=== PATIENT | female | born 1950 | race Caucasian/White ===

== ENCOUNTER 2018-09-13 12:32 | Emergency (ER) | payer OTHER ==
--- OUTSIDE RECORDS SUMMARY | 2018-09-13 12:37 | XMS REPORT | Clinical Summary ---
:1950 Author Organization [facility] Address [address] [place] [address] Care Team Providers Name Role Phone Kyra Pruitt MD Primary Care Provider Allergies Active Allergy Reactions Severity Noted Date Comments Sulfamethoxazole-Trime Hives, Itching High 11/28/2017 thoprim Codeine Itching High 11/28/2017 hallucinations Lactase 04/06/2018 Inflammation Meperidine Hives, Itching, High 11/28/2017 hallucination Other (See Comments) Gluten 04/06/2018 Pressure / constipation Esomeprazole Magnesium Itching High 12/21/2017 Other Food 04/19/2018 nutrasweet Proton Pump Inhibitors Itching 11/28/2017 patoprazole and omeprazole Medications Medication Sig Dispensed Refills Start Date End Date Status albuterol Take 1 ampule by 0 Active (ACCUNEB) 1.25 nebulization every mg/3 mL nebulizer 6 (six) hours as solution needed for wheezing. albuterol (PROAIR Inhale 2 puffs 0 Active HFA,PROVENTIL every 6 (six) HFA,VENTOLIN HFA) hours as needed 90 mcg/actuation for wheezing. inhaler furosemide Take 20 mg by 0 06/11/2018 Active (LASIX) 20 mg mouth daily. tablet candesartan Take 8 mg by mouth 5 06/18/2018 Active (ATACAND) 8 MG daily. tablet traMADol (ULTRAM) Take 50 mg by 2 06/15/2018 Active 50 mg tablet mouth 2 (two) times a day. ondansetron Take 4 mg by mouth 2 07/05/2018 Active (ZOFRAN) 4 MG as needed. tablet ARMOUR THYROID 60 Take 60 mg by 2 06/26/2018 Active mg tablet mouth daily. traMADol (ULTRAM) Take 50 mg by 2 10/09/2017 Discontinued 50 mg tablet mouth 2 (two) 9 times a day as needed. furosemide Take 10 mg by 0 Discontinued (LASIX) 20 mg mouth 2 (two) 9 tablet times a day. Pt takes one half of a 20mg tab bid metoprolol Take 12.5 mg by 0 Discontinued tartrate mouth 2 (two) 9 (LOPRESSOR) 25 mg times a day. tablet albuterol Take 1 ampule by 0 Discontinued (ACCUNEB) 1.25 nebulization every 9 mg/3 mL nebulizer 6 (six) hours as solution needed for wheezing. losartan (COZAAR) Take 50 mg by 0 Discontinued 50 MG tablet mouth daily. 9 thyroid, pork, Take 1 tablet by 0 Discontinued (NATURE-THROID) mouth. 9 113.75 mg tablet UNABLE TO FIND Cleanse More 0 Discontinued 9 losartan (COZAAR) Take 100 mg by 0 Discontinued 100 MG tablet mouth daily. 9 losartan (COZAAR) Take 1 tablet (100 90 tablet 3 04/11/2018 Discontinued 100 MG tablet mg total) by mouth 9 daily. enoxaparin Inject 0.4 mL (40 5.6 mL 0 04/21/2018 (LOVENOX) 40 mg total) under 9 mg/0.4 mL syringe the skin daily for 14 days. furosemide Take 0.5 tablets 15 tablet 0 04/20/2018 (LASIX) 20 mg (10 mg total) by 9 tablet mouth daily for 30 days. Pt takes one half of a 20mg tab bid traMADol (ULTRAM) Take 1 tablet (50 28 tablet 0 04/20/2018 50 mg tablet mg total) by mouth 9 every 6 (six) hours as needed for moderate pain for up to 7 days. Active Problems Problem Noted Date Morbid (severe) obesity due to excess calories 04/18/2018 Preop cardiovascular exam 04/11/2018 Hypothyroid 04/11/2018 COPD (chronic obstructive pulmonary disease) 04/11/2018 Essential hypertension 04/11/2018 LVH (left ventricular hypertrophy) 04/11/2018 Nonrheumatic aortic valve insufficiency 04/11/2018 Encounters Date Type Specialty Care Team Description Orders Only General Surgery Crane, Essential hypertension ( Primary Dx); 9 Joselyn L, Morbid (severe) obesity due to excess calories (HCC); MA Hypothyroidism, unspecified type; Bariatric surgery status; Intestinal malabsorption, unspecified type; Weight loss; Vitamin deficiency Hospital Encounter Radiology Clarence Garcia 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 Hospital Encounter Clarence Crawley 9 MD Erik Hospital Encounter Radiology Clarence Garcia 9 MD Erik Transcribe Orders Radiology Clarence Garcia 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 (Primary Dx) Office Visit General Surgery Loreta Palm Surgery follow-up 9 N., PA examination (Primary Sergio, Jose, Dx) Orders Only General Surgery Antonia Garcia, JOS Obesity (BMI 35.0- 39.9 9 without comorbidity) (Primary Dx) Telephone General Surgery Ion, 9 Joselyn L, MA Telephone General Surgery Ion, 9 Joselyn L, MA Telephone General Surgery Crane, 9 Joselyn L, MA Orders Only General Surgery RadhaAntonia, MA Weight loss (Primary Dx); 9 Vitamin deficiency; Intestinal malabsorption, unspecified type; Bariatric surgery status Documentation Weight Management Damaris Cano 30 Day Bariatric 9 Follow Up Office Visit General Surgery Sergio, Jose, Morbid obesity (HCC) ( Primary Dx); 9 Essential hypertension; Loreta Palm BMI 40.0-44.9, adult (HCC); N., PA Other specified hypothyroidism; Fibromyalgia Telephone General Surgery Loreta Palm 9 NGeno, PA Patient Outreach Quality Stacy Billings 9 PharmD Telephone General Surgery Jose Hill 9 MD Telephone General Surgery Jose Hill, Linsey MCDUFFIE Surgery General Surgery Sergio, Jose, LAPAROSCOPIC LYSIS OF 9 ADHESIONS, REMOVAL OF ERODED BAND MESH , PARTIAL GASTRECTOMY WITH MONI EN Y GASTROJEJUNOSTOMY WITH INTRAOPERATIVE ENDOSCOPY Anesthesia Event General Surgery Seun Smyth, Linsey Trevino NP Hospital Encounter General Surgery Sergio, Jose, Morbid (severe) obesity due to excess calories (HCC) (Primary Dx); 9 - MD Other complications of gastric band procedure; Swallowing difficulty; 9 Gastric reflux Office Visit Cardiology Edson Aranda Preop cardiovascular exam ( Primary Dx); 9 MD Guilherme Essential hypertension; Nonrheumatic aortic valve insufficiency; LVH (left ventricular hypertrophy) Transcribe Orders Procedural Cardiology Edson Aranda Pre-op evaluation 9 MD Guilherme (Primary Dx) Orders Only General Surgery Moore, Lyudmila Cardiomyopathy, 9 R, RN unspecified type (HCC) (Primary Dx) Orders Only General Surgery Moore, Lyudmila Preoperative testing 9 R, RN (Primary Dx) Orders Only General Surgery Moore, Lyudmila Preoperative testing 9 R, RN (Primary Dx) Pre-Admit Testing Pre-Admission Testing Sergio, Jose, Preoperative testing; 9 Appointment MD Bariatric surgery status Orders Only General Surgery Moore, Lyudmila Preoperative testing (Primary Dx); 9 R, ruffling hemmer automatic surgery status Office Visit General Surgery Sergio, Jose, Gastroesophageal reflux disease, esophagitis presence not specified (Primary Dx); 8 Gastric band erosion; Morbid obesity due to excess calories (HCC); Essential hypertension Consult Weight Management Sergio, Joes, History of bariatric surgery (Primary Dx); 8 Hypertension, unspecified type Leydi Champagne, RD Consult Weight Management Sergio, Jose, History of bariatric surgery; 8 Hypertension, unspecified type 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 Bruno, 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 Surgery Gastroenterology Sergio, Jose, EGD WITH BIOPSY 8 Anesthesia Event Gastroenterology Jordin Chew MD Hospital Encounter Gastroenterology Bhumika HillilAnderson MD Transcribe Orders Weight Management (Del)Anderson Moyer Abstract General Surgery Antonia Garcia MA 8 Office Visit General Surgery Jose Hill, Gastroesophageal reflux disease, esophagitis presence not specified (Primary Dx); Anderson MCDUFFIE Morbid obesity due to excess calories; History of bariatric surgery; Hypertension, unspecified type; Dysphagia, unspecified type after 09/12/2017 Family History Medical History Relation Name Comments Alzheimer's disease Mother Relation Name Status Comments Mother Social History Tobacco Use Types Packs/Day Years Used Date Never Smoker Smokeless Tobacco: Never Used Alcohol Use Drinks/Week oz/Week Comments No Sex Assigned at Date Recorded Not on file Job Start Date Occupation Industry Not on file Not on file Not on file Travel History Travel Start Travel End No recent travel history available. Last Filed Vital Signs Vital Sign Reading Time Taken Blood Pressure 136/64 09/05/2018 1:00 PM CDT Pulse 66 09/05/2018 1:00 PM CDT Temperature 36.6 C (97.9 F) 09/05/2018 8:35 AM CDT Respiratory Rate 18 09/05/2018 1:00 PM CDT Oxygen Saturation 98% 09/05/2018 1:00 PM CDT Inhaled Oxygen Concentration - - Weight 90.7 kg (200 lb) 09/05/2018 8:43 AM CDT Height 160 cm (5' 3") 09/05/2018 8:43 AM CDT Body Mass Index 35.43 09/05/2018 8:43 AM CDT Plan of Treatment Date Type Specialty Care Team Description 2018 Consult Weight Management Jose Hill MD [address] [facility] [address] [place] [id number] [phone] 10/16/2018 Office Visit General Surgery Jose Hill MD [address] [facility] [address] [place] [id number] Health Maintenance Due Date Last Done Comments BREAST CANCER SCREENING 2002 COLONOSCOPY SCREENING 2002 SHINGLES VACCINES (#1) 2002 65+ PNEUMOCOCCAL VACCINE (1 of 2 - PCV13) 2017 INFLUENZA VACCINE 10/25/2018 Implants Implanted Type Area Cosmetics Demonstrator Device Shelf Model / Identifier Expiration Serial / Date Lot Reprocessed Ethicon Endo 45cm Ultracision Harmonic Connor Curved Lamberto, With Advanced Hemostasis Cautery / N/A: SEBASTIÁN 11/15/2020 [id number] / Implanted: Qty: 1 on 04/18/2018 by Jose Hill MD Electrosurgery N/A SUSTAINABILITY / SOLUTIONS [id number] (FORMERLY ASCENT) Drain Wnd Chnl 19fr 4in Rnd Hbls Fl-Flut W/ 4in Trocar - [id number] Surgical N/A: ETHICON DIV OF 2231 / Implanted: Qty: 1 on 04/18/2018 by Jose Hill MD Implants; N/A AMBER & / Expanders; AMBER Extenders; Surgical Wires Procedures Procedure Name Priority Date/Time Associated Comments Diagnosis US NEEDLE BIOPSY Routine 09/05/2018 10:57 Neoplasm of Results for this AM CDT uncertain behavior procedure are in of left kidney the results section. SURGICAL PATHOLOGY Routine 09/05/2018 10:43 Results for this REQUEST AM CDT procedure are in the results section. ESTIMATED GFR STAT 09/05/2018 8:29 Results for this AM CDT procedure are in the results section. BASIC METABOLIC PANEL STAT 09/05/2018 8:29 Results for this AM CDT procedure are in the results section. PARTIAL THROMBOPLASTIN STAT 09/05/2018 8:29 Results for this TIME (PTT) AM CDT procedure are in the results section. PROTHROMBIN TIME WITH STAT 09/05/2018 8:29 Results for this INR AM CDT procedure are in the results section. HC COMPLETE BLD COUNT STAT 09/05/2018 8:29 Results for this W/AUTO DIFF AM CDT procedure are in the results section. T3 Routine 06/19/2018 8:46 Weight loss Results for this AM CDT Vitamin deficiency procedure are in Intestinal the results malabsorption, section. unspecified type Bariatric surgery status ZINC LEVEL, SERUM Routine 06/19/2018 8:46 Weight loss Results for this AM CDT Vitamin deficiency procedure are in Intestinal the results malabsorption, section. unspecified type Bariatric surgery status VITAMIN B1 LEVEL, WHOLE Routine 06/19/2018 8:46 Weight loss Results for this BLOOD AM CDT Vitamin deficiency procedure are in Intestinal the results malabsorption, section. unspecified type Bariatric surgery status FERRITIN LEVEL Routine 06/19/2018 8:46 Weight loss Results for this AM CDT Vitamin deficiency procedure are in Intestinal the results malabsorption, section. unspecified type Bariatric surgery status FOLATE LEVEL Routine 06/19/2018 8:46 Weight loss Results for this AM CDT Vitamin deficiency procedure are in Intestinal the results malabsorption, section. unspecified type Bariatric surgery status COPPER LEVEL, SERUM Routine 06/19/2018 8:46 Weight loss Results for this AM CDT Vitamin deficiency procedure are in Intestinal the results malabsorption, section. unspecified type Bariatric surgery status VITAMIN D 25 HYDROXY Routine 06/19/2018 8:46 Weight loss Results for this LEVEL AM CDT Vitamin deficiency procedure are in Intestinal the results malabsorption, section. unspecified type Bariatric surgery status VITAMIN B12 LEVEL Routine 06/19/2018 8:46 Weight loss Results for this AM CDT Vitamin deficiency procedure are in Intestinal the results malabsorption, section. unspecified type Bariatric surgery status VITAMIN A LEVEL, PLASMA Routine 06/19/2018 8:46 Weight loss Results for this OR SERUM AM CDT Vitamin deficiency procedure are in Intestinal the results malabsorption, section. unspecified type Bariatric surgery status CBC WITH PLATELET AND Routine 06/19/2018 8:46 Weight loss Results for this DIFFERENTIAL AM CDT Vitamin deficiency procedure are in Intestinal the results malabsorption, section. unspecified type Bariatric surgery status PARATHYROID HORMONE Routine 06/19/2018 8:46 Weight loss Results for this AM CDT Vitamin deficiency procedure are in Intestinal the results malabsorption, section. unspecified type Bariatric surgery status HEMOGLOBIN A1C Routine 06/19/2018 8:46 Weight loss Results for this AM CDT Vitamin deficiency procedure are in Intestinal the results malabsorption, section. unspecified type Bariatric surgery status THYROID STIMULATING Routine 06/19/2018 8:46 Weight loss Results for this HORMONE AM CDT Vitamin deficiency procedure are in Intestinal the results malabsorption, section. unspecified type Bariatric surgery status T4, FREE Routine 06/19/2018 8:46 Weight loss Results for this AM CDT Vitamin deficiency procedure are in Intestinal the results malabsorption, section. unspecified type Bariatric surgery status TOTAL IRON BINDING Routine 06/19/2018 8:46 Weight loss Results for this CAPACITY AM CDT Vitamin deficiency procedure are in Intestinal the results malabsorption, section. unspecified type Bariatric surgery status LIPID PANEL Routine 06/19/2018 8:46 Weight loss Results for this AM CDT Vitamin deficiency procedure are in Intestinal the results malabsorption, section. unspecified type Bariatric surgery status COMPREHENSIVE METABOLIC Routine 06/19/2018 8:46 Weight loss Results for this PANEL AM CDT Vitamin deficiency procedure are in Intestinal the results malabsorption, section. unspecified type Bariatric surgery status HC COMPLETE BLD COUNT Routine 04/20/2018 4:10 Results for this W/AUTO DIFF AM ROUTER TENDER procedure are in the results section. HC COMPLETE BLD COUNT Timed 04/19/2018 5:30 Results for this W/AUTO DIFF PM ROUTER TENDER procedure are in the results section. FL UGI W KUB Routine 04/19/2018 9:58 Results for this AM ROUTER TENDER procedure are in the results section. ESTIMATED GFR Routine 04/19/2018 5:33 Results for this AM ROUTER TENDER procedure are in the results section. BASIC METABOLIC PANEL Routine 04/19/2018 5:33 Results for this AM ROUTER TENDER procedure are in the results section. HC COMPLETE BLD COUNT Routine 04/19/2018 5:33 Results for this W/AUTO DIFF AM ROUTER TENDER procedure are in the results section. ESTIMATED GFR Routine 04/18/2018 8:09 Results for this PM ROUTER TENDER procedure are in the results section. BASIC METABOLIC PANEL Routine 04/18/2018 8:09 Results for this PM ROUTER TENDER procedure are in the results section. HC COMPLETE BLD COUNT Routine 04/18/2018 8:09 Results for this W/AUTO DIFF PM ROUTER TENDER procedure are in the results section. ID AN ELECTIVE Routine 04/18/2018 1:36 ENDOTRACHEAL AIRWAY PM ROUTER TENDER Procedure Note - Aric Lal CRNA - 04/18/2018 1:36 PM ROUTER TENDER ANESTHESIA INTUBATION Date/Time: 04/18/2018 1:11 PM Performed by: Aric Lal CRNA Authorized by: Ti Sarmiento MD Location: OR Urgency: Elective Difficult Airway: No Anesthesiologist: Ti Sarmiento MD Resident/REDYE HAND/AA: Aric Lal CRNA Performed by: resident/REDYE HAND/AA Preoxygenated with 100% O2: Yes Mask Ventilation: Not attempted Final Airway Type: Endotracheal airway Final Endotracheal Airway: ETT Cuffed: Yes Technique Used: Direct laryngoscopy Devices/Methods Used in Placement: Intubating stylet Insertion Site: Oral Blade Type: Romero Laryngoscope Blade/Videolaryngoscope Blade Size: 2 ETT Size (mm): 7.0 Cuff at minimum occlusion pressure: Yes Measured from: Gums ETT to Gums (cm): 21 Placement Verified by: CO2 detection, direct visualization and equal breath sounds Laryngoscopic view: Grade IIa - partial view of glottis Rapid Sequence Induction (RSI): Yes Number of Attempts at Approach: 1 GASTROENTEROSTOMY, MONI-EN-Y, 04/18/2018 1:15 PM Other complications of gastric LAPAROSCOPIC, WITH ROUTER TENDER band procedure INTRAOPERATIVE ENDOSCOPY Swallowing difficulty Gastric reflux Case Notes BMI 41, R/S PER LAN 04/10 K[facility] Special Needs BMI 41 SURGICAL PATHOLOGY REQUEST Routine 04/18/2018 Results for 8:55 AM ROUTER TENDER this procedure are in the results section. ECHOCARDIOGRAM 2D COMPLETE W Routine 04/11/2018 Pre-op evaluation Results for MMODE SPECTRAL COLOR DOPPLER 10:06 AM ROUTER TENDER this (13367) procedure are in the results section. NM MYOCARDIAL PERFUSION STRESS Routine 04/11/2018 Pre-operative Results for ONLY 10:06 AM ROUTER TENDER cardiovascular this examination procedure are in the results section. CV STRESS TEST NUCLEAR CARDIO Routine 04/11/2018 Pre-operative Results for 10:06 AM ROUTER TENDER cardiovascular this examination procedure are in the results section. URINALYSIS, AUTOMATED WITH Routine 04/06/2018 Preoperative Results for MICROSCOPY 5:12 PM ROUTER TENDER testing this Bariatric surgery procedure are status in the results section. ECG 12-LEAD Routine 04/06/2018 Preoperative Results for 2:26 PM ROUTER TENDER testing this Bariatric surgery procedure are status in the results section. HEMOGLOBIN A1C Routine 04/06/2018 Preoperative Results for 2:15 PM ROUTER TENDER testing this Bariatric surgery procedure are status in the results section. PARATHYROID HORMONE Routine 04/06/2018 Preoperative Results for 2:15 PM ROUTER TENDER testing this Bariatric surgery procedure are status in the results section. HC COMPLETE BLD COUNT W/AUTO Routine 04/06/2018 Preoperative Results for DIFF 2:15 PM ROUTER TENDER testing this Bariatric surgery procedure are status in the results section. PROTHROMBIN TIME WITH INR Routine 04/06/2018 Preoperative Results for 2:15 PM ROUTER TENDER testing this Bariatric surgery procedure are status in the results section. PARTIAL THROMBOPLASTIN TIME Routine 04/06/2018 Preoperative Results for (PTT) 2:15 PM ROUTER TENDER testing this Bariatric surgery procedure are status in the results section. VITAMIN A LEVEL, PLASMA OR Routine 04/06/2018 Preoperative Results for SERUM 2:15 PM ROUTER TENDER testing this Bariatric surgery procedure are status in the results section. COPPER LEVEL, SERUM Routine 04/06/2018 Preoperative Results for 2:15 PM ROUTER TENDER testing this Bariatric surgery procedure are status in the results section. VITAMIN B1 LEVEL, WHOLE BLOOD Routine 04/06/2018 Preoperative Results for 2:15 PM ROUTER TENDER testing this Bariatric surgery procedure are status in the results section. ZINC LEVEL, SERUM Routine 04/06/2018 Preoperative Results for 2:15 PM ROUTER TENDER testing this Bariatric surgery procedure are status in the results section. TYPE AND SCREEN Routine 04/06/2018 Preoperative Results for 2:15 PM ROUTER TENDER testing this Bariatric surgery procedure are status in the results section. T3 Routine 04/06/2018 Results for 1:54 PM ROUTER TENDER this procedure are in the results section. ESTIMATED GFR Routine 04/06/2018 Results for 1:54 PM ROUTER TENDER this procedure are in the results section. FERRITIN LEVEL Routine 04/06/2018 Preoperative Results for 1:54 PM ROUTER TENDER testing this Bariatric surgery procedure are status in the results section. COMPREHENSIVE METABOLIC PANEL Routine 04/06/2018 Preoperative Results for 1:54 PM ROUTER TENDER testing this Bariatric surgery procedure are status in the results section. LIPID PANEL Routine 04/06/2018 Preoperative Results for 1:54 PM ROUTER TENDER testing this Bariatric surgery procedure are status in the results section. TOTAL IRON BINDING CAPACITY Routine 04/06/2018 Preoperative Results for 1:54 PM ROUTER TENDER testing this Bariatric surgery procedure are status in the results section. T4, FREE Routine 04/06/2018 Preoperative Results for 1:54 PM ROUTER TENDER testing this Bariatric surgery procedure are status in the results section. THYROID STIMULATING HORMONE Routine 04/06/2018 Preoperative Results for 1:54 PM ROUTER TENDER testing this Bariatric surgery procedure are status in the results section. ESTIMATED GFR Routine 04/06/2018 Results for 1:53 PM ROUTER TENDER this procedure are in the results section. FERRITIN LEVEL Routine 04/06/2018 Results for 1:53 PM ROUTER TENDER this procedure are in the results section. COMPREHENSIVE METABOLIC PANEL Routine 04/06/2018 Results for 1:53 PM ROUTER TENDER this procedure are in the results section. LIPID PANEL Routine 04/06/2018 Results for 1:53 PM ROUTER TENDER this procedure are in the results section. VITAMIN B12 LEVEL Routine 04/06/2018 Preoperative Results for 1:53 PM ROUTER TENDER testing this Bariatric surgery procedure are status in the results section. VITAMIN D 25 HYDROXY LEVEL Routine 04/06/2018 Preoperative Results for 1:53 PM ROUTER TENDER testing this Bariatric surgery procedure are status in the results section. FOLATE LEVEL Routine 04/06/2018 Preoperative Results for 1:53 PM ROUTER TENDER testing this Bariatric surgery procedure are status in the results section. T3 Routine 04/06/2018 Preoperative Results for 1:53 PM ROUTER TENDER testing this Bariatric surgery procedure are status in the results section. INSULIN, RANDOM Routine 04/06/2018 Preoperative Results for 1:53 PM ROUTER TENDER testing this Bariatric surgery procedure are status in the results section. C-REACTIVE PROTEIN Routine 04/06/2018 Preoperative Results for 1:53 PM ROUTER TENDER testing this Bariatric surgery procedure are status in the results section. AMB REFERRL TO WEIGHT Routine 01/01/2018 History of MANAGEMENT- BARIATRIC SERVICES 12:56 PM CDT bariatric surgery Hypertension, unspecified type SURGICAL PATHOLOGY REQUEST Routine 12/21/2017 Results for 9:23 AM CDT this procedure are in the results section. 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 Conscious sedation:After the risks and benefits of conscious sedation were discussed, midazolam and fentanyl were administered intravenously.Throughout the conscious sedation duration, the patient was continuously monitored by a registered nurse. The physician intraservice [id number] time with the patient was 26 minutes. Technique:Alternative therapies and the procedure's risks and benefits were discussed with the patient.Written, informed consent was obtained. The targeted left renal lesion measuring approximately 2 cm in dimension was imaged sonographically.The sonographic appearance of the targeted lesion correlates without significant change with the CT and MR appearance of the lesion per the prior imaging. The overlying skin was prepared using routine, sterile technique.For anesthesia, 1% buffered lidocaine solution was injected into the involved skin.Using real-time sonographic guidance, routine technique, and an infracostal approach, three 18-gauge core biopsy samples, each measuring approximately 3.3 cm in length, were obtained using a BioPince needle.The samples obtained were reviewed by the attending pathologist and were deemed sufficient for diagnostic evaluation. Estimated blood loss:Less than 1 cc. Complications:None. Specimens removed:As above. Assistants:None. IMPRESSION: Multiple 18-gauge core biopsy samples were obtained from the targeted 2 cm in dimension left renal lesion using real-time sonographic guidance and without incident as described above. Thank you for allowing us to participate in the care of your patient. 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 Conscious sedation: After the risks and benefits of conscious sedation were discussed, midazolam and fentanyl were administered intravenously. Throughout the conscious sedation duration, the patient was continuously monitored by a registered nurse. The physician intraservice [id number] time with the patient was 26 minutes. Technique: Alternative therapies and the procedure's risks and benefits were discussed with the patient. Written, informed consent was obtained. The targeted left renal lesion measuring approximately 2 cm in dimension was imaged sonographically. The sonographic appearance of the targeted lesion correlates without significant change with the CT and MR appearance of the lesion per the prior imaging. The overlying skin was prepared using routine, sterile technique. For anesthesia, 1% buffered lidocaine solution was injected into the involved skin. Using real-time sonographic guidance, routine technique, and an infracostal approach, three 18-gauge core biopsy samples, each measuring approximately 3.3 cm in length, were obtained using a BioPince needle. The samples obtained were reviewed by the attending pathologist and were deemed sufficient for diagnostic evaluation. Estimated blood loss: Less than 1 cc. Complications: None. Specimens removed: As above. Assistants: None. IMPRESSION: Multiple 18-gauge core biopsy samples were obtained from the targeted 2 cm in dimension left renal lesion using real-time sonographic guidance and without incident as described above. Thank you for allowing us to participate in the care of your patient. [facility]-[id number] Performing Organization Address City/State/Zipcode Phone Number FRANNIE [address] [place] [address] Surgical pathology request (09/05/2018 10:43 AM CDT)Only the most recent of3 resultswithin the time period is included. Pathologist [facility] DEPARTMENT OF PATHOLOGY AND GENOMIC MEDICINE Surgical pathology See link below [facility] DEPARTMENT OF report for PDF Lab PATHOLOGY AND Report GENOMIC MEDICINE Result status This is Final [facility] DEPARTMENT OF Report for PATHOLOGY AND [id number] GENOMIC MEDICINE Specimen Performing Organization Address City/[facility]/Zipcode Phone Number [facility] DEPARTMENT OF PATHOLOGY [address] [facility] [place] [address] AND [facility] Estimated GFR (09/05/2018 8:29 AM CDT)Only the most recent of5 resultswithin the time period is included. [facility] Estimated GFR >=90 mL/min/1.73 [place] JAIN Comment: [address] CatergoryUnitsInterpretation HOSPITAL G1 >=90 Normal or high G2 60-89Mildly decreased [id number] to moderately decreased [id number] to severely decreased G4 15-29Severely decreased G5 <15Kidney failure The eGFR was calculated using the Chronic Kidney Disease Epidemiology Collaboration (CKD-EPI) equation. Interpretation is based on recommendations of the National Kidney Foundation-Kidney Disease Outcomes Quality Initiative (NKF-KDOQI) published in 2014. Specimen Plasma specimen Performing Organization Address City/[facility]/Zipcode Phone Number [facility] DEPARTMENT OF PATHOLOGY [address] [facility] [place] [address] AND [facility] MEDICINE [facility] [id number] [place] [address] HOSPITAL Partial thromboplastin time, activated (09/05/2018 8:29 AM CDT)Only the most recent of2 resultswithin the time period is included. [facility] PTT 34.3 23.0 - 36.0 HUMBERTO JAIN Comment: sec ANGUILLA PTT therapeutic range for unfractionated heparin is HOSPITAL 61.0-112.0 seconds which corresponds to Anti-Xa 0.3-0.7 U/ml. Specimen Blood Performing Organization Address City/[facility]/Zipcode Phone Number [facility] DEPARTMENT OF PATHOLOGY [address] [place] [address] Prothrombin time with INR (09/05/2018 8:29 AM CDT)Only the most recent of2 resultswithin the time period is included. Prothrombin time 13.5 11.5 - 14.5 [facility] INR 1.1 [place] Comment: [facility] International Normalized Ratio (INR) is a therapeutic [facility] monitoring tool for patients who are stable on oral anticoagulant therapy. An INR of 2.0-3.0 is suggested for deep vein thrombosis/pulmonary embolism. Specimen Blood Performing Organization Address City/[facility]/Zipcode Phone Number [facility] DEPARTMENT OF PATHOLOGY [address] [place] [address] CBC with platelet and differential (09/05/2018 8:29 AM CDT)Only the most recent of7 resultswithin the time period is included. WBC 5.5 4.5 - 11.0 k/uL [facility] RBC 4.24 4.20 - 5.50 [facility] m/uL [facility] HGB 11.7 (L) 12.0 - 16.0 [facility] g/dL [facility] HCT 37.6 37.0 - 47.0 % [facility] MCV 88.7 82.0 - 100.0 fL [facility] MCH 27.6 27.0 - 34.0 pg [facility] MCHC 31.1 31.0 - 37.0 [facility] g/dL [facility] RDW - SD 48.7 37.0 - 55.0 fL [facility] MPV 12.2 (H) 6.9 - 11.0 fL [facility] Platelet count 215 150 - 400 K/uL [facility] Nucleated RBC 0.00 /100 WBC [facility] Neutrophils 49.7 39.0 - 69.0 % [facility] Lymphocytes 41.2 25.0 - 45.0 % [facility] Monocytes 6.7 0.0 - 10.0 % [facility] Eosinophils 1.3 0.0 - 5.0 % [facility] Basophils 0.7 0.0 - 1.0 % [facility] Immature granulocytes 0.4 0.0 - 1.0 % [facility] Specimen Blood Performing Organization Address City/[facility]/Zipcode Phone Number [facility] DEPARTMENT OF PATHOLOGY [id number] [place] [address] AND [facility] [id number] [place] [address] Basic metabolic panel (09/05/2018 8:29 AM CDT)Only the most recent of3 resultswithin the time period is included. Sodium 142 135 - 148 mEq/L [facility] Potassium 4.4 3.5 - 5.0 mEq/L [facility] Chloride 104 98 - 112 mEq/L [facility] CO2 28 24 - 31 mEq/L [facility] Anion gap 10@ANIO 7 - 15 mEq/L [facility] BUN 15 8 - 23 mg/dL [facility] Creatinine 0.63 0.50 - 0.90 mg/dL [facility] Glucose 100 (H) 65 - 99 mg/dL [facility] Calcium 9.6 8.8 - 10.2 mg/dL [facility] Specimen Plasma specimen Performing Organization Address City/[facility]/Zipcode Phone Number [facility] DEPARTMENT OF PATHOLOGY [id number] [place] [address] AND [facility] [id number] [place] [address] Total iron binding capacity (06/19/2018 8:46 AM CDT)Only the most recent of2 resultswithin the time period is included. Iron binding capacity 393 250 - 450 ug/dL [facility] Unsaturated iron binding 362 118 - 369 ug/dL [facility] capacity Iron level 31 27 - 139 ug/dL [facility] Iron saturation 8 (LL) 15 - 55 % [facility] Specimen Blood Narrative Performed At Performed at: [facility] [address] [facility], [id number] Fountain Manager: Malik Khan MD, Phone:[phone] Performing Organization Address [facility] Phone Number [facility] Copper level, serum (06/19/2018 8:46 AM CDT)Only the most recent of2 resultswithin the time period is included. Copper 116 72 - 166 ug/dL [facility] Comment: This test was developed and its performance characteristics determined by [facility]. It has not been cleared or approved by the Food and Drug Administration. Detection Limit=5 Specimen Blood Narrative Performed At Performed at: [id number] Fountain Manager: Christopher Green MD, Phone:[phone] Performing Organization Address [facility] Phone Number [facility] Vitamin B1 level, whole blood (06/19/2018 8:46 AM CDT)Only the most recent of2 resultswithin the time period is included. Vitamin B1, whole 100.1 66.5 - 200.0 [facility] blood Comment: nmol/L This test was developed and its performance characteristics determined by [facility]. It has not been cleared or approved by the Food and Drug Administration. Specimen Blood Narrative Performed At Performed at:[address] [place], [place] [id number] Fountain Manager: Christopher Green MD, Phone:[phone] Performing Organization Address [facility] Phone Number [facility] Zinc level, serum (06/19/2018 8:46 AM CDT)Only the most recent of2 resultswithin the time period is included. Zinc 91 56 - 134 ug/dL [facility] Comment: This test was developed and its performance characteristics determined by [facility]. It has not been cleared or approved by the Food and Drug Administration. Detection Limit=5 Specimen Blood Narrative Performed At Performed at:[address] [place], [place] [id number] Fountain Manager: Christopher Green MD, Phone:[phone] Performing Organization Address [facility] Phone Number [facility] Vitamin A level, plasma or serum (06/19/2018 8:46 AM CDT)Only the most recent of2 resultswithin the time period is included. Vitamin A 27.6 22.0 - 69.5 [facility] (retinol) Comment: ug/dL Reference intervals for vitamin A determined from [facility] internal studies. Individuals with vitamin A less than 20 ug/dL are considered vitamin A deficient and those with serum concentrations less than 10 ug/dL are considered severely deficient. This test was developed and its performance characteristics determined by [facility]. It has not been cleared or approved by the Food and Drug Administration. Specimen Blood Narrative Performed At Performed at: - [facility] [address] [place], [id number] Fountain Manager: Christopher Green MD, Phone:[phone] Performing Organization Address [facility] Phone Number [facility] Vitamin D 25 hydroxy level (06/19/2018 8:46 AM CDT)Only the most recent of2 resultswithin the time period is included. Vitamin D, 33.4 30.0 - 100.0 [facility] 25-hydroxy Comment: ng/mL Vitamin D deficiency has been defined by the Saline of Medicine and an Endocrine Society practice guideline as a level of serum 25-OH vitamin D less than 20 ng/mL (1,2). The Endocrine Society went on to further define vitamin D insufficiency as a level between 21 and 29 ng/mL (2). 1. IOM (Saline of Medicine). 2010. Dietary reference intakes for calcium and D. [place]: The National Academies Press. 2. Sussy MF, Natalee NC, Camilo JARAMILLO, et al. Evaluation, treatment, and prevention of vitamin D deficiency: an Endocrine Society clinical practice guideline. JCEM. 2010; 96(7):1911-30. Specimen Blood Narrative Performed At Performed at: [facility] [address] [place], [id number] Fountain Manager: Malik Khan MD, Phone:[phone] Performing Organization Address [facility] Phone Number [facility] T3 (06/19/2018 8:46 AM CDT)Only the most recent of3 resultswithin the time period is included. T3 108 71 - 180 ng/dL [facility] Specimen Blood Narrative Performed At Performed at:[address] [place], [place] [id number] Fountain Manager: Malik Khan MD, Phone:[phone] Performing Organization Address [facility] Phone Number [facility] Thyroid stimulating hormone (06/19/2018 8:46 AM CDT)Only the most recent of2 resultswithin the time period is included. TSH 2.420 0.450 - 4.500 uIU/mL [facility] Specimen Blood Narrative Performed At Performed at:[address] [place], [place] [id number] Fountain Manager: Malik Khan MD, Phone:[phone] Performing Organization Address [facility] Phone Number [facility] T4, free (06/19/2018 8:46 AM CDT)Only the most recent of2 resultswithin the time period is included. T4, free 0.92 0.82 - 1.77 ng/dL [facility] Specimen Blood Narrative Performed At Performed at:[address] [place], [place] [id number] Fountain Manager: Malik Khan MD, Phone:[phone] Performing Organization Address [facility] Phone Number [facility] Parathyroid hormone (06/19/2018 8:46 AM CDT)Only the most recent of2 resultswithin the time period is included. PTH 56 15 - 65 pg/mL [facility] Specimen Blood Narrative Performed At Performed at:[address] [place], [place] [id number] Fountain Manager: Malik Khan MD, Phone:[phone] Performing Organization Address [facility] Phone Number [facility] Hemoglobin A1c (06/19/2018 8:46 AM CDT)Only the most recent of2 resultswithin the time period is included. Hemoglobin A1C 5.4 4.8 - 5.6 % [facility] Comment: Prediabetes: 5.7 - 6.4 Diabetes: >6.4 Glycemic control for adults with diabetes: <7.0 Specimen Blood Narrative Performed At Performed at:[address] [place], [place] [id number] Fountain Manager: Malik Khan MD, Phone:[phone] Performing Organization [facility] Number [facility] Folate level (06/19/2018 8:46 AM CDT)Only the most recent of2 resultswithin the time period is included. Folate 13.2 >3.0 ng/mL [facility] Comment: A serum folate concentration of less than 3.1 ng/mL is considered to represent clinical deficiency. Specimen Blood Narrative Performed At Performed at:[address] [place], [place] [id number] Fountain Manager: Malik Khan MD, Phone:[phone] Performing Organization [facility] Number [facility] Ferritin level (06/19/2018 8:46 AM CDT)Only the most recent of3 resultswithin the time period is included. Ferritin level 18 15 - 150 ng/mL [facility] Specimen Blood Narrative Performed At Performed at:[address] [place], [place] [id number] Fountain Manager: Malik Khan MD, Phone:[phone] Performing Organization [facility] Number [facility] Vitamin B12 level (06/19/2018 8:46 AM CDT)Only the most recent of2 resultswithin the time period is included. Vitamin B12 1,093 232 - 1,245 pg/mL [facility] Specimen Blood Narrative Performed At Performed at:[address] [place], [place] [id number] Fountain Manager: Malik Khan MD, Phone:[phone] Performing Organization [facility] Number [facility] Lipid panel (06/19/2018 8:46 AM CDT)Only the most recent of3 resultswithin the time period is included. Cholesterol 168 100 - 199 mg/dL [facility] Triglycerides 151 (H) 0 - 149 mg/dL [facility] HDL cholesterol 44 >39 mg/dL [facility] VLDL cholesterol maria luisa 30 5 - 40 mg/dL [facility] LDL cholesterol calculated 94 0 - 99 mg/dL [facility] Non-HDL cholesterol 124 0 - 129 mg/dL [facility] Specimen Blood Narrative Performed At [facility]formed at: [id number] Fountain Manager: Malik Khan MD, Phone:[phone] Performing Organization Address City/State/Zipcode Phone Number [facility] Comprehensive metabolic panel (06/19/2018 8:46 AM CDT)Only the most recent of3 resultswithin the time period is included. Glucose 103 (H) 65 - 99 mg/dL [facility] BUN, whole blood 19 8 - 27 mg/dL [facility] Creatinine 0.66 0.57 - 1.00 mg/dL [facility] EGFR Non-Afr. Burmese 93 >59 mL/min/1.73 [facility] EGFR 107 >59 mL/min/1.73 [facility] BUN/creatinine ratio 29 (H) 12 - 28 [facility] Sodium 144 134 - 144 mmol/L [facility] Potassium 4.0 3.5 - 5.2 mmol/L [facility] Chloride 107 (H) 96 - 106 mmol/L [facility] CO2 24 20 - 29 mmol/L [facility] Calcium 9.4 8.7 - 10.3 mg/dL [facility] Protein 6.3 6.0 - 8.5 g/dL [facility] Albumin, S 3.9 3.6 - 4.8 g/dL [facility] Globulin, total 2.4 1.5 - 4.5 g/dL [facility] Albumin/globulin ratio 1.6 1.2 - 2.2 [facility] Total bilirubin 0.3 0.0 - 1.2 mg/dL [facility] Alkaline phosphatase 153 (H) 39 - 117 IU/L [facility] AST 29 0 - 40 IU/L [facility] ALT 39 (H) 0 - 32 IU/L [facility] Specimen Blood Narrative Performed At Performed at: [facility] [place], [id number] Fountain Manager: Malik Khan MD, Phone:[phone] Performing Organization Address [facility] Phone Number [facility] FL UGI W KUB (04/19/2018 9:58 AM ROUTER TENDER) Specimen Narrative Performed At EXAMINATION:FL UGI W KUB RADIANT CLINICAL HISTORY:s p revision of vbg to bypass COMPARISON:None. Radiation dose: 133 mGy FINDINGS: Ingested Omnipaque contrast without difficulty. Esophagus is unremarkable. Status post gastric bypass surgery. There is normal passage of contrast through the gastrojejunostomy. There is normal progression of contrast in the small bowel loops in the left abdomen. There is no evidence of intestinal obstruction. No contrast leak identified. There is a drain in the left upper abdomen. IMPRESSION: Status post gastric bypass surgery without evidence of leak or obstruction. [facility]-[id number] Procedure Note Hm Interface, Radiology Results Incoming - 04/19/2018 10:10 AM ROUTER TENDER EXAMINATION: FL UGI W KUB CLINICAL HISTORY: s p revision of vbg to bypass COMPARISON: None. Radiation dose: 133 mGy FINDINGS: Ingested Omnipaque contrast without difficulty. Esophagus is unremarkable. Status post gastric bypass surgery. There is normal passage of contrast through the gastrojejunostomy. There is normal progression of contrast in the small bowel loops in the left abdomen. There is no evidence of intestinal obstruction. No contrast leak identified. There is a drain in the left upper abdomen. IMPRESSION: Status post gastric bypass surgery without evidence of leak or obstruction. [facility]-[id number] Performing Organization Address [facility] Phone Number [facility] [address] [place] [address] Echocardiogram complete w contrast and 3D if needed (04/11/2018 10:06 AM ROUTER TENDER) Velocity Ratio (V1/V2) 0.85 m/s [facility] LV Mass 169.00 (g) [facility] IVS,d 1.13 cm [facility] EF 58.35 % [facility] LA volume 76.00 cm3 [facility] LVPWD,d 1.15 cm [facility] AoV Mean PG 5.29 mmHg [facility] AV LVOT peak gradient 6.73 mmHg [facility] MV valve area p 1/2 method 3.57 cm2 HM [facility] PV Pk Grad 7.99 mmHg HM [facility] E/A ratio 1.15 HM [facility] TDI 1.2 HM [facility] E wave decelartion time 212.39 msec HM [facility] LVOT Diam,S 2.05 cm HM [facility] LVOT area 3.30 cm2 HM [facility] LVOT Vmax 1.30 m/s HM [facility] LVOT VTI 0.31 m HM [facility] AoV Peak PG 9.31 mmHg HM [facility] PV Mean Grad 4.32 mmHg HM [facility] MV Peak E Jose Alfredo 0.84 m/s HM [facility] MV stenosis pressure 1/2 time 61.59 ms HM [facility] MV Peak A Jose Alfredo 0.73 m/s HM [facility] LA Volume Index 36.54 mL/m2 HM [facility] BSA 2.08 m2 HM [facility] Ao Root Diameter 3.16 cm HM [facility] AoV Area, Vmax 2.81 cm2 HM [facility] AoV Area, VTI 2.95 cm2 HM [facility] AoV Vmax 1.53 m/s HM [facility] BSA Dyer 2.28 m2 HM [facility] BSA Haycock 2.25 m2 HM [facility] IVS/LVPW,2D 0.98 HM [facility] Left Atrium Dimension Anterior 3.70 cm HM [facility] LA Area d A4C 81 cm2 HM [facility] LV,d 4.26 cm HM [facility] LV,s 2.96 cm HM [facility] PV VMAX 1.41 m/s HM [facility] PV VTI 0.35 m HM [facility] RVSP (TR) 32.77 mmHg HM [facility] TR Vpeak 2.77 mm/s HM [facility] BMI 42.16 kg/m2 HM [facility] MV E A ratio 1.15 HM [facility] RA pressure 10.00 mmHg HM [facility] TR pk grad 22.77 mmHg HM [facility] AoV area i VTI BSA [place] 1.42 cm2/m2 HM [facility] PV Vmn 0.96 HM [facility] RVSP 32.77 mmHg HM [facility] Ao Root Diameter 3.16 cm HM [facility] AR Press Half Time 1,150.53 ms HM [facility] Mitral Valve E/E' 6.9 HM [facility] LV SYS VOL 33.84 ml HM [facility] LV GUEVARA VOL 81.24 ml HM [facility] LA area s A4C 22.50 cm2 HM [facility] LA Vol MOD A4C 74.12 ml HM [facility] LV SI Teich 2D 22.77 ml/m2 HM [facility] LV SV Teich 2D 47.40 ml HM [facility] LV Vol s Teich PSAX 33.84 ml HM [facility] LVOT SI 49.74 ml/m2 HM [facility] AoV Vmn 1.09 HM [facility] AR slope 0.85 HM [facility] Ar Vmax 3.38 HM [facility] LV FS Cube 2D 30.54 HM [facility] LV FS Teich 2D 30.54 HM [facility] LV NY Mmode BSA 81.00 HM [facility] E/E' ratio 0.70 HM [facility] AoV VTI 0.35 m HM [facility] LV EF,2D 66.49 % HM [facility] MV AE ratio 0.87 HM [facility] LVOT Vmn 0.86 HM [facility] Pt Size 160.02 HM [facility] Pt Wt 107.95 HM [facility] Aov area Vmn 2.61 cm2 HM [facility] LVOT mean grad 3.41 mmHg HM [facility] AoV area I VMN bsa 1.25 cm2/m2 HM [facility] AR DT 3,967.36 msec HM [facility] AR pk grad 45.83 mmHg HM [facility] LV SI Cube 2D 24.68 ml/m2 HM [facility] LV SV Cube 2D 51.39 ml HM [facility] LV vol d cube 2D 77.29 ml HM [facility] LV vol s cube 2D 25.90 ml HM [facility] MV Decel slope 3.97 m/s2 HM [facility] Specimen Narrative Performed At Left Ventricular ejection fraction is 55 - 60% HM [facility] There is mild left ventricular concentric hypertrophy Spectral Doppler shows normal pattern of LV diastolic filling Mild aortic regurgitation Trace mitral valve regurgitation Mild tricuspid valve regurgitation Trace pulmonary valve regurgitation Normal right ventricular size, wall thickness and global function Performing Organization Address City/State/[facility] Phone Number [facility] [address] [place] [address] Cv stress test (04/11/2018 10:06 AM ROUTER TENDER) Resting HR 57 [facility] MUSE Resting BP 141 [facility] MUSE Peak MET Achieved 1.0 [facility] MUSE Protocol Name JAMIE [facility] MUSE Time in Exercise 00:01:00 [facility] MUSE Phase Max Systolic BP 147 [facility] MUSE Max Diastolic BP 75 [facility] MUSE Max Heart Rate 114 [facility] MUSE Max Predicted Heart 155 [facility] MUSE Rate Target HR Formula (220 - Age)*100% [facility] MUSE Stress Test Waveform interpreted in [facility] MUSE Impression report associated with image study. No interpretation is provided as part of this Stress ECG report.-- Target HR 155.00 bpm [facility] MUSE Specimen Narrative Performed At Performing Organization Address City/[facility]/Zipcode Phone Number [facility] MUSE [address] [place] [address] Nm myocardial perfusion (04/11/2018 10:06 AM ROUTER TENDER) Target HR 155.00 bpm [facility] Resting HR 58 BPM [facility] Resting BP 141/95 mmHg [facility] Percent HR 70.97 % HM [facility] Post Peak HR 110 bpm HM [facility] Post Peak BP 143/92 mmHg [facility] Specimen Narrative Performed At Normal myocardial perfusion. HM [facility] Normal left ventricular systolic function. All segments of left ventricle demonstrated normal wall thickness. LVEF > 70% This study result indicates a low risk of cardiac , or nonfatal infarction, over the ensuing year. Performing Organization Address City/[facility] Phone Number [facility] [address] [place] [address] Urinalysis, automated with microscopy (04/06/2018 5:12 PM ROUTER TENDER) Color, UA Yellow [facility] Appearance, UA Clear [facility] Specific gravity, UA 1.015 1.001 - 1.035 [facility] pH, UA 5.0 5.0 - 8.5 [facility] Protein, UA Negative Negative [facility] Glucose, UA Negative Negative [facility] Ketones, UA Negative Negative [facility] Bilirubin, UA Negative Negative [facility] Blood, UA Negative Negative [facility] Nitrite, UA Negative Negative [facility] Urobilinogen, UA <2.0 <2.0 [facility] Leukocyte esterase, Negative Negative [facility] Epithelial cells, UA <1 /HPF [facility] WBC, UA <1 0 - 4 /HPF [facility] RBC, UA 1 0 - 5 /HPF [facility] Bacteria, UA None seen None seen [facility] Yeast, UA None seen [facility] Yeast with None seen [facility] pseudohyphae, [facility]OSP[facility] Specimen Urine Performing Organization Address City/[facility]/Zipcode Phone Number [facility] DEPARTMENT OF PATHOLOGY AND [address] [place] [id number] [address] ECG 12 lead (04/06/2018 2:26 PM ROUTER TENDER) Ventricular rate 62 [facility] Atrial rate 62 [facility] ID interval 150 [facility] QRSD interval 78 [facility] QT interval 432 [facility] QTC interval 438 [facility] P axis 1 59 [facility] QRS axis 1 15 [facility] T wave axis 51 [facility] MUSE EKG impression Normal sinus [facility] MUSE rhythm-Normal ECG-- Specimen Narrative Performed At Performing Organization Address [facility] Phone Number [facility] MUSE [address] [place] [phone] Type and screen (04/06/2018 2:15 PM ROUTER TENDER) Pathologist [facility] ABO grouping A [facility] Rh type POS [facility] Antibody screen (gel) NEG [facility] Specimen Blood Performing Organization Address [facility] Phone Number [facility] DEPARTMENT OF PATHOLOGY AND [address] [place] [phone] [address] Insulin, random (04/06/2018 1:53 PM ROUTER TENDER) Pathologist [facility] Insulin, random 35.2Comment: The mU/L [facility] reference [facility] for fasting insulin is 2.6-24.9 mU/L Specimen Plasma specimen Performing Organization Address City/[facility]/Zipcode Phone Number [facility] DEPARTMENT OF PATHOLOGY AND [address] [place] [phone] [address] C-reactive protein (04/06/2018 1:53 PM ROUTER TENDER) [facility] CRP 1.08 (H) 0.00 - 0.50 mg/dL [facility] Specimen Plasma specimen Performing Organization Address City/[facility]/Zipcode Phone Number [facility] DEPARTMENT OF PATHOLOGY AND [address] [place] [id number] [address] [address] [place] [address] AMB Referral to Weight Management-Bariatric Services (01/01/2018 12:56 PM CDT )after 09/12/2017 Advance Directives Patient has advance care planning documents on file. For more information, please contact:[address] [address]
[2018-09-13 13:18] LABS: Basophils % 0.5 % (0-1.3); Eosinophils % 0.5 % (0-4.4); Hematocrit 37.2 % (36.0-45.0); Lymphocytes % 16.9 % (15.3-44.8); MPV 10.1 fL (7.6-11.3); Monocytes % 4.8 % (3.3-12.3); RBC Red Blood Cell Count 4.34 M/uL (3.86-4.86)
[2018-09-13 13:22] LABS: Protime INR 1.04
[2018-09-13] MEDS ORDERED: MECLIZINE HCL 12.5 MG TAB ONE (13:33)
[2018-09-13 13:39] LABS: ALT/SGPT 67 U/L (12-78); AST/SGOT 60 U/L (15-37); Albumin 3.3 g/dL (3.4-5.0); Alkaline Phosphatase 209 U/L (45-117); BUN Blood Urea Nitrogen 13 mg/dL (7-18); Bicarbonate 26 mmol/L (21-32); Bilirubin Direct 0.1 mg/dL (0-0.2); Bilirubin Total 0.4 mg/dL (0.2-1.0); Glucose Level 107 mg/dL (74-106); Magnesium 2.1 mg/dL (1.8-2.4); NT PRO-BNP 185 pg/mL (<125); Potassium 3.9 mmol/L (3.5-5.1); Protein, Total 6.5 g/dL (6.4-8.2); Sodium Level 142 mmol/L (136-145); Troponin (Emerg Dept Use Only) < 0.02 ng/mL (0.0-0.045)
--- NOTE | 2018-09-13 13:40 | RAD REPORT ---
EXAM DESCRIPTION: CT - Head Brain Wo Cont - 09/13/2018 1:16 pm CLINICAL HISTORY: Dizziness, syncope COMPARISON: None. TECHNIQUE: Axial 5 mm thick images of the head were obtained without IV contrast. All CT scans are performed using dose optimization technique as appropriate and may include automated exposure control or mA/KV adjustment according to patient size. FINDINGS: No intracranial hemorrhage, mass, edema or shift of mid-line structures. No acute infarcti on changes seen. No abnormal extra-axial fluid collections. Minimal atrophy changes are present. No m easurable chronic ischemic change. Ventricles are normal. Mastoid air cells and visualized portions of the paranasal sinuses are clear. No acute bony findings. IMPRESSION: Negative non-contrast CT head examination for acute or significant finding.
--- NOTE | 2018-09-13 13:46 | RAD REPORT ---
EXAM DESCRIPTION: RAD - Chest Single View - 09/13/2018 1:33 pm CLINICAL HISTORY: Weakness, dizziness, shortness of breath COMPARISON: None. TECHNIQUE: AP portable chest image was obtained 1326 hours . FINDINGS: Lungs are clear. Heart and vasculature are normal. No measurable pleural effusion and no p neumothorax. No acute bony abnormality seen. No acute aortic findings suspected. IMPRESSION: No acute cardiopulmonary process.
[2018-09-13] MEDS ORDERED: NA CHLORIDE 0.9% 1,000 ML ONE (14:23)
[2018-09-13 14:35] LABS: Urine Blood NEGATIVE (NEG); Urine Glucose NEGATIVE (NEG); Urine Protein NEGATIVE (NEG); Urine Specific Gravity 1.015 (1.005-1.030); Urine pH 8.5 (5.0-7.0)
--- NOTE | 2018-09-13 18:33 | ER ---
Nurse's Notes [facility] Name: Jojo Aragon Age: 67 yrs Sex: Female : 1950 Arrival Date: 09/13/2018 Time: 12:34 Bed 6 Private MD: Diagnosis: Benign paroxysmal vertigo Presentation: 09/13 12:34 Presenting complaint: EMS states: 3 DAYS OF DIZZY SPELLS. Transition of care: patient bp was not received from another setting of care. Onset of symptoms is unknown. Risk Assessment: Do you want to hurt yourself or someone else? Patient reports no desire to harm self or others. Initial Sepsis Screen: Does the patient meet any 2 criteria? No. Patient's initial sepsis screen is negative. Does the patient have a suspected source of infection? No. Patient's initial sepsis screen is negative. Care prior to arrival: IV initiated. 20 GA, in the right antecubital area. 12:34 Method Of Arrival: EMS: [facility] bp 12:34 Acuity: WOODY 2 bp Triage Assessment: 12:41 General: Appears in no apparent distress. comfortable, obese, Behavior is cooperative, bp appropriate for age, anxious. GI: Reports nausea. Historical: - Allergies: 12:41 Demerol; bp 12:41 Codeine; bp - PMHx: 12:41 COPD; Hypertension; bp - Immunization history:: Adult Immunizations. - Social history:: Smoking status: Patient/guardian denies using tobacco. - Ebola Screening: : No symptoms or risks identified at this time. Screenin:00 Abuse screen: Denies threats or abuse. Denies injuries from another. Nutritional bp screening: No deficits noted. Tuberculosis screening: No symptoms or risk factors identified. Fall Risk None identified. Assessment: 12:45 General: SEE TRIAGE NOTE. bp 14:00 Reassessment: IVF INFUSING, ALL CURRENT ORDERS COMPLETED. bp 16:19 Reassessment: PT D/C HOME AMBULATORY WITH FAMILY, DX WITH DIZZINESS. bp Vital Signs: 12:41 BP 160 / 74; Pulse 71; Resp 14; Temp 98; Pulse Ox 96% ; Weight 90.26 kg; Height 5 ft. 3 bp in. (160.02 cm); 13:26 BP 132 / 74 Supine; Pulse 57; em1 13:29 BP 114 / 79 Sitting; Pulse 62; em1 13:31 BP 118 / 87 Standing; Pulse 74; em1 14:00 BP 143 / 76; Pulse 62; Resp 16; Pulse Ox 96% ; bp 16:00 BP 132 / 66; Pulse 52; Resp 16; Temp 98; Pulse Ox 99% ; bp 12:41 Body Mass Index 35.25 (90.26 kg, 160.02 cm) bp ED Course: 12:34 Patient arrived in ED. bp 12:35 Tray Martínez NP is PHCP. pm1 12:35 Mark Camacho MD is Attending Physician. pm1 12:38 Triage completed. bp 12:41 Arm band placed on. bp 13:00 Patient has correct armband on for positive identification. Bed in low position. Call bp light in reach. Side rails up X2. Adult w/ patient. 13:06 Wiliam Anne, FRED is Primary Nurse. bp 13:16 CT Head Brain wo Cont In Process Unspecified. EDMS 13:19 EKG done, by operating room technician. reviewed by Tray Martínez NP. sm3 13:34 X-ray completed. Portable x-ray completed in exam room. jb2 13:35 XRAY Chest (1 view) In Process Unspecified. EDMS 16:00 No provider procedures requiring assistance completed. IV discontinued, intact, bp bleeding controlled, No redness/swelling at site. Pressure dressing applied. Administered Medications: 13:00 Drug: Meclizine 12.5 mg Route: PO; bp 14:26 Follow up: Response: No adverse reaction bp 13:45 Drug: NS 0.9% 1000 ml Route: IV; Rate: 1000 ml; Site: right antecubital; bp 16:21 Follow up: IV Status: Completed infusion; IV Intake: 1000ml bp Point of Care Testing: Blood Glucose: 12:41 Blood Glucose: 169 mg/dL; bp Ranges: Intake: 16:21 IV: 1000ml; Total: 1000ml. bp Outcome: 15:45 Discharge ordered by . pm1 16:00 Discharged to home ambulatory, with family. bp 16:00 Condition: stable 16:00 Discharge instructions given to patient, Instructed on discharge instructions, follow up and referral plans. medication usage, Demonstrated understanding of instructions, follow-up care, medications, Prescriptions given X 1. 16:22 Patient left the ED. bp Signatures: Dispatcher [employer] EDMS Buechter, Alonso jbOlvin Carrasco em1 Tray Martínez, LEAN MANUFACTURING LEADER LEAN MANUFACTURING LEADER pm1 Wiliam Anne, RN RN bp Tangela San sm3
--- NOTE | 2018-09-13 18:39 | EDPHYS ---
Physician Documentation [facility] Name: Jojo Aragon Age: 67 yrs Sex: Female : 1950 Arrival Date: 09/13/2018 Time: 12:34 Bed 6 Private MD: ED Physician Mark Camacho HPI: 09/13 12:49 This 67 yrs old Female presents to ER via EMS with complaints of Dizziness. pm1 12:49 The patient presents with dizziness. Onset: The symptoms/episode began/occurred 3 pm1 day(s) ago. Context: occurred at home, just prior to the episode the patient experienced no apparent symptoms. Modifying factors: The symptoms are alleviated by nothing, the symptoms are aggravated by changing position. Associated signs and symptoms: Pertinent negatives: chest pain, shortness of breath. Severity of symptoms: in the emergency department the symptoms are unchanged Pain is currently a 0 / 10. The patient has not experienced similar symptoms in the past. The patient has been recently seen by a physician: diagnosis with left kidney cancer from a biopsy 1 week ago. Historical: - Allergies: 12:41 Demerol; bp 12:41 Codeine; bp - PMHx: 12:41 COPD; Hypertension; bp - Immunization history:: Adult Immunizations. - Social history:: Smoking status: Patient/guardian denies using tobacco. - Ebola Screening: : No symptoms or risks identified at this time. ROS: 12:49 Constitutional: Negative for fever, chills, and weight loss, Eyes: Negative for injury, pm1 pain, redness, and discharge, ENT: Negative for injury, pain, and discharge, Neck: Negative for injury, pain, and swelling, Cardiovascular: Negative for chest pain, palpitations, and edema, Respiratory: Negative for shortness of breath, cough, wheezing, and pleuritic chest pain, Abdomen/GI: Negative for abdominal pain, nausea, vomiting, diarrhea, and constipation, Back: Negative for injury and pain, : Negative for injury, bleeding, discharge, and swelling, MS/Extremity: Negative for injury and deformity, Skin: Negative for injury, rash, and discoloration. 12:49 Neuro: Positive for dizziness, Negative for headache, numbness, seizure activity, tingling. Exam: 12:49 Constitutional: This is a well developed, well nourished patient who is awake, alert, pm1 and in no acute distress. Head/Face: Normocephalic, atraumatic. ENT: Nares patent. No nasal discharge, no septal abnormalities noted. Tympanic membranes are normal and external auditory canals are clear. Oropharynx with no redness, swelling, or masses, exudates, or evidence of obstruction, uvula midline. Mucous membranes moist. 12:49 Neck: Trachea midline, no thyromegaly or masses palpated, and no cervical lymphadenopathy. Supple, full range of motion without nuchal rigidity, or vertebral point tenderness. No Meningismus. Chest/axilla: Normal chest wall appearance and motion. Nontender with no deformity. No lesions are appreciated. Cardiovascular: Regular rate and rhythm with a normal S1 and S2. No gallops, murmurs, or rubs. Normal PMI, no JVD. No pulse deficits. Respiratory: Lungs have equal breath sounds bilaterally, clear to auscultation and percussion. No rales, rhonchi or wheezes noted. No increased work of breathing, no retractions or nasal flaring. Abdomen/GI: Soft, non-tender, with normal bowel sounds. No distension or tympany. No guarding or rebound. No evidence of tenderness throughout. Back: No spinal tenderness. No costovertebral tenderness. Full range of motion. Skin: Warm, dry with normal turgor. Normal color with no rashes, no lesions, and no evidence of cellulitis. 12:49 Eyes: Nystagmus: vestibular nystagmus. 12:49 Musculoskeletal/extremity: Extremities: all appear grossly normal, with no appreciated pain with palpation, ROM: intact in all extremities, Sensation intact. 12:49 Neuro: Orientation: is normal, Mentation: is normal, Memory: is normal, Cranial nerves: CN II- XII are normal as tested, Cerebellar function: normal finger to nose testing, heel to lacey testing is normal, Motor: moves all fours, Sensation: is normal, no obvious gross deficits. Vital Signs: 12:41 BP 160 / 74; Pulse 71; Resp 14; Temp 98; Pulse Ox 96% ; Weight 90.26 kg; Height 5 ft. 3 bp in. (160.02 cm); 13:26 BP 132 / 74 Supine; Pulse 57; em1 13:29 BP 114 / 79 Sitting; Pulse 62; em1 13:31 BP 118 / 87 Standing; Pulse 74; em1 14:00 BP 143 / 76; Pulse 62; Resp 16; Pulse Ox 96% ; bp 16:00 BP 132 / 66; Pulse 52; Resp 16; Temp 98; Pulse Ox 99% ; bp 12:41 Body Mass Index 35.25 (90.26 kg, 160.02 cm) bp MDM: 12:36 Patient medically screened. pm1 15:43 Data reviewed: vital signs. Data interpreted: Pulse oximetry: on room air is 96 %. pm1 Interpretation: normal. Counseling: I had a detailed discussion with the patient and/or guardian regarding: the historical points, exam findings, and any diagnostic results supporting the discharge/admit diagnosis, lab results, radiology results, the need for outpatient follow up, to return to the emergency department if symptoms worsen or persist or if there are any questions or concerns that arise at home. 09/13 12:49 Order name: Basic Metabolic Panel; Complete Time: 13:58 pm09/13 12:49 Order name: CBC with Diff pm09/13 12:49 Order name: LFT's; Complete Time: 13:58 pm09/13 12:49 Order name: Magnesium; Complete Time: 13:58 pm09/13 12:49 Order name: NT PRO-BNP; Complete Time: 13:58 pm09/13 12:49 Order name: PT-INR; Complete Time: 13:39 pm09/13 12:49 Order name: Troponin (emerg Dept Use Only); Complete Time: 13:58 pm09/13 12:49 Order name: XRAY Chest (1 view); Complete Time: 13:58 pm09/13 12:49 Order name: EKG; Complete Time: 12:51 pm09/13 12:49 Order name: Cardiac monitoring; Complete Time: 15:44 pm09/13 12:49 Order name: CT Head Brain wo Cont; Complete Time: 13:58 pm09/13 14:31 Order name: Urine Dipstick--Ancillary (enter results); Complete Time: 15:10 em1 09/13 12:49 Order name: EKG - Nurse/Tech; Complete Time: 13:13 pm09/13 12:49 Order name: IV Saline Lock; Complete Time: 13:14 pm09/13 12:49 Order name: Labs collected and sent; Complete Time: 13:14 pm1 09/13 12:49 Order name: O2 Per Protocol; Complete Time: 13:36 pm1 09/13 12:49 Order name: O2 Sat Monitoring; Complete Time: 13:36 pm1 09/13 12:50 Order name: Orthostatic Blood Pressure; Complete Time: 13:36 pm1 09/13 14:04 Order name: Urine Dipstick-Ancillary (obtain specimen); Complete Time: 14:14 pm1 Administered Medications: 13:00 Drug: Meclizine 12.5 mg Route: PO; bp 14:26 Follow up: Response: No adverse reaction bp 13:45 Drug: NS 0.9% 1000 ml Route: IV; Rate: 1000 ml; Site: right antecubital; bp 16:21 Follow up: IV Status: Completed infusion; IV Intake: 1000ml bp Point of Care Testing: Blood Glucose: 12:41 Blood Glucose: 169 mg/dL; bp Ranges: Critical Glucose Levels:Adult <50 mg/dl or >400 mg/dl <40 mg/dl or >180 mg/dl Disposition: 09/14 05:55 Co-signature as Attending Physician, Mark Camacho MD I agree with the assessment and kdr plan of care. Disposition: 09/13/18 15:45 Discharged to Home. Impression: Benign paroxysmal vertigo. - Condition is Stable. - Discharge Instructions: Benign Positional Vertigo. - Prescriptions for Meclizine 25 mg Oral Tablet - take 1 tablet by ORAL route every 8 hours As needed; 30 tablet. - Medication Reconciliation Form, Thank You Letter, Antibiotic Education, Prescription Opioid Use form. - Follow up: Emergency Department; When: As needed; Reason: Worsening of condition. Follow up: Private Physician; When: 2 - 3 days; Reason: Recheck today's complaints, Continuance of care, Re-evaluation by your physician. - Problem is new. - Symptoms have improved. Signatures: Dispatcher [employer] EDMS Mark Camacho MD MD kdr Marinas, Patrick, POLITICAL ANALYST POLITICAL ANALYST pm1 Wiliam Anne RN RN bp Corrections: (The following items were deleted from the chart) 09/13 16:22 15:45 09/13/2018 15:45 Discharged to Home. Impression: Benign paroxysmal vertigo. bp Condition is Stable. Forms are Medication Reconciliation Form, Thank You Letter, Antibiotic Education, Prescription Opioid Use. Follow up: Emergency Department; When: As needed; Reason: Worsening of condition. Follow up: Private Physician; When: 2 - 3 days; Reason: Recheck today's complaints, Continuance of care, Re-evaluation by your physician. Problem is new. Symptoms have improved. pm1
--- NOTE | 2018-09-13 18:40 | EKG ---
Test Date: 2018-09-13 Test Time: 13:04:44 Hydroelectric Component Machinist: ALEE MEASUREMENT RESULTS: Intervals: Rate: 58 LA: 154 QRSD: 74 QT: 428 QTc: 420 [place]: P: 46 LA: 154 QRS: 29 T: 54 INTERPRETIVE STATEMENTS: Sinus bradycardia Otherwise normal ECG No previous ECG available for comparison Electronically Signed On 09-13-18 18:38:54 CDT by Jose Bingham
== END 2018-09-13 16:22 | disposition home or self-care (01) ==
LOC: ER 12:32
DX: H81.10 Benign paroxysmal vertigo, unspecified ear (principal); I10 Essential (primary) hypertension; J44.9 Chronic obstructive pulmonary disease, unspecified; Z88.5 Allergy status to narcotic agent
CPT/HCPCS: 96361; 93005; 85025; 80048; 36415; 83735; 85610; 80076; 81003; 84484; 83880; 70450; 71045; 96360; 99284; J7030

== ENCOUNTER 2019-04-14 08:03 | Emergency (ER) | payer OTHER ==
[2019-04-14 09:34] LABS: Urine Blood NEGATIVE (NEG); Urine Glucose NEGATIVE (NEG); Urine Protein NEGATIVE (NEG); Urine pH 7.5 (5.0-7.0)
[2019-04-14] MEDS ORDERED: MORPHINE 4 MG/ML SYR ONE (09:48)
[2019-04-14] MEDS ORDERED: NA CHLORIDE 0.9% 1,000 ML ONE (09:49)
[2019-04-14] MEDS ORDERED: ONDANSETRON 4 MG/2 ML VIAL ONE (09:49)
[2019-04-14 09:55] LABS: Urine Bacteria <20 /HPF (<20); Urine RBC NONE SEEN /HPF (NONE SEEN)
[2019-04-14 09:58] LABS: Absolute Lymphocytes (CBC) 1.6 K/uL (0.7-4.9); Basophils % 0.4 % (0-1.3); Hematocrit 34.9 % (36.0-45.0); Lymphocytes % 36.8 % (15.3-44.8); MPV 10.3 fL (7.6-11.3); RBC Red Blood Cell Count 3.96 M/uL (3.86-4.86)
[2019-04-14 10:10] LABS: ALT/SGPT 28 U/L (12-78); AST/SGOT 20 U/L (15-37); Albumin 3.1 g/dL (3.4-5.0); Alkaline Phosphatase 131 U/L (45-117); BUN Blood Urea Nitrogen 11 mg/dL (7-18); Bicarbonate 33 mmol/L (21-32); Bilirubin Direct 0.1 mg/dL (0-0.2); Bilirubin Total 0.3 mg/dL (0.2-1.0); Glucose Level 89 mg/dL (74-106); Lipase 57 U/L (73-393); Potassium 4.3 mmol/L (3.5-5.1); Sodium Level 143 mmol/L (136-145)
--- NOTE | 2019-04-14 10:53 | RAD REPORT ---
EXAM DESCRIPTION: CT - Abdomen Pelvis W Contrast - 04/14/2019 10:37 am CLINICAL HISTORY: ABD PAIN, urinary bladder pain, dysuria, prior hysterectomy, cholecystectomy, karyn javier bypass and hernia repair COMPARISON: No comparisons TECHNIQUE: Biphasic, helical CT imaging of the abdomen and pelvis was performed following 100 ml non -ionic IV contrast. Axial 5 millimeter images were obtained as a 5-10 minute delay acquisition. No oral contrast was given. All CT scans are performed using dose optimization technique as appropriate and may include automated exposure control or mA/KV adjustment according to patient size. FINDINGS: No suspicious findings in the lung bases. Liver, spleen and pancreas are normal size with no emergent findings. In the inferior most aspect of the right lobe a 4.5 centimeter oval low-density mass is present. On arterial phase imaging discontin uous nodular enhancement is present along the rim. This is progressive on the venous phase imaging an d delayed imaging. The mass does not fully fill in. The mass becomes partially isodense on the 5 joshua stephania delayed imaging. Gallbladder is absent. Biliary tree is prominent but not outside of normal range for a post cholecystectomy patient. No hydronephrosis or obstructing calculus. Lateral left kidney shows a 2 centimeter area of slightly increased enhancement on arterial phase imaging. There is a small cyst lateral mid right kidney. On v enous phase imaging the lateral left kidney findings more heterogeneous but generally hypodense relat adán to the enhancing parenchyma. On delayed imaging mass remains mostly hypodense. No urinary bladder wall thickening, mass or enhancement. No bladder calculus. Uterus is absent. Ovaries are absent or a trophic. No adrenal abnormalities. No gastric dilatation or wall thickening. No dilated small bowel loops. No appendicitis findings. Mod erate stool volume fills but does not dilate the colon. No free air, free fluid or inflammatory stranding. No mass or bulky lymphadenopathy. Postsurgical changes are noted the anterior abdominal wall with no suspicious finding. No acute bone finding suspected T10-T12 show varying degrees of wedge compression deformity. No acute symptoms were detailed in these are likely chronic compression fractures. . IMPRESSION: A 2 centimeter area of heterogeneous enhancing parenchyma in the lateral left mid kidney is present. This is potentially an area of pyelonephritis if the patient has matching clinical or la boratory findings. Mass lesion of the kidney is considered less likely but does warrant ongoing monit oring. Repeat CT imaging in 4-6 weeks could be performed to allow all clearing of any infectious process. No urinary bladder abnormality. No hydronephrosis. No acute GI process seen. Patient has moderately large stool volume filling but not dilating the enti re colon. Approximately 4.5 centimeter enhancing mass of the right lobe liver. This is most likely an incidenta l hemangioma. This could also be re-evaluated at the time of the follow-up CT study.
--- NOTE | 2019-04-14 11:02 | EDPHYS ---
Physician Documentation [facility] Name: Jojo Aragon Age: 68 yrs Sex: Female : 1950 Arrival Date: 04/14/2019 Time: 08:06 Bed 5 Private MD: ED Physician Vernon Duke HPI: 04/14 10:59 This 68 yrs old Female presents to ER via Ambulatory with complaints of ma2 Abdominal Pain. 10:59 The patient presents with abdominal pain in the upper abdomen. The symptoms do not ma2 radiate. Associated signs and symptoms: Pertinent negatives:. Severity of pain: At its worst the pain was very mild mild in the emergency department the pain is unchanged has resolved. The patient has experienced similar episodes in the past. Historical: - Allergies: 08:18 Demerol; iw 08:18 Codeine; iw 08:18 Bactrim; iw - Home Meds: 08:18 Lasix 20 mg Oral tab 1 tab once daily [Active]; [place] Thyroid 60 mg Oral tab [Active]; iw inhaler [Active]; tramadol 50 mg Oral tab [Active]; candesartan 4 mg oral tab 1 tab once daily [Active]; - PMHx: 08:18 COPD; Hypertension; Fibromyalgia; iw - PSHx: 08:18 Hysterectomy; Cholecystectomy; Tonsillectomy; Hernia repair; Gastric Bypass; iw - Immunization history:: Adult Immunizations not up to date. - Social history:: Smoking status: Patient denies any tobacco usage or history of. Patient/guardian denies using alcohol, street drugs, The patient lives with family, with spouse. - Ebola Screening: : Patient negative for fever greater than or equal to 101.5 degrees Fahrenheit, and additional compatible Ebola Virus Disease symptoms Patient denies exposure to infectious person Patient denies travel to an Ebola-affected area in the 21 days before illness onset No symptoms or risks identified at this time. - Family history:: not pertinent. ROS: 10:59 Constitutional: Negative for fever, chills, and weight loss, Eyes: Negative for injury, ma2 pain, redness, and discharge. 10:59 All other systems are negative. Exam: 10:59 Constitutional: This is a well developed, well nourished patient who is awake, alert, ma2 and in no acute distress. Chest/axilla: Normal chest wall appearance and motion. Nontender with no deformity. No lesions are appreciated. Cardiovascular: Regular rate and rhythm with a normal S1 and S2. No gallops, murmurs, or rubs. Normal PMI, no JVD. No pulse deficits. Respiratory: Lungs have equal breath sounds bilaterally, clear to auscultation and percussion. No rales, rhonchi or wheezes noted. No increased work of breathing, no retractions or nasal flaring. Abdomen/GI: Soft, non-tender, with normal bowel sounds. No distension or tympany. No guarding or rebound. No evidence of tenderness throughout. MS/ Extremity: Pulses equal, no cyanosis. Neurovascular intact. Full, normal range of motion. Neuro: Awake and alert, GCS 15, oriented to person, place, time, and situation. Cranial nerves II-XII grossly intact. Motor strength 5/5 in all extremities. Sensory grossly intact. Cerebellar exam normal. Normal gait. Vital Signs: 08:18 BP 166 / 81; Pulse 51; Resp 16; Temp 97.9; Pulse Ox 100% on R/A; Weight 81.65 kg; iw Height 5 ft. 3 in. (160.02 cm); Pain 6/10; 09:45 BP 166 / 65; Pulse 50; Resp 18 S; Pulse Ox 100% on R/A; Pain 6/10; aa5 10:10 BP 154 / 70; Pulse 55; Resp 15; Pulse Ox 100% on R/A; hb 11:00 BP 148 / 68; Pulse 54; Resp 16; Pulse Ox 99% on R/A; hb 08:18 Body Mass Index 31.89 (81.65 kg, 160.02 cm) iw MDM: 08:46 Patient medically screened. ma2 10:59 Differential diagnosis: gastritis, Ureterolithiasis, urinary tract infection. Data ma2 reviewed: vital signs, nurses notes. Counseling: I had a detailed discussion with the patient and/or guardian regarding: the historical points, exam findings, and any diagnostic results supporting the discharge/admit diagnosis, the presence of at least one elevated blood pressure reading (>120/80) during this emergency department visit, the need for outpatient follow up, does has renal renal ssc, being treated she does not have pyelonephritis at this time. . 04/14 08:43 Order name: Urine Dipstick--Ancillary (enter results); Complete Time: 10:56 04/14 09:30 Order name: Basic Metabolic Panel; Complete Time: 10:56 [facility] 04/14 09:30 Order name: CBC with Diff; Complete Time: 10:56 [facility] 04/14 09:30 Order name: Creatinine for Radiology; Complete Time: 10:56 [facility] 04/14 09:30 Order name: Hepatic Function; Complete Time: 10:56 [facility] 04/14 09:30 Order name: Lipase; Complete Time: 10:56 [facility] 04/14 08:45 Order name: Urine Dipstick-Ancillary (obtain specimen); Complete Time: 08:57 [facility] 04/14 09:30 Interpretation: Abnormal. [facility] 04/14 09:30 Order name: IV Saline Lock; Complete Time: 09:43 [facility] 04/14 09:30 Order name: CT Abd/Pelvis - IV Contrast Only; Complete Time: 10:56 [facility] 04/14 09:30 Order name: Urine Microscopic Only; Complete Time: 10:56 04/14 09:30 Order name: Labs collected and sent; Complete Time: 09:43 ma Administered Medications: 09:43 CANCELLED (Physician Discretion): Zofran 4 mg PO once aa5 09:45 Drug: NS 0.9% 1000 ml Route: IV; Rate: 1 bolus; Site: right antecubital; aa5 10:50 Follow up: Response: No adverse reaction; IV Status: Completed infusion; IV Intake: hb 1000ml 09:45 Drug: Zofran 4 mg Route: IVP; Site: right antecubital; aa5 10:11 Follow up: Response: No adverse reaction hb 09:47 Drug: morphine 4 mg Route: IVP; Site: right antecubital; aa5 10:11 Follow up: Response: No adverse reaction hb Disposition: 04/14/19 11:01 Discharged to Home. Impression: Lower abdominal pain, unspecified. - Condition is Stable. - Discharge Instructions: Abdominal Pain, Adult. - Medication Reconciliation Form, Thank You Letter, Antibiotic Education, Prescription Opioid Use form. - Follow up: Private Physician; When: Tomorrow; Reason: Continuance of care. Signatures: [facility] Eri Laughlin RN RN Nargis Ingram RN RN aa5 Annie Mccormack RN RN hb Vernon Duke MD MD ma2 Corrections: (The following items were deleted from the chart) 09:43 08:45 Zofran 4 mg PO once ordered. ma2 aa5 11:33 11:01 04/14/2019 11:01 Discharged to Home. Impression: Lower abdominal pain, hb unspecified. Condition is Stable. Forms are Medication Reconciliation Form, Thank You Letter, Antibiotic Education, Prescription Opioid Use. Follow up: Private Physician; When: Tomorrow; Reason: Continuance of care. ma2
--- NOTE | 2019-04-14 11:02 | ER ---
Nurse's Notes [facility] Name: Jojo Aragon Age: 68 yrs Sex: Female : 1950 Arrival Date: 04/14/2019 Time: 08:06 Bed 5 Private MD: Diagnosis: Lower abdominal pain, unspecified Presentation: 04/14 08:15 Presenting complaint: Patient states: bladder pain X 1 week, was supposed to be seen by iw a urologist Monday, also has pain with urination and back pain. Transition of care: patient was not received from another setting of care. Onset of symptoms was April 06, 2019. Risk Assessment: Do you want to hurt yourself or someone else? Patient reports no desire to harm self or others. Initial Sepsis Screen: Does the patient meet any 2 criteria? No. Patient's initial sepsis screen is negative. Does the patient have a suspected source of infection? No. Patient's initial sepsis screen is negative. Care prior to arrival: None. 08:15 Method Of Arrival: Ambulatory iw 08:15 Acuity: WOODY 4 iw 10:42 Acuity: WOODY 3 iw Historical: - Allergies: 08:18 Demerol; iw 08:18 Codeine; iw 08:18 Bactrim; iw - Home Meds: 08:18 Lasix 20 mg Oral tab 1 tab once daily [Active]; [place] Thyroid 60 mg Oral tab [Active]; iw inhaler [Active]; tramadol 50 mg Oral tab [Active]; candesartan 4 mg oral tab 1 tab once daily [Active]; - PMHx: 08:18 COPD; Hypertension; Fibromyalgia; iw - PSHx: 08:18 Hysterectomy; Cholecystectomy; Tonsillectomy; Hernia repair; Gastric Bypass; iw - Immunization history:: Adult Immunizations not up to date. - Social history:: Smoking status: Patient denies any tobacco usage or history of. Patient/guardian denies using alcohol, street drugs, The patient lives with family, with spouse. - Ebola Screening: : Patient negative for fever greater than or equal to 101.5 degrees Fahrenheit, and additional compatible Ebola Virus Disease symptoms Patient denies exposure to infectious person Patient denies travel to an Ebola-affected area in the 21 days before illness onset No symptoms or risks identified at this time. - Family history:: not pertinent. Screenin:36 Abuse screen: Denies threats or abuse. Denies injuries from another. Nutritional hb screening: No deficits noted. Tuberculosis screening: No symptoms or risk factors identified. Fall Risk None identified. Assessment: 08:36 General: Appears in no apparent distress. Behavior is calm, cooperative. Pain: Pain hb currently is 6 out of 10 on a pain scale. Neuro: Level of Consciousness is awake, alert, obeys commands, Oriented to person, place, time, situation. Cardiovascular: Capillary refill < 3 seconds Patient's skin is warm and dry. Respiratory: Airway is patent Respiratory effort is even, unlabored, Respiratory pattern is regular, symmetrical. GI: No signs and/or symptoms were reported involving the gastrointestinal system. : Reports suprapubic pain. EENT: No signs and/or symptoms were reported regarding the EENT system. Derm: Skin is pink, warm \T\ dry. Musculoskeletal: No signs and/or symptoms reported regarding the musculoskeletal system. 09:30 Reassessment: Patient appears in no apparent distress at this time. Patient and/or hb family updated on plan of care and expected duration. Pain level reassessed. Patient is alert, oriented x 3, equal unlabored respirations, skin warm/dry/pink. 10:11 Reassessment: Patient appears in no apparent distress at this time. Patient and/or hb family updated on plan of care and expected duration. Pain level reassessed. Patient is alert, oriented x 3, equal unlabored respirations, skin warm/dry/pink. 11:00 Reassessment: Patient appears in no apparent distress at this time. Patient and/or hb family updated on plan of care and expected duration. Pain level reassessed. Patient is alert, oriented x 3, equal unlabored respirations, skin warm/dry/pink. Vital Signs: 08:18 BP 166 / 81; Pulse 51; Resp 16; Temp 97.9; Pulse Ox 100% on R/A; Weight 81.65 kg; iw Height 5 ft. 3 in. (160.02 cm); Pain 6/10; 09:45 BP 166 / 65; Pulse 50; Resp 18 S; Pulse Ox 100% on R/A; Pain 6/10; aa5 10:10 BP 154 / 70; Pulse 55; Resp 15; Pulse Ox 100% on R/A; hb 11:00 BP 148 / 68; Pulse 54; Resp 16; Pulse Ox 99% on R/A; hb 08:18 Body Mass Index 31.89 (81.65 kg, 160.02 cm) iw ED Course: 08:06 Patient arrived in ED. rg4 08:16 Triage completed. iw 08:18 Arm band placed on. iw 08:36 Patient has correct armband on for positive identification. Call light in reach. Side hb rails up X 1. 08:43 Vernon Duke MD is Attending Physician. ma2 08:44 Annie Mccormack, RN is Primary Nurse. hb 08:57 Urine collected: clean catch specimen, clear, zackery colored. jb1 09:37 Radiology exam delayed due to lab results not completed at this time. (BUN/Creatinine). mw3 09:40 Initial lab(s) drawn, by me, sent to lab. Inserted saline lock: 20 gauge in right aa5 antecubital area, using aseptic technique. Blood collected. 10:37 CT Abd/Pelvis - IV Contrast Only In Process Unspecified. EDMS 10:53 CT completed. Patient tolerated procedure well. Patient moved back from CT. bq 11:24 No provider procedures requiring assistance completed. IV discontinued, intact, hb bleeding controlled, No redness/swelling at site. Pressure dressing applied. Administered Medications: 09:43 CANCELLED (Physician Discretion): Zofran 4 mg PO once aa5 09:45 Drug: NS 0.9% 1000 ml Route: IV; Rate: 1 bolus; Site: right antecubital; aa5 10:50 Follow up: Response: No adverse reaction; IV Status: Completed infusion; IV Intake: hb 1000ml 09:45 Drug: Zofran 4 mg Route: IVP; Site: right antecubital; aa5 10:11 Follow up: Response: No adverse reaction hb 09:47 Drug: morphine 4 mg Route: IVP; Site: right antecubital; aa5 10:11 Follow up: Response: No adverse reaction hb Intake: 10:50 IV: 1000ml; Total: 1000ml. hb Outcome: 11:01 Discharge ordered by . ma2 11:24 Discharged to home ambulatory, with family. hb 11:24 Condition: stable 11:24 Discharge instructions given to patient, Instructed on discharge instructions, follow up and referral plans. medication usage, Demonstrated understanding of instructions, follow-up care, medications. 11:33 Patient left the ED. hb Signatures: Dispatcher [employer] EDOliverio Hinojosa jb1 Genna Frias Irene, RN RN iw Calderon, Audri, RN RN aa5 Annie Mccormack RN RN hb Garcia, Rubi 4 Vernon Duke MD MD ma2 Gayla Lamb mw3
[2019-04-14 12:35] VITALS: TEMP 97.9
[2019-04-14 12:39] VITALS: BP 148/68; O2SAT 99
== END 2019-04-14 11:33 | disposition home or self-care (01) ==
LOC: ER 08:03
DX: R10.30 Lower abdominal pain, unspecified (principal); Z88.6 Allergy status to analgesic agent; Z88.1 Allergy status to other antibiotic agents; J44.9 Chronic obstructive pulmonary disease, unspecified; I10 Essential (primary) hypertension; M79.7 Fibromyalgia
CPT/HCPCS: 96361; 85025; 80048; 36415; 80076; 83690; 74177; 96375; 96374; 99284; Q9967; J7030; J2405; 81003; 81015

== ENCOUNTER 2019-08-19 10:21 | Emergency (ER) | payer OTHER ==
--- OUTSIDE RECORDS SUMMARY | 2019-08-19 10:23 | XMS REPORT | Clinical Summary ---
:1950 Author Organization [facility] Address [address] [place] [address] Care Team Providers Name Role Phone Jacqueline Pruitt MD Primary Care Provider Allergies Active Allergy Reactions Severity Noted Date Comments Sulfamethoxazole-Trime Hives, Itching High 11/28/2017 thoprim Codeine Itching High 11/28/2017 hallucinations Lactase 04/06/2018 Inflammation Meperidine Hives, Itching, High 11/28/2017 hallucinatio n Other (See Comments) Gluten 04/06/2018 Pressure / con stipation Esomeprazole Magnesium Itching High 12/21/2017 Other Food 04/19/2018 nutrasweet Proton Pump Inhibitors Itching 11/28/2017 patop razole and omeprazole Medications Medication Sig Dispensed Refills Start Date End Date Status albuterol (ACCUNEB) Take 1 ampule by 0 Active 1.25 mg/3 mL nebulization every 6 nebulizer solution (six) hours as needed for wheezing. albuterol (PROAIR Inhale 2 puffs every 0 Active HFA,PROVENTIL 6 (six) hours as HFA,VENTOLIN HFA) 90 needed for wheezing. mcg/actuation inhaler furosemide (LASIX) Take 20 mg by mouth 0 06/11/2018 Active 20 mg tablet daily. candesartan Take 8 mg by mouth 5 06/18/2018 Active (ATACAND) 8 MG daily. tablet traMADol (ULTRAM) 50 Take 50 mg by mouth 2 9 Active mg tablet 2 (two) times a day. ondansetron (ZOFRAN) Take 4 mg by mouth 2 07/05/2018 Active 4 MG tablet as needed. ZENAIDA THYROID 60 mg Take 60 mg by mouth 2 9 Active tablet daily. Active Problems Problem Noted Date Morbid (severe) obesity due to excess calories 019 Preop cardiovascular exam 04/11/2018 Hypothyroid 04/11/2018 COPD (chronic obstructive pulmonary disease) 9 Essential hypertension 04/11/2018 LVH (left ventricular hypertrophy) 04/11/2018 Nonrheumatic aortic valve insufficiency 04/11/2018 Encounters Date Type Specialty Care Team Description 07/23/2019 Documentation Weight Management Damaris Cano, FRED Bar iatric Follow Up e-mail 09/12/2018 Orders Only General Surgery Joselyn Lemon hypertension (Primary Dx); L, MA Morbid (severe) obesity due to excess calories (HCC); Hypothyroidism, unspecified type; Bariatric surge ry status; Intestinal zonia bsorption, unspecified type; Weight loss; Vitamin deficie ncy 09/05/2018 Hospital Encounter Radiology Clarence Garcia MD uncertain behav ior of left kidney 08/31/2018 Hospital Encounter Radiology Clarence Garcia MD 08/31/2018 Hospital Encounter Radiology Clarence Garcia MD 08/28/2018 Transcribe Orders Radiology Clarence Garcia MD uncertain behav ior of left kidney (Primary Dx) after 08/18/2018 Family History Medical History Relation Name Comments [...] Vital Signs Vital Sign Reading Time Taken Comments Blood Pressure 136/64 09/05/2018 1:00 PM CDT [...] 09/05/2018 8:43 AM CDT Plan of Treatment Health Maintenance Due Date Last Done Comments BREAST CANCER SCREENING 2002 COLONOSCOPY SCREENING 2002 SHINGLES VACCINES (#1) 2002 65+ PNEUMOCOCCAL VACCINE (1 of 2 - PCV13) 2017 INFLUENZA VACCINE 10/26/2019 Implants Implanted Type Area Printer Slotter Operator Device Shelf Model / Identifier Expiration Serial / Date Lot Reprocessed Ethicon Endo 45cm Ultracisio n Harmonic Connor Curved Lamberto, With Advanced Hemostasis Cautery / N/A: SEBASTIÁN 11/15/2020 [id number] / Implanted: Qty: 1 on 04/18/2018 by Jose Hill MD at [facility] Electrosurgery N/A SUSTAINABILITY / SOLUTIONS [id number] (FORMERLY ASCENT) Drain Wnd Chnl 19fr n Rnd Hbls Fl-Flut W/ n Tr ocar - [id number] Surgical N/A: ETHICON DIV OF 2231 / Implanted: Qty: 1 on 04/18/2018 by Jose Hill MD at [facility] Implants; N/A AMBER & / Expanders; AMBER Extenders; Surgical Wires Procedures Procedure Name Priority Date/Time Associated Comments Diagnosis US NEEDLE BIOPSY Routine 09/05/2018 10:57 Neoplasm of Results for this AM CDT uncertain behavior procedure are in of left kidney the results section. SURGICAL PATHOLOGY Routine 09/05/2018 10:43 Resul ts for this REQUEST AM CDT procedure are i n the results section. ESTIMATED GFR STAT 09/05/2018 8:29 Results fo r this AM CDT procedure are i n the results section. BASIC METABOLIC PANEL STAT 09/05/2018 8:29 Re sults for this AM CDT procedure are i n the results section. PARTIAL THROMBOPLASTIN STAT 09/05/2018 8:29 R esults for this TIME (PTT) AM CDT procedure are i n the results section. PROTHROMBIN TIME WITH STAT 09/05/2018 8:29 Re sults for this INR AM CDT procedure are i n the results section. HC COMPLETE BLD COUNT STAT 09/05/2018 8:29 Re sults for this W/AUTO DIFF AM CDT procedure are i n the results section. 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 Conscious sedation: After the risks and benefits of conscious sedation were discussed, midazolam and fentanyl were administer ed intravenously. Throughout the conscious sedation duration, the marlee ent was continuously monitored by a registered n urse. The physician intraservice [id number] time with the patient was 26 minutes. Technique: Alternative therapies and the procedure's risks and benefits were discussed with the patient. Written, i nformed consent was obtained. The targeted left renal lesion measuring approximately 2 cm in dimension was imaged sonographically. The sonographic appearan ce of the targeted lesion correlates without significant change with the CT and MR appearance of the lesion per the prior imaging. The overlying skin was prepared using routine, sterile technique. For anesthesia, 1% buffered lidocaine solution was injecte d into the involved skin. Using real-time sonographic guidance, routine technique, and an infracostal approach, three 18-gauge core biopsy samples, each measuring approximately 3.3 cm in length, were obtained using a BioPince needle. The samples obtain ed were reviewed by the attending pathologist and were deemed sufficien t for diagnostic evaluation. Estimated blood loss: Less than 1 cc. Complications: None. Specimens removed: As above. Assistants: None. IMPRESSION: Multiple 18-gauge core biopsy samples were obtained fr om the targeted 2 cm in dimension left renal lesion using real-time sono graphic guidance and without incident as described above. Thank you for allowing us to participate in the care of your patient. 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 Conscious sedation: After the risks and benefits of conscious sedation were discussed, midazolam and fentanyl were administered intravenously. Throughout the conscious sedation duration, the patient was continuously monitored by a registered nurse. The physician intraservice [id number] time with the patient was 26 minutes. Technique: Alternative therapies and th e procedure's risks and benefits were discussed with the patient. Written, informed consent was obtained. The targeted left renal lesion measuring approximately 2 cm in dimension was imaged sonographically. The sonographic appearance of the targeted lesion correlates without significant change with the CT and MR appearance of the lesion per the prior imaging. The overlying skin was prepared using ro utine, sterile technique. For anesthesia, 1% buffered lidocaine solution was injected into the involved skin. Using real-time sonographic guidance, routine technique, and an infracostal approach, three 18-gauge core biopsy samples, each measuring appr oximately 3.3 cm in length, were obtained using a BioPince needle. The samples obtained were reviewed by the attending pathologist and were deemed sufficient for diagnostic evaluation. Estimated blood loss: Less than 1 cc. Complications: None. Specimens removed: As above. Assistants: None. IMPRESSION: Multiple 18-gauge core biopsy samples we re obtained from the targeted 2 cm in dimension left renal lesion using real-time sonographic guidance and without incident as described above. Thank you for allowing us to participate in the care of your patient. [facility]-[id number] Performing Organization Address City/State/Zipcode Phone Number [facility] [address] [place] [address] Surgical pathology request (09/05/2018 10:43 AM CDT) [facility] DEPARTMENT OF PATHOLOGY AND GENOMIC MEDICINE Surgical pathology See link below [facility] DEPARTMENT OF report for PDF Lab PATHOLOGY AND Report GENOMIC MEDICINE Result status This is Final [facility] DEPARTMENT OF Report for PATHOLOGY AND [id number] GENOMIC MEDICINE Specimen Performing Organization Address [facility] Phone Number [facility] DEPARTMENT OF PATHOLOGY [id number] [place] [address] X [phone] AND [facility] Estimated GFR (09/05/2018 8:29 AM CDT) Pathologist [facility] Estimated GFR >=90 mL/min/1.73 HUMBERTO PADGETT Comment: m2 [facility] Catergory Units Interpretation HOS PITAL G1 >=90 Normal or high G2 60-89 Mildly decreased G3a 45-59 Mildly to moderately decreas ed G3b 30-44 Moderately to severely decre ased G4 15-29 Severely decreased G5 <15 Kidney failure The eGFR was calculated using the Chronic Kidney Disea se Epidemiology Collaboration (CKD-EPI) equation. Interpretation is based on recommendations of the National Kidney Foundation-Kidney Disease Outcomes Jayro lity Initiative (NKF-KDOQI) published in 2014. Specimen Plasma specimen Performing Organization Address [facility] Phone Number [facility] DEPARTMENT OF PATHOLOGY [id number] [place] [address] X [phone] [place] [address] HOSPITAL Partial thromboplastin time, activated (09/05/2018 8:29 AM CDT) Pathologist [facility] PTT 34.3 23.0 - 36.0 HUMBERTO PADGETT Comment: [facility] PTT therapeutic range for unfractionated heparin is HOSPITAL 61.0-112.0 seconds which corresponds to Anti-Xa 0.3-0.7 U/ml. Specimen Blood Performing Organization Address [facility] Phone Number [facility] DEPARTMENT OF PATHOLOGY [address] [place] [address] X [address] [place] [address] HOSPITAL Prothrombin time with INR (09/05/2018 8:29 AM CDT) Pathologist [facility] Prothrombin time 13.5 11.5 - 14.5 [facility] INR 1.1 [facility] Comment: LORIN WHITFIELD [facility] International Normalized Ratio (INR) is a therapeu [facility] HOSPITAL monitoring tool for patients who are stable on oral anticoagulant therapy. An INR of 2.0-3.0 is suggested for deep vein thrombosis/pulmonary embolism. Specimen Blood Performing Organization Address [facility] Phone Number [facility] DEPARTMENT OF PATHOLOGY [address] [facility] [place] [address] AND [facility] [id number] [place] [phone] [place] [address] CBC with platelet and differential (09/05/2018 8:29 AM CDT) WBC 5.5 4.5 - 11.0 k/uL [facility] RBC 4.24 4.20 - 5.50 [facility] m/uL [facility] HGB 11.7 (L) 12.0 - 16.0 [facility] g/dL [facility] HCT 37.6 37.0 - 47.0 % [facility] MCV 88.7 82.0 - 100.0 fL [facility] MCH 27.6 27.0 - 34.0 pg [facility] MCHC 31.1 31.0 - 37.0 [facility] g/dL [facility] RDW - SD 48.7 37.0 - 55.0 fL [facility] MPV 12.2 (H) 6.9 - 11.0 fL [facility] Platelet count 215 150 - 400 K/uL [facility] Nucleated RBC 0.00 /100 WBC [facility] Neutrophils 49.7 39.0 - 69.0 % [facility] Lymphocytes 41.2 25.0 - 45.0 % [facility] Monocytes 6.7 0.0 - 10.0 % [facility] Eosinophils 1.3 0.0 - 5.0 % [facility] Basophils 0.7 0.0 - 1.0 % [facility] Immature granulocytes 0.4 0.0 - 1.0 % [facility] Specimen Blood Performing Organization Address City/State/Zipcode Phone Number [facility] DEPARTMENT OF PATHOLOGY [address] [facility] [place] [address] AND [facility] [id number] [place] [phone] [place] [address] Basic metabolic panel (09/05/2018 8:29 AM CDT) Pathologist [facility] Sodium 142 135 - 148 mEq/L [facility] Potassium 4.4 3.5 - 5.0 mEq/L [facility] Chloride 104 98 - 112 mEq/L [facility] CO2 28 24 - 31 mEq/L [facility] Anion gap 10@ANIO 7 - 15 mEq/L [facility] BUN 15 8 - 23 mg/dL [facility] Creatinine 0.63 0.50 - 0.90 mg/dL [facility] Glucose 100 (H) 65 - 99 mg/dL [facility] Calcium 9.6 8.8 - 10.2 mg/dL [facility] Specimen Plasma specimen Performing Organization Address City/State/Zipcode Phone Number [facility] DEPARTMENT OF PATHOLOGY [address] [facility] [place] [address] AND GENOMIC MEDICINE [facility] [address] [facility] [place] [address] HOSPITAL after 08/18/2018 Ivette ([place]) [place] [address] Advance Directives For more information, please contact: [phone] Type Date Recorded 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
[2019-08-19 11:08] LABS: Urine Bacteria <20 /HPF (<20); Urine Culture Reflex Order NOT NEEDED; Urine RBC NONE SEEN /HPF (NONE SEEN)
[2019-08-19 11:39] LABS: Urine Blood NEGATIVE (NEG); Urine Glucose NEGATIVE (NEG); Urine Protein NEGATIVE (NEG); Urine pH 8.5 (5.0-7.0)
--- NOTE | 2019-08-19 11:42 | RAD REPORT ---
EXAM DESCRIPTION: Ruth Single View08/19/2019 11:21 am CLINICAL HISTORY: Chest pain COMPARISON: 2018 FINDINGS: The lungs appear clear of acute infiltrate. The heart is borderline enlarged IMPRESSION: No acute abnormalities displayed
[2019-08-19] MEDS ORDERED: METHYLPREDNISOLONE 125 MG INJ ONE (11:58)
[2019-08-19 12:17] VITALS: TEMP 98.8
[2019-08-19 12:20] VITALS: BP 118/52; O2SAT 97
--- NOTE | 2019-08-26 12:08 | ER ---
Nurse's Notes [facility] Name: Jojo Aragon Age: 68 yrs Sex: Female : 1950 Arrival Date: 08/19/2019 Time: 10:24 Bed 4 Private MD: Diagnosis: Fibromyalgia;Viral syndrome Presentation: 08/18 10:35 Chief complaint: Patient states: body aches, chills, headache, sore throat, lucy ear aa5 pressure, low back pain, and burning with urination. Pt reports SOB, states " I have COPD". 10:35 Coronavirus screen: Patient denies a cough. Patient reports shortness of breath or aa5 difficulty breathing. Patient denies measured and/or subjective temperature greater than 100.4F prior to today's visit. Patient denies travel on a cruise ship or to a country the [facility] currently lists as an affected area. Patient denies contact with known and/or suspected case of COVID-19. Ebola Screen: Patient negative for fever greater than or equal to 101.5 degrees Fahrenheit, and additional compatible Ebola Virus Disease symptoms. 10:35 Method Of Arrival: Ambulatory aa5 10:35 Acuity: WOODY 3 aa5 10:35 Onset of symptoms was July 2019. aa5 10:35 Initial Sepsis Screen: Does the patient meet any 2 criteria? No. Patient's initial aa5 sepsis screen is negative. Does the patient have a suspected source of infection? No. Patient's initial sepsis screen is negative. Risk Assessment: Do you want to hurt yourself or someone else? Patient reports no desire to harm self or others. Historical: - Allergies: 10:35 Bactrim; aa5 10:35 Codeine; aa5 10:35 Demerol; aa5 - PMHx: 10:35 COPD; Fibromyalgia; Hypertension; aa5 - PSHx: 10:35 Hysterectomy; Cholecystectomy; Tonsillectomy; Hernia repair; Gastric Bypass; aa5 - Immunization history:: Adult Immunizations unknown. - Social history:: Smoking status: Patient denies any tobacco usage or history of. - Family history:: not pertinent. - Hospitalizations: : No recent hospitalization is reported. Screenin:50 Abuse screen: Denies threats or abuse. Denies injuries from another. Nutritional ca1 screening: No deficits noted. Tuberculosis screening: No symptoms or risk factors identified. Fall Risk None identified. Assessment: 10:50 General: Appears in no apparent distress. comfortable, Behavior is calm, cooperative, ca1 appropriate for age. General: Reports chills for 2-3 days, feeling ill for. Pain: Complains of pain in low back area Pain radiates to suprapubic area Pain currently is 6 out of 10 on a pain scale. Pain began 2-3 days ago. Neuro: Level of Consciousness is awake, alert, obeys commands, Oriented to person, place, time, situation, Appropriate for age. Neuro: Reports headache. Cardiovascular: Heart tones S1 S2 present Capillary refill < 3 seconds Patient's skin is warm and dry. Respiratory: Airway is patent Respiratory effort is even, unlabored, Respiratory pattern is regular, symmetrical, Breath sounds are clear bilaterally. GI: Abdomen is round non-distended, Bowel sounds present X 4 quads. Abd is soft and non tender X 4 quads. : Reports burning with urination. EENT: Ear canal clear on left ear and right ear reports ear pain. Derm: Skin is intact, is healthy with good turgor, Skin is pink, warm \\T\\ dry. Musculoskeletal: Circulation, motion, and sensation intact. Capillary refill < 3 seconds. 11:48 Reassessment: Patient appears in no apparent distress at this time. Patient and/or ca1 family updated on plan of care and expected duration. Pain level reassessed. Patient is alert, oriented x 3, equal unlabored respirations, skin warm/dry/pink. Vital Signs: 10:35 BP 164 / 84; Pulse 67; Resp 16 S; Temp 98.8(O); Pulse Ox 100% on R/A; Weight 78.93 kg; aa5 Height 5 ft. 3 in. (160.02 cm) (R); Pain 4/10; 11:13 BP 124 / 60; Pulse 71; Resp 16 S; Pulse Ox 98% on R/A; ca1 11:48 BP 118 / 52; Pulse 57; Resp 16 S; Pulse Ox 97% on R/A; ca1 10:35 Body Mass Index 30.82 (78.93 kg, 160.02 cm) aa5 ED Course: 10:24 Patient arrived in ED. as 10:35 Arm band placed on Patient placed in an exam room, on a stretcher. aa5 10:36 Aubrey Jones MD is Attending Physician. rn 10:38 Heath Arellano, RN is Primary Nurse. jl7 10:48 Triage completed. aa5 10:50 Patient has correct armband on for positive identification. Bed in low position. Call ca1 light in reach. Side rails up X 1. Pulse ox on. NIBP on. 10:50 No provider procedures requiring assistance completed. Flu and/or RSV swab sent to lab. ca1 Strep swab sent to lab. Patient did not have IV access during this emergency room visit. 10:55 Urine collected: clean catch specimen, clear. ca1 11:24 XRAY Chest (1 view) In Process Unspecified. EDMS 12:01 COVID-19 swab sent to lab. ca1 Administered Medications: 11:55 Drug: SOLU-Medrol 125 mg Route: IM; Site: left gluteus; ca1 12:11 Follow up: Response: No adverse reaction ca1 Outcome: 11:56 Discharge ordered by MD. rn 12:11 Discharged to home ambulatory. ca1 12:11 Condition: stable 12:11 Discharge instructions given to patient, Instructed on discharge instructions, follow up and referral plans. Demonstrated understanding of instructions, follow-up care. 12:11 Patient left the ED. ca1 Addendum: 08/22/2019 10:05 Addendum: Other attempted to contact pt regarding negative COVID-19 swab result. Pt did d m5 not answer. Left voice mail. 10:13 Addendum: Other Pt notified of negative result. Advised to remain in isolation until no d m5 longer having symptoms and fever free for 72 hours without medicaiton. Signatures: Dispatcher [employer] [facility] Callie Pedraza, RN RN Vanna Chanel as Aubrey Jones MD MD rn Calderon, Audri, FRED RN aa5 Heath Arellano, RN RN jl7 Citlaly Infante RN RN ca1
--- NOTE | 2019-08-26 12:08 | EDPHYS ---
Physician Documentation [facility] Name: Jojo Aragon Age: 68 yrs Sex: Female : 1950 Arrival Date: 08/19/2019 Time: 10:24 Bed 4 Private MD: ED Physician Aubrey Jones HPI: 08/18 10:42 This 68 yrs old Female presents to ER via Unassigned with complaints of rn Headache, Pelvic Pain, Back Pain, Ear Pain. 10:42 The patient presents with sore throat. The patient describes throat pain as rn intermittent, raw. Onset: The symptoms/episode began/occurred 3 day(s) ago. Severity of symptoms: At their worst the symptoms were mild, in the emergency department the symptoms are unchanged. Modifying factors: The symptoms are alleviated by nothing, the symptoms are aggravated by nothing, Patient's oral intake status: good. Associated signs and symptoms: Pertinent positives: flu-like symptoms, rhinorrhea, shortness of breath Sore throat. The patient has experienced similar episodes in the past. Reports began Monday, feels like allergies or infection, reports headache/sore throat/congestion/intermittent sob but not much different from her normal COPD. No abd pain/nausea/vomiting/diarrhea. No sick contacts or travel. Also reports has fibromyalgia and sometimes "just needs steroid shot". Does not feel very ill. . Historical: - Allergies: 10:35 Bactrim; aa5 10:35 Codeine; aa5 10:35 Demerol; aa5 - PMHx: 10:35 COPD; Fibromyalgia; Hypertension; aa5 - PSHx: 10:35 Hysterectomy; Cholecystectomy; Tonsillectomy; Hernia repair; Gastric Bypass; aa5 - Immunization history:: Adult Immunizations unknown. - Social history:: Smoking status: Patient denies any tobacco usage or history of. - Family history:: not pertinent. - Hospitalizations: : No recent hospitalization is reported. ROS: 10:42 Constitutional: Negative for fever, chills, and weight loss, Eyes: Negative for injury, rn pain, redness, and discharge, ENT: + sore throat and ear/sinus pressure Neck: Negative for injury, pain, and swelling, Cardiovascular: Negative for chest pain, palpitations, and edema, Respiratory: + sob, neg for new cough Abdomen/GI: Negative for abdominal pain, nausea, vomiting, diarrhea, and constipation, MS/Extremity: Negative for injury and deformity, Skin: Negative for injury, rash, and discoloration, Neuro: + headache and generalized malaise Exam: 10:42 Constitutional: This is a well developed, well nourished patient who is awake, alert, rn and in no acute distress. Ambulatory to room without difficulty or assistance. Head/Face: Normocephalic, atraumatic. ENT: No stridor Neck: Trachea midline, no crepitus, + mildly tender cervical LAD, no meningismus Cardiovascular: Regular rate and rhythm. No pulse deficits. Respiratory: Speaking full sentences. No increased work of breathing, no retractions or nasal flaring. Abdomen/GI: soft, non-tender MS/ Extremity: Pulses equal, no cyanosis. Neurovascular intact. Full, normal range of motion. Equal circumference. Neuro: Awake and alert, GCS 15, oriented to person, place, time, and situation. Cranial nerves II-XII grossly intact. Motor strength 5/5 in all extremities. Sensory grossly intact. Cerebellar exam normal. Normal gait. Vital Signs: 10:35 BP 164 / 84; Pulse 67; Resp 16 S; Temp 98.8(O); Pulse Ox 100% on R/A; Weight 78.93 kg; aa5 Height 5 ft. 3 in. (160.02 cm) (R); Pain 4/10; 11:13 BP 124 / 60; Pulse 71; Resp 16 S; Pulse Ox 98% on R/A; ca1 11:48 BP 118 / 52; Pulse 57; Resp 16 S; Pulse Ox 97% on R/A; ca1 10:35 Body Mass Index 30.82 (78.93 kg, 160.02 cm) aa5 MDM: 10:36 Patient medically screened. rn 10:46 ED course: Also reports back and bladder "feel inflamed". . rn 11:53 Differential diagnosis: group A strep tonsillitis, influenza, laryngitis, pharyngitis, rn upper respiratory infection, viral syndrome. Data reviewed: vital signs, nurses notes, lab test result(s), radiologic studies, plain films, and as a result, I will discharge patient. Test interpretation: by ED physician or midlevel provider: plain radiologic studies, CXR neg for pneumonia. Counseling: I had a detailed discussion with the patient and/or guardian regarding: the historical points, exam findings, and any diagnostic results supporting the discharge/admit diagnosis, lab results, radiology results, the need for outpatient follow up, to return to the emergency department if symptoms worsen or persist or if there are any questions or concerns that arise at home. Special discussion: I discussed with the patient/guardian in detail that at this point there is no indication for admission to the hospital. It is understood, however, that if the symptoms persist or worsen the patient needs to return immediately for re-evaluation. Based on the history and exam findings, there is no indication for further emergent testing or inpatient evaluation. I discussed with the patient/guardian the need to see the primary care provider for further evaluation of the symptoms. ED course: Flu/strep/CXR/UA neg, will dc home after COVID-19 swab, instructed to quarantine, and f/u with PCP. . 08/18 10:41 Order name: Strep; Complete Time: 11:42 rn 08/18 10:41 Order name: Flu; Complete Time: 11:42 08/18 10:41 Order name: Urine Microscopic Only; Complete Time: 11:42 rn 08/18 11:26 Order name: Urine Dipstick--Ancillary (enter results); Complete Time: 11:42 eb 08/18 11:31 Order name: Throat Culture [facility] 08/18 11:44 Order name: COVID-19 rn 08/18 10:41 Order name: XRAY Chest (1 view); Complete Time: 11:51 rn 08/18 10:41 Order name: Urine Dipstick-Ancillary (obtain specimen); Complete Time: 11:12 rn Administered Medications: 11:55 Drug: SOLU-Medrol 125 mg Route: IM; Site: left gluteus; ca1 12:11 Follow up: Response: No adverse reaction ca1 Disposition: 08/19/19 11:56 Discharged to Home. Impression: Fibromyalgia, Viral syndrome. - Condition is Stable. - Discharge Instructions: Myofascial Pain Syndrome and Fibromyalgia, Sore Throat, Upper Respiratory Infection, Adult. - Medication Reconciliation Form, Thank You Letter, Antibiotic Education, Prescription Opioid Use form. - Follow up: Private Physician; When: As needed; Reason: Recheck today's complaints, Re-evaluation by your physician. - Problem is new. - Symptoms have improved. Signatures: Dispatcher [employer] EDIL Aubrey Jones MD MD rn Calderon, Audri RN RN aa5 Citlaly Infante RN RN ca1 Corrections: (The following items were deleted from the chart) 12:11 11:56 08/19/2019 11:56 Discharged to Home. Impression: Fibromyalgia; Viral syndrome. ca1 Condition is Stable. Forms are Medication Reconciliation Form, Thank You Letter, Antibiotic Education, Prescription Opioid Use. Follow up: Private Physician; When: As needed; Reason: Recheck today's complaints, Re-evaluation by your physician. Problem is new. Symptoms have improved. rn
== END 2019-08-19 12:11 | disposition home or self-care (01) ==
LOC: ER 10:21
DX: B34.9 Viral infection, unspecified (principal); Z20.828 Contact with and (suspected) exposure to other viral communicable diseases; M79.7 Fibromyalgia; I10 Essential (primary) hypertension; Z88.1 Allergy status to other antibiotic agents; Z88.5 Allergy status to narcotic agent
CPT/HCPCS: 87070; 87081; 87804 ×2; 71045; 96372; 99284; J2930; 81003; 81015

== ENCOUNTER 2020-02-01 17:37 | Emergency (ER) | payer OTHER ==
--- OUTSIDE RECORDS SUMMARY | 2020-02-01 17:39 | XMS REPORT | Clinical Summary ---
:1950 Author Organization [facility] Address [address] [place] [address] Care Team Providers Name Role Phone Jacqueline [...] Team Description 07/23/2019 Documentation Weight Management Damaris Cano RN Bar iatric Follow Up e-mail after 01/31/2019 Surgical History Surgery Date Site/Laterality Comments GASTRECTOMY, SLEEVE, LAPAROSCOPIC 03/27/1987 - 03/26/1988 CHOLECYSTECTOMY TONSILLECTOMY ANKLE FRACTURE SURGERY 03/27/1977 - Left hardware present 03/26/1978 HYSTERECTOMY ESOPHAGOGASTRODUODENOSCOPY (EGD) 12/21/2017 N/A Procedure: EGD WITH BIOPSY; Surgeon : Jose Hill MD; Loca tion: [facility]; Service: General; Latera lity: N/A; UMBILICAL HERNIA REPAIR GASTROENTEROSTOMY, MONI-EN-Y, 04/18/2018 Abdomen/N/A Pr ocedure: LAPAROSCOPIC LAPAROSCOPIC, WITH INTRAOPERATIVE LYSIS OF ADHESIONS, ENDOSCOPY REMOVAL OF ERODE D BAND MESH , PARTIAL GASTRECTOMY WITH MONI EN Y GASTROJEJUN OSTOMY WITH INTRAOPERAT ALEKSANDER ENDOSCOPY; Surg martin: Jose Hill MD ; Location: [facility]; Service: General ; Laterality: N/A; Medical devices from this surgery are in the Implants section . Medical History Medical History Date Comments Hypertension Fibromyalgia, primary COPD (chronic obstructive pulmonary disease) (HCC) GERD (gastroesophageal reflux disease) Cardiomyopathy (HCC) Anesthesia nhap/nfhap - Full dentures History of transfusion 49 yrs ago w/ chi ldbirth Exercises 1 to 2 times per week denies c p/sob w/ exertion - unless asthma is present Disease of thyroid gland hypo thyroid Arrhythmia occaisional tachycar lexus - rare -r/t thyroid med? Asthma no hospitalization - controlled w/ INH Constipated occaisional Peptic ulceration resolved Obesity Family History Medical History Relation Name Comments Alzheimer's disease Mother Relation Name Status Comments Mother Social History Tobacco Use Types Packs/Day Years Used Date Never Smoker Smokeless Tobacco: Never Used Alcohol Use Drinks/Week oz/Week Comments No Sex Assigned at Date Recorded Not on file Last Filed Vital Signs Not on file Plan of Treatment Health Maintenance Due Date Last Done Comments BREAST CANCER SCREENING 2002 COLONOSCOPY SCREENING 2002 SHINGLES VACCINES (#1) 2002 65+ PNEUMOCOCCAL VACCINE (1 of 1 - PPSV23) 2017 INFLUENZA VACCINE 10/26/2019 Implants Implanted Type Area Pot Fireman Device Shelf Model / Identifier Expiration Serial / Date Lot Reprocessed Ethicon Endo 45cm Ultracisio n Harmonic Connor Curved Lamberto, With Advanced Hemostasis Cautery / N/A: SEBASTIÁN 11/15/2020 HARH4 5 / Implanted: Qty: 1 on 04/18/2018 by Jose Hill MD at [facility] Electrosurgery N/A SUSTAINABILITY / SOLUTIONS [id number] (FORMERLY ASCENT) Drain Wnd Chnl 19fr n Rnd Hbls Fl-Flut W/ n Tr ocar - [id number] Surgical N/A: ETHICON DIV OF 2231 / Implanted: Qty: 1 on 04/18/2018 by Jose Hill MD at [facility] Implants; N/A AMBER & / Expanders; AMBER Extenders; Surgical Wires Results Not on fileafter 01/31/2019 Advance Directives For more information, please contact: [phone] Type Date Recorded Patient An/Sqq 89(V)15 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
[2020-02-01 19:04] LABS: Absolute Lymphocytes (CBC) 1.5 K/uL (0.7-4.9); Basophils % 0.6 % (0-1.3); Hematocrit 36.2 % (36.0-45.0); Lymphocytes % 28.1 % (15.3-44.8); MPV 10.5 fL (7.6-11.3); RBC Red Blood Cell Count 4.09 M/uL (3.86-4.86)
[2020-02-01] MEDS ORDERED: MORPHINE 2 MG/ML SYR ONE (19:08)
[2020-02-01] MEDS ORDERED: DIAZEPAM 5 MG TABLET ONE (19:08)
[2020-02-01] MEDS ORDERED: ONDANSETRON 4 MG/2 ML VIAL ONE (19:08)
[2020-02-01] MEDS ORDERED: NA CHLORIDE 0.9% 1,000 ML ONE (19:09)
[2020-02-01] MEDS ORDERED: KETOROLAC 30 MG/ML INJ ONE (19:09)
[2020-02-01 19:19] LABS: ALT/SGPT 174 U/L (12-78); AST/SGOT 161 U/L (15-37); Albumin 3.2 g/dL (3.4-5.0); Alkaline Phosphatase 258 U/L (45-117); BUN Blood Urea Nitrogen 15 mg/dL (7-18); Bicarbonate 30 mmol/L (21-32); Bilirubin Direct < 0.1 mg/dL (0-0.2); Bilirubin Total 0.3 mg/dL (0.2-1.0); Glucose Level 85 mg/dL (74-106); HDL Cholesterol 60 mg/dL (40-60); LDL Cholesterol, Calculated 105 (<130); Magnesium 2.1 mg/dL (1.8-2.4); NT PRO-BNP 268 pg/mL (<125); Protein, Total 6.5 g/dL (6.4-8.2); Sodium Level 143 mmol/L (136-145); Troponin (Emerg Dept Use Only) < 0.02 ng/mL (0.0-0.045)
--- NOTE | 2020-02-01 20:15 | RAD REPORT ---
EXAM DESCRIPTION: Ruth Single View02/01/2020 7:28 pm CLINICAL HISTORY: Chest pain COMPARISON: 2018 FINDINGS: The lungs appear clear of acute infiltrate. The heart is mildly enlarged IMPRESSION: No acute abnormalities displayed
--- NOTE | 2020-02-01 20:26 | RAD REPORT ---
EXAM DESCRIPTION: CT - Angio Aorta For Dissection - 02/01/2020 7:57 pm CLINICAL HISTORY: . Chest and abd pain COMPARISON: March 2019 TECHNIQUE: Computed tomography angiography of the chest, abdomen pelvis were obtained. 100 cc Isovue 370 was administered intravenously. Coronal and sagittal reconstruction were performed. MIP 3D reconstruction was performed All CT scans are performed using dose optimization technique as appropriate and may include automated exposure control or mA/KV adjustment according to patient size. FINDINGS: An aortic dissection is not seen. An aortic aneurysm is not displayed. The celiac, SMA and PRADEEP are patent . 19 millimeters splenic arterial aneurysm A lung consolidation is not present. A pericardial effusion is not seen. A pleural effusion is not n oted. 4.3 centimeter hepatic lesion has peripheral nodular enhancement. It is unchanged and probably repres ents a hemangioma. Spleen, pancreas, adrenals and right kidney demonstrate no significant abnormality. A 2.2 centimeter dense mass suspected within the mid pole left kidney No evidence of diverticulitis. Mild deformities involve several thoracic vertebral bodies probably ch ronic IMPRESSION: Negative for an aortic dissection. 2.2 centimeter mass suspected mid pole left kidney. Ultrasound recommended
[2020-02-01 21:21] LABS: Urine Blood TRACE (NEG); Urine Glucose NEGATIVE (NEG); Urine Protein NEGATIVE (NEG); Urine pH 7.5 (5.0-7.0)
--- NOTE | 2020-02-01 22:06 | ER ---
Nurse's Notes [facility] Name: Jojo Aragon Age: 69 yrs Sex: Female : 1950 Arrival Date: 02/01/2020 Time: 17:41 Bed 7 Private MD: Diagnosis: Renal Mass Presentation: 01/31 18:27 Chief complaint: Patient states: woke up with upper back pain, pain is aggravated by iw movement, especially when she moves her hands above her head , denies SOB or cough, denies chest pain. Coronavirus screen: At this time, the client does not indicate any symptoms associated with coronavirus-19. Ebola Screen: Patient negative for fever greater than or equal to 101.5 degrees Fahrenheit, and additional compatible Ebola Virus Disease symptoms Patient denies exposure to infectious person. Patient denies travel to an Ebola-affected area in the 21 days before illness onset. No symptoms or risks identified at this time. Initial Sepsis Screen: Does the patient meet any 2 criteria? No. Patient's initial sepsis screen is negative. Does the patient have a suspected source of infection? No. Patient's initial sepsis screen is negative. Risk Assessment: Do you want to hurt yourself or someone else? Patient reports no desire to harm self or others. Onset of symptoms was February 01, 2020. 18:27 Method Of Arrival: Wheelchair iw 18:27 Acuity: WOODY 3 iw Historical: - Allergies: 18:29 Bactrim; iw 18:29 Codeine; iw 18:29 Demerol; iw - Home Meds: 18:29 Brandon Thyroid 60 mg Oral tab [Active]; candesartan 4 mg Oral tab 1 tab once daily iw [Active]; Lasix 20 mg Oral tab 1 tab once daily [Active]; tramadol 50 mg Oral tab [Active]; inhaler [Active]; - PMHx: 18:29 COPD; Fibromyalgia; Hypertension; iw - PSHx: 18:29 Hysterectomy; Cholecystectomy; Tonsillectomy; Hernia repair; Gastric Bypass; iw - Immunization history:: Adult Immunizations not up to date. - Social history:: Smoking status: Patient denies any tobacco usage or history of. - Family history:: not pertinent. Screenin:45 Abuse screen: Denies threats or abuse. Denies injuries from another. Nutritional jl7 screening: No deficits noted. Tuberculosis screening: No symptoms or risk factors identified. Fall Risk IV access (20 points). Total Arriaga Fall Scale indicates No Risk (0-24 pts). Assessment: 18:45 General: Appears in no apparent distress. uncomfortable, Behavior is calm, cooperative, jl7 appropriate for age. Pain: Complains of pain in left subscapular area and right subscapular area Pain does not radiate. Pain currently is 6 out of 10 on a pain scale. Pain began this morning Is intermittent. Neuro: Level of Consciousness is awake, alert, obeys commands, Oriented to person, place, time. Cardiovascular: Patient's skin is warm and dry. Respiratory: Airway is patent Respiratory effort is even, unlabored, Respiratory pattern is regular, symmetrical. Derm: Skin is pink, warm \T\ dry. 19:45 Reassessment: Patient appears in no apparent distress at this time. Patient is alert, lp1 oriented x 3, equal unlabored respirations, skin warm/dry/pink. Patient reports pain relief at this time after medication administered; senior service technician at bedside for transport. 20:07 Reassessment: patient is back from CT scan. awaiting result. patient is comfortable rv laying on her right side. 20:21 Reassessment: EKG DONE BY RAYMUNDO IBARRA AT BEDSIDE, GIVEN TO MERLIN RIBEIRO. rv 20:22 Reassessment: Patient appears in no apparent distress at this time. Reports pain 5/10 lp1 at this time; Assisted with repositioning in bed; aware of waiting for CT results. 21:00 Reassessment: URINE TEST DONE. SPECIMEN SENT. rv 22:00 Reassessment: Patient is alert, oriented x 3, equal unlabored respirations, skin lp1 warm/dry/pink. Provider at bedside to discuss results with patient; patient demonstrates understanding, states scheduled follow up with spine doctor this week; states pain relief with Valium administered. Vital Signs: 18:27 BP 153 / 73; Pulse 65; Resp 16; Temp 97.3; Pulse Ox 100% on R/A; Weight 79.83 kg; iw Height 5 ft. 3 in. (160.02 cm); Pain 6/10; 19:46 BP 139 / 68; Pulse 56; Resp 18; Pulse Ox 99% on R/A; lp1 20:06 BP 117 / 42; Pulse 60; Resp 16; Pulse Ox 100% on R/A; rv 20:23 BP 137 / 65; Pulse 63; Resp 17; Pulse Ox 98% on R/A; Pain 5/10; lp1 21:02 BP 143 / 61; Pulse 56; Resp 14; Pulse Ox 100% on R/A; rv 22:04 BP 162 / 73; Pulse 61; Resp 17; Pulse Ox 100% on R/A; rv 22:09 BP 145 / 65; Pulse 60; Resp 16; Pulse Ox 97% on R/A; lp1 18:27 Body Mass Index 31.18 (79.83 kg, 160.02 cm) iw ED Course: 17:41 Patient arrived in ED. mr 18:19 Raymundo Almodovar MD is Attending Physician. marv 18:28 Triage completed. iw 18:28 Arm band placed on. iw 18:35 Heath Arellano RN is Primary Nurse. jl7 18:45 Patient has correct armband on for positive identification. Bed in low position. Call jl7 light in reach. Side rails up X 1. issue clerk on. Pulse ox on. NIBP on. 18:45 Initial lab(s) drawn, by az, sent to lab. Inserted saline lock: 20 gauge in left jl7 forearm, using aseptic technique. Blood collected. 19:20 Alfred Ribeiro PA is PHCP. [facility] 19:28 XRAY Chest (1 view) In Process Unspecified. EDMS 19:57 CT Aorta for Dissection In Process Unspecified. EDMS 21:37 US Rp Exam Limited In Process Unspecified. EDMS 21:44 Ultrasound completed. Patient tolerated well. Notified RAG BOILER/MERLIN mott. sg3 22:10 No provider procedures requiring assistance completed. IV discontinued, No lp1 redness/swelling at site. Pressure dressing applied. Administered Medications: 18:56 Drug: Valium 5 mg Route: PO; jl7 20:22 Follow up: Response: No adverse reaction lp1 18:58 Drug: NS 0.9% 1000 ml Route: IV; Rate: 125 ml/hr; Site: left forearm; jl7 22:13 Follow up: IV Status: IV converted to saline lock lp1 18:58 Drug: NS 0.9% 500 ml Route: IV; Rate: bolus; Site: left forearm; jl7 20:22 Follow up: IV Status: Completed infusion; IV Intake: 500ml lp1 18:58 Drug: Zofran (Ondansetron) 4 mg Route: IVP; Site: left forearm; jl7 20:22 Follow up: Response: No adverse reaction lp1 19:00 Drug: morphine 2 mg Route: IVP; Site: left forearm; jl7 20:22 Follow up: Response: Pain is decreased lp1 19:04 Not Given (Patient Refused): TORadol 30 mg IVP once jl7 Intake: 20:22 IV: 500ml; Total: 500ml. lp1 Outcome: 22:05 Discharge ordered by . anan 22:10 Discharged to home via wheelchair, with family. lp1 22:10 Condition: good 22:10 Discharge instructions given to patient, Instructed on discharge instructions, follow up and referral plans. medication usage, Demonstrated understanding of instructions, follow-up care, medications, Prescriptions given X 1. 22:13 Patient left the ED. lp1 Signatures: Dispatcher [employer] EDMS Raymundo Almodovar MD MD cha Mickail, Joel, PA PA [facility] Celia Cintron mr Eri Julien, RN FRED iw Raymundo De Anda RN RN lp1 Heath Arellano RN RN jl7 Abbie Hurst 3 Jr [place], RN RN rv Corrections: (The following items were deleted from the chart) 22:17 22:10 Discharged to home with family, lp1 lp1 22:17 22:10 Discharge instructions given to patient, Instructed on discharge instructions, lp1 follow up and referral plans. medication usage, Demonstrated understanding of instructions, follow-up care, medications, Prescriptions given X 1, lp1
--- NOTE | 2020-02-01 22:06 | EDPHYS ---
Physician Documentation [facility] Name: Jojo Aragon Age: 69 yrs Sex: Female : 1950 Arrival Date: 02/01/2020 Time: 17:41 Bed 7 Private MD: ED Physician Raymundo Almodovar HPI: 01/31 18:30 This 69 yrs old Female presents to ER via Wheelchair with complaints of Back marv Pain. 18:30 The patient presents with pain and decreased range of motion, and tenderness. The marv symptoms are located in the left scapular area, right scapular area, left subscapular area, right subscapular area and thoracic area. Onset: The symptoms/episode began/occurred this morning, today. The pain does not radiate. Associated signs and symptoms: Pertinent positives: none. The problem was sustained from unknown cause. Modifying factors: The patient symptoms are alleviated by remaining still, the patient symptoms are aggravated by any movement, bending, movement. Severity of symptoms: At their worst the symptoms were mild, in the emergency department the symptoms are unchanged. The patient has not experienced similar symptoms in the past. Historical: - Allergies: 18:29 Bactrim; iw 18:29 Codeine; iw 18:29 Demerol; iw - Home Meds: 18:29 [place] Thyroid 60 mg Oral tab [Active]; candesartan 4 mg Oral tab 1 tab once daily iw [Active]; Lasix 20 mg Oral tab 1 tab once daily [Active]; tramadol 50 mg Oral tab [Active]; inhaler [Active]; - PMHx: 18:29 COPD; Fibromyalgia; Hypertension; iw - PSHx: 18:29 Hysterectomy; Cholecystectomy; Tonsillectomy; Hernia repair; Gastric Bypass; iw - Immunization history:: Adult Immunizations not up to date. - Social history:: Smoking status: Patient denies any tobacco usage or history of. - Family history:: not pertinent. ROS: 18:30 Constitutional: Negative for fever, chills, and weight loss, Eyes: Negative for injury, marv pain, redness, and discharge, ENT: Negative for injury, pain, and discharge, Neck: Negative for injury, pain, and swelling, Cardiovascular: Negative for chest pain, palpitations, and edema, Respiratory: Negative for shortness of breath, cough, wheezing, and pleuritic chest pain, Abdomen/GI: Negative for abdominal pain, nausea, vomiting, diarrhea, and constipation, : Negative for injury, bleeding, discharge, and swelling, MS/Extremity: Negative for injury and deformity, Skin: Negative for injury, rash, and discoloration, Neuro: Negative for headache, weakness, numbness, tingling, and seizure, Psych: Negative for depression, anxiety, suicide ideation, homicidal ideation, and hallucinations, Allergy/Immunology: Negative for hives, rash, and allergies, Endocrine: Negative for neck swelling, polydipsia, polyuria, polyphagia, and marked weight changes, Hematologic/Lymphatic: Negative for swollen nodes, abnormal bleeding, and unusual bruising. 18:30 Back: Positive for decreased range of motion, pain at rest, of the left scapular area, right scapular area, left subscapular area, right subscapular area and thoracic area. Exam: 18:30 Constitutional: This is a well developed, well nourished patient who is awake, alert, marv and in no acute distress. Head/Face: Normocephalic, atraumatic. Eyes: Pupils equal round and reactive to light, extra-ocular motions intact. Lids and lashes normal. Conjunctiva and sclera are non-icteric and not injected. Cornea within normal limits. Periorbital areas with no swelling, redness, or edema. ENT: Nares patent. No nasal discharge, no septal abnormalities noted. Tympanic membranes are normal and external auditory canals are clear. Oropharynx with no redness, swelling, or masses, exudates, or evidence of obstruction, uvula midline. Mucous membranes moist. Neck: Trachea midline, no thyromegaly or masses palpated, and no cervical lymphadenopathy. Supple, full range of motion without nuchal rigidity, or vertebral point tenderness. No Meningismus. Chest/axilla: Normal chest wall appearance and motion. Nontender with no deformity. No lesions are appreciated. Cardiovascular: Regular rate and rhythm with a normal S1 and S2. No gallops, murmurs, or rubs. Normal PMI, no JVD. No pulse deficits. Respiratory: Lungs have equal breath sounds bilaterally, clear to auscultation and percussion. No rales, rhonchi or wheezes noted. No increased work of breathing, no retractions or nasal flaring. Abdomen/GI: Soft, non-tender, with normal bowel sounds. No distension or tympany. No guarding or rebound. No evidence of tenderness throughout. MS/ Extremity: Pulses equal, no cyanosis. Neurovascular intact. Full, normal range of motion. Neuro: Awake and alert, GCS 15, oriented to person, place, time, and situation. Cranial nerves II-XII grossly intact. Motor strength 5/5 in all extremities. Sensory grossly intact. Cerebellar exam normal. Normal gait. Psych: Awake, alert, with orientation to person, place and time. Behavior, mood, and affect are within normal limits. 18:30 Back: pain, that is mild, that is moderate, ROM is painful, lordosis, CVA tenderness, is absent, vertebral tenderness, is not appreciated, muscle spasm, is appreciated in the left scapular area, right scapular area, left subscapular area, right subscapular area, left mid back and right mid back. 18:30 Skin: Appearance: Color: normal in color, Temperature: normal temperature, Moisture: normal moisture, petechiae, not noted, ecchymosis, not noted, flushing, not noted, diaphoresis is not appreciated, swelling, is not appreciated. 20:22 ECG was reviewed by the Attending Physician. [facility] Vital Signs: 18:27 BP 153 / 73; Pulse 65; Resp 16; Temp 97.3; Pulse Ox 100% on R/A; Weight 79.83 kg; iw Height 5 ft. 3 in. (160.02 cm); Pain 6/10; 19:46 BP 139 / 68; Pulse 56; Resp 18; Pulse Ox 99% on R/A; lp1 20:06 BP 117 / 42; Pulse 60; Resp 16; Pulse Ox 100% on R/A; rv 20:23 BP 137 / 65; Pulse 63; Resp 17; Pulse Ox 98% on R/A; Pain 5/10; lp1 21:02 BP 143 / 61; Pulse 56; Resp 14; Pulse Ox 100% on R/A; rv 22:04 BP 162 / 73; Pulse 61; Resp 17; Pulse Ox 100% on R/A; rv 22:09 BP 145 / 65; Pulse 60; Resp 16; Pulse Ox 97% on R/A; lp1 18:27 Body Mass Index 31.18 (79.83 kg, 160.02 cm) iw MDM: 18:[address] [facility] 18:34 Differential diagnosis: chronic back pain, Fatigue Fracture Leaking Aortic Aneurysm marv Obesity ruptured disc, sprain, Ureterolithiasis vertebral fracture. Data reviewed: vital signs, nurses notes, lab test result(s), EKG, radiologic studies, CT scan, plain films. Data interpreted: monitor technician: rate is 65 beats/min, rhythm is regular, Pulse oximetry: on room air is 100 %. Test interpretation: by ED physician or midlevel provider: ECG, plain radiologic studies. Counseling: I had a detailed discussion with the patient and/or guardian regarding: the historical points, exam findings, and any diagnostic results supporting the discharge/admit diagnosis, lab results, radiology results, the need for outpatient follow up, for definitive care, an accounting representative. 01/31 18:39 Order name: Basic Metabolic Panel; Complete Time: 19:19 [facility] 01/31 18:39 Order name: CBC with Diff; Complete Time: 19:19 [facility] 01/31 18:39 Order name: LFT's; Complete Time: 19:19 [facility] 01/31 18:39 Order name: Magnesium; Complete Time: 19:19 [facility] 01/31 18:39 Order name: NT PRO-BNP; Complete Time: 19:19 [facility] 01/31 18:39 Order name: Troponin (emerg Dept Use Only); Complete Time: 19:19 [facility] 01/31 18:39 Order name: XRAY Chest (1 view); Complete Time: 20:24 [facility] 01/31 18:39 Order name: Lipid Profile; Complete Time: 19:19 [facility] 01/31 18:39 Order name: Urine Culture [facility] 01/31 18:39 Order name: CT Aorta for Dissection; Complete Time: 20:32 [facility] 01/31 20:34 Order name: US Rp Exam Limited [facility] 01/31 21:01 Order name: Urine Dipstick--Ancillary (enter results); Complete Time: 21:30 ar5 01/31 18:39 Order name: EKG; Complete Time: 18:40 [facility] 01/31 18:39 Order name: Cardiac monitoring; Complete Time: 20:22 [facility] 01/31 18:39 Order name: EKG - Nurse/Tech; Complete Time: 20:22 [facility] 01/31 18:39 Order name: IV Saline Lock; Complete Time: 18:51 [facility] 01/31 18:39 Order name: Labs collected and sent; Complete Time: 18:51 [facility] 01/31 18:39 Order name: O2 Per Protocol; Complete Time: 18:51 [facility] 01/31 18:39 Order name: O2 Sat Monitoring; Complete Time: 18:51 [facility] 01/31 18:39 Order name: Urine Dipstick-Ancillary (obtain specimen); Complete Time: 21:00 [facility] EC:22 Rate is 56 beats/min. Rhythm is regular. QRS [place] is Normal. SC interval is normal. QRS jmm interval is normal. QT interval is normal. No Q waves. T waves are Normal. No ST changes noted. Administered Medications: 18:56 Drug: Valium 5 mg Route: PO; jl7 20:22 Follow up: Response: No adverse reaction lp1 18:58 Drug: NS 0.9% 1000 ml Route: IV; Rate: 125 ml/hr; Site: left forearm; jl7 22:13 Follow up: IV Status: IV converted to saline lock lp1 18:58 Drug: NS 0.9% 500 ml Route: IV; Rate: bolus; Site: left forearm; jl7 20:22 Follow up: IV Status: Completed infusion; IV Intake: 500ml lp1 18:58 Drug: Zofran (Ondansetron) 4 mg Route: IVP; Site: left forearm; jl7 20:22 Follow up: Response: No adverse reaction lp1 19:00 Drug: morphine 2 mg Route: IVP; Site: left forearm; jl7 20:22 Follow up: Response: Pain is decreased lp1 19:04 Not Given (Patient Refused): TORadol 30 mg IVP once jl7 Disposition: 02/01/20 22:05 Discharged to Home. Impression: Renal Mass. - Condition is Stable. - Discharge Instructions: Back Pain, Adult. - Prescriptions for Valium 5 mg Oral Tablet - take 1 tablet by ORAL route every 8 hours As needed; 20 tablet. - Medication Reconciliation Form, Thank You Letter, Antibiotic Education, Prescription Opioid Use form. - Follow up: Private Physician; When: 2 - 3 days; Reason: Recheck today's complaints, Continuance of care, Re-evaluation by your physician. Addendum: 02/03/2020 08:51 Co-signature as Attending Physician, Raymundo Almodovar MD I agree with the assessment and c benitez plan of care. Signatures: Dispatcher [employer] Raymundo Damon MD MD cha Mickail, Joel, PA PA jmm Williams, Irene, RN Kaylee Okeefe RN RN lp1 Heath Arellano RN RN jl7 Corrections: (The following items were deleted from the chart) 01/31 22:13 22:05 02/01/2020 22:05 Discharged to Home. Impression: Renal Mass. Condition is Stable. lp1 Forms are Medication Reconciliation Form, Thank You Letter, Antibiotic Education, Prescription Opioid Use. Follow up: Private Physician; When: 2 - 3 days; Reason: Recheck today's complaints, Continuance of care, Re-evaluation by your physician. anna
[2020-02-01 22:33] VITALS: TEMP 97.3
[2020-02-01 22:43] VITALS: BP 145/65; O2SAT 97
--- NOTE | 2020-02-02 10:54 | RAD REPORT ---
EXAM DESCRIPTION: US - Renal Ultrasound-Limited - 02/01/2020 9:36 pm CLINICAL HISTORY: left sided mass COMPARISON: Angio Aorta For Dissection dated 02/01/2020 FINDINGS: The left kidney measures 9.6 x 4.5 x 5.1 cm. At the level of the mid to inferior pole left kidney a solid mass is present maximally measuring 2.7 cm. IMPRESSION: Solid left renal mass measuring maximally 2.7 cm, likely representing renal cell carcino ma.
--- NOTE | 2020-02-03 07:25 | EKG ---
Test Date: 2020-02-01 Test Time: 20:14:17 Special Loan Officer: ARIADNA MEASUREMENT RESULTS: Intervals: Rate: 56 NM: 162 QRSD: 72 QT: 444 QTc: 428 [place]: P: 52 NM: 162 QRS: 35 T: 58 INTERPRETIVE STATEMENTS: Sinus bradycardia Otherwise normal ECG Compared to ECG 09/13/2018 13:04:44 No significant changes Electronically Signed On 02-03-20 07:23:37 [employer]ER POLISHER by Jose Bingham
== END 2020-02-01 22:13 | disposition home or self-care (01) ==
LOC: ER 17:37
DX: N28.89 Other specified disorders of kidney and ureter (principal); I10 Essential (primary) hypertension; J44.9 Chronic obstructive pulmonary disease, unspecified; Z88.1 Allergy status to other antibiotic agents; Z88.5 Allergy status to narcotic agent; Z98.84 Bariatric surgery status
CPT/HCPCS: 96361; 93005; 87088; 85025; 87086; 80048; 36415; 83735; 80061; 80076; 81003; 84484; 83880; 71275; 74175; 71045; 76775; 96375; 96374; 99284; Q9967; J2270; J7030; J2405

== ENCOUNTER 2020-02-04 15:46 | Emergency (ER) | payer OTHER ==
--- OUTSIDE RECORDS SUMMARY | 2020-02-04 15:48 | XMS REPORT | Clinical Summary ---
:1950 Author Organization [facility] Address [address] [place] [address] Care Team Providers Name Role Phone Jacqueline [...] RN Bar iatric Follow Up e-mail after 02/03/2019 Surgical History Surgery Date Site/Laterality Comments GASTRECTOMY, SLEEVE, LAPAROSCOPIC 03/27/1987 - 03/26/1988 CHOLECYSTECTOMY TONSILLECTOMY ANKLE FRACTURE SURGERY 03/27/1977 - Left hardware present 03/26/1978 HYSTERECTOMY ESOPHAGOGASTRODUODENOSCOPY (EGD) 12/21/2017 N/A Procedure: EGD WITH BIOPSY; Surgeon : Jose Hill MD; Loca tion: [facility]; Service: General; Latera lity: N/A; UMBILICAL HERNIA REPAIR GASTROENTEROSTOMY, MONI-EN-Y, 04/18/2018 Abdomen/N/A Pr ocedure: LAPAROSCOPIC LAPAROSCOPIC, WITH INTRAOPERATIVE LYSIS OF ADHESIONS, ENDOSCOPY REMOVAL OF ERODE D BAND MESH , PARTIAL GASTRECTOMY WITH MONI EN Y GASTROJEJUN OSTOMY WITH INTRAOPERAT ALEKSANDER ENDOSCOPY; Surg martin: Jose Hill MD ; Location: [facility]; Service: General ; Laterality: N/A; Medical [...] INFLUENZA VACCINE 10/26/2019 Implants Implanted Type Area Pecan Huller Device Shelf Model / Identifier Expiration Serial / Date Lot Reprocessed Ethicon Endo 45cm Ultracisio n Harmonic Connor Curved Lamberto, With Advanced Hemostasis Cautery / N/A: SEBASTIÁN 11/15/2020 HARH4 5 / Implanted: Qty: 1 on 04/18/2018 by Jose Hill MD at [facility] Electrosurgery N/A SUSTAINABILITY / SOLUTIONS [id number] (FORMERLY ASCENT) Drain Wnd Chnl 19fr n Rnd Hbls Fl-Flut W/ n Tr ocar - [id number] Surgical N/A: ETHICON DIV OF 2231 / Implanted: Qty: 1 on 04/18/2018 by Jose Hill MD at [facility] Implants; N/A AMBER & / Expanders; AMBER Extenders; Surgical Wires Results Not on fileafter 02/03/2019 Advance Directives For more information, please contact: [phone] Type Date Recorded 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
[2020-02-04] MEDS ORDERED: DIAZEPAM 5 MG TABLET ONE (19:08)
--- NOTE | 2020-02-04 19:08 | ER ---
Nurse's Notes [facility] Name: Jojo Aragon Age: 69 yrs Sex: Female : 1950 Arrival Date: 02/04/2020 Time: 15:52 Bed 15 Private MD: Diagnosis: Low back pain;Strain of muscle and tendon of back wall of thorax;Other specified disorders of kidney and ureter-2 cm left renal mass, renal cell carcinoma Presentation: 02/03 16:24 Chief complaint: Patient states: Mid and upper back pain x 2 - 3 days, has been ca1 steadily worse. Was here 2 - 3 days ago for same thing. Had an MRI done and I have it with me right now. Was in the restroom, when I stood up I was in excruciating pain and I felt like I was going to pass out from the pain. I take tramadol, no relief. Coronavirus screen: Client denies travel out of the [place] in the last 14 days. At this time, the client does not indicate any symptoms associated with coronavirus-19. Ebola Screen: Patient negative for fever greater than or equal to 101.5 degrees Fahrenheit, and additional compatible Ebola Virus Disease symptoms Patient denies exposure to infectious person. Patient denies travel to an Ebola-affected area in the 21 days before illness onset. No symptoms or risks identified at this time. Initial Sepsis Screen: Does the patient meet any 2 criteria? No. Patient's initial sepsis screen is negative. Does the patient have a suspected source of infection? No. Patient's initial sepsis screen is negative. Risk Assessment: Do you want to hurt yourself or someone else? Patient reports no desire to harm self or others. Onset of symptoms was February 04, 2020. 16:24 Method Of Arrival: Wheelchair ca1 16:24 Acuity: WOODY 3 ca1 Historical: - Allergies: 16:28 Bactrim; ca1 16:28 Codeine; ca1 16:28 Demerol; ca1 16:28 Toradol; ca1 - Home Meds: 16:28 [place] Thyroid 60 mg Oral tab [Active]; candesartan 4 mg Oral tab 1 tab once daily ca1 [Active]; inhaler [Active]; Lasix 20 mg Oral tab 1 tab once daily [Active]; tramadol 50 mg Oral tab [Active]; - PMHx: 16:28 COPD; Fibromyalgia; Hypertension; ca1 - PSHx: 16:28 Hysterectomy; Cholecystectomy; Tonsillectomy; Hernia repair; Gastric Bypass; ca1 - Immunization history:: Adult Immunizations up to date, Flu vaccine is not up to date. - Social history:: Smoking status: Patient denies any tobacco usage or history of. - Family history:: not pertinent. Screenin:45 Abuse screen: Denies threats or abuse. Nutritional screening: No deficits noted. tw2 Tuberculosis screening: No symptoms or risk factors identified. Fall Risk Secondary diagnosis (15 points) impaired mobility. Assessment: 18:30 General: Appears in no apparent distress. obese, well groomed, Behavior is calm, tw2 cooperative, appropriate for age. Pain: Complains of pain in back. Neuro: Level of Consciousness is awake, alert, obeys commands, Oriented to person, place, time, situation. Cardiovascular: Heart tones S1 S2 Capillary refill < 3 seconds Patient's skin is warm and dry. Respiratory: Airway is patent Respiratory effort is even, unlabored, Respiratory pattern is regular, symmetrical, Breath sounds are clear bilaterally. GI: No signs and/or symptoms were reported involving the gastrointestinal system. Abdomen is round non-distended, obese, Bowel sounds present X 4 quads. : No signs and/or symptoms were reported regarding the genitourinary system. EENT: No signs and/or symptoms were reported regarding the EENT system. Derm: No signs and/or symptoms reported regarding the dermatologic system. Musculoskeletal: Circulation, motion, and sensation intact. Range of motion: intact in all extremities. 18:43 Reassessment: provider at bedside at this time. tw2 19:00 Reassessment: Patient appears in no apparent distress at this time. Patient and/or jb4 family updated on plan of care and expected duration. Pain level reassessed. Patient is alert, oriented x 3, equal unlabored respirations, skin warm/dry/pink. 19:13 Reassessment: Verified morphine order with physician. jb4 19:53 Reassessment: Patient appears in no apparent distress at this time. Patient and/or jb4 family updated on plan of care and expected duration. Pain level reassessed. Patient is alert, oriented x 3, equal unlabored respirations, skin warm/dry/pink. PT on 15 minute shot time. 20:20 Reassessment: Patient appears in no apparent distress at this time. Patient and/or jb4 family updated on plan of care and expected duration. Pain level reassessed. Patient is alert, oriented x 3, equal unlabored respirations, skin warm/dry/pink. Patient states feeling better. Patient states symptoms have improved. Vital Signs: 16:24 BP 142 / 87; Pulse 75; Resp 16 S; Temp 97.9(TE); Pulse Ox 99% on R/A; Weight 79.83 kg ca1 (R); Height 5 ft. 2 in. (157.48 cm) (R); Pain 5/10; 18:46 BP 167 / 84; Pulse 60; Resp 17; Pulse Ox 100% on R/A; tw2 19:45 BP 139 / 85; Pulse 57; Resp 16; Pulse Ox 100% on R/A; jb4 20:15 BP 142 / 79; Pulse 60; Resp 16; Pulse Ox 99% on R/A; jb4 16:24 Body Mass Index 32.19 (79.83 kg, 157.48 cm) ca1 ED Course: 15:52 Patient arrived in ED. mr 16:27 Triage completed. ca1 16:28 Arm band placed on right wrist. ca1 18:30 Placed in gown. Bed in low position. Pulse ox on. NIBP on. Warm blanket given. tw2 18:40 Renee Siegel RN is Primary Nurse. tw2 18:41 Raymundo Almodovar MD is Attending Physician. marv 19:03 Brandt Braun MD is Referral Physician. marv 19:04 Edson Santana MD is Referral Physician. marv 19:07 Report given to FRED Ca. tw2 20:15 No provider procedures requiring assistance completed. Patient did not have IV access jb4 during this emergency room visit. Administered Medications: 18:58 Drug: Valium 5 mg Route: PO; tw2 19:20 Follow up: Response: No adverse reaction; Pain is decreased jb4 19:53 Drug: morphine 10 mg {Note: RASS score 0.} Route: IM; Site: right gluteus; jb4 20:21 Follow up: Response: No adverse reaction jb4 19:53 Drug: Ondansetron (Zofran) 4 mg Route: PO; jb4 20:15 Follow up: Response: No adverse reaction; Pain is decreased; RASS: Alert and Calm (0) jb4 Outcome: 19:07 Discharge ordered by . marv 20:15 Discharged to home via wheelchair, with family. jb4 20:15 Condition: stable 20:15 Discharge instructions given to patient, Instructed on discharge instructions, follow up and referral plans. medication usage, Demonstrated understanding of instructions, follow-up care, medications, Prescriptions given X 3. 20:22 Patient left the ED. jb4 Signatures: Raymundo Almodovar MD MD cha Rivera, Mary mr Renee Siegel, RN RN tw2 Brandt Bearden, RN RN jb4 Citlaly Infante RN RN ca1
--- NOTE | 2020-02-04 19:09 | EDPHYS ---
Physician Documentation [facility] Name: Jojo Aragon Age: 69 yrs Sex: Female : 1950 Arrival Date: 02/04/2020 Time: 15:52 Bed 15 Private MD: ED Physician Raymundo Almodovar HPI: 02/03 18:57 This 69 yrs old Female presents to ER via Wheelchair with complaints of Back marv Pain. 18:57 The patient presents with pain that is acute, with no known mechanism of injury, that marv is chronic, with no known mechanism of injury, and decreased range of motion. The symptoms are located in the thoracic area. Onset: The symptoms/episode began/occurred 2 day(s) ago. The pain does not radiate. Associated signs and symptoms: The patient has no apparent associated signs or symptoms. The problem was sustained from unknown cause. Modifying factors: The patient symptoms are alleviated by remaining still, rest. Severity of symptoms: At their worst the symptoms were mild, moderate, in the emergency department the symptoms are unchanged. Historical: - Allergies: 16:28 Bactrim; ca1 16:28 Codeine; ca1 16:28 Demerol; ca1 16:28 Toradol; ca1 - Home Meds: 16:28 [place] Thyroid 60 mg Oral tab [Active]; candesartan 4 mg Oral tab 1 tab once daily ca1 [Active]; inhaler [Active]; Lasix 20 mg Oral tab 1 tab once daily [Active]; tramadol 50 mg Oral tab [Active]; - PMHx: 16:28 COPD; Fibromyalgia; Hypertension; ca1 - PSHx: 16:28 Hysterectomy; Cholecystectomy; Tonsillectomy; Hernia repair; Gastric Bypass; ca1 - Immunization history:: Adult Immunizations up to date, Flu vaccine is not up to date. - Social history:: Smoking status: Patient denies any tobacco usage or history of. - Family history:: not pertinent. ROS: 18:57 Constitutional: Negative for fever, chills, and weight loss, Eyes: Negative for injury, marv pain, redness, and discharge, ENT: Negative for injury, pain, and discharge, Neck: Negative for injury, pain, and swelling, Cardiovascular: Negative for chest pain, palpitations, and edema, Respiratory: Negative for shortness of breath, cough, wheezing, and pleuritic chest pain, Abdomen/GI: Negative for abdominal pain, nausea, vomiting, diarrhea, and constipation, : Negative for injury, bleeding, discharge, and swelling, MS/Extremity: Negative for injury and deformity, Skin: Negative for injury, rash, and discoloration, Neuro: Negative for headache, weakness, numbness, tingling, and seizure, Psych: Negative for depression, anxiety, suicide ideation, homicidal ideation, and hallucinations, Allergy/Immunology: Negative for hives, rash, and allergies, Endocrine: Negative for neck swelling, polydipsia, polyuria, polyphagia, and marked weight changes, Hematologic/Lymphatic: Negative for swollen nodes, abnormal bleeding, and unusual bruising. 18:57 Back: Positive for decreased range of motion, pain at rest, of the thoracic area. Exam: 18:57 Constitutional: This is a well developed, well nourished patient who is awake, alert, marv and in no acute distress. Head/Face: Normocephalic, atraumatic. Eyes: Pupils equal round and reactive to light, extra-ocular motions intact. Lids and lashes normal. Conjunctiva and sclera are non-icteric and not injected. Cornea within normal limits. Periorbital areas with no swelling, redness, or edema. ENT: Nares patent. No nasal discharge, no septal abnormalities noted. Tympanic membranes are normal and external auditory canals are clear. Oropharynx with no redness, swelling, or masses, exudates, or evidence of obstruction, uvula midline. Mucous membranes moist. Neck: Trachea midline, no thyromegaly or masses palpated, and no cervical lymphadenopathy. Supple, full range of motion without nuchal rigidity, or vertebral point tenderness. No Meningismus. Chest/axilla: Normal chest wall appearance and motion. Nontender with no deformity. No lesions are appreciated. Cardiovascular: Regular rate and rhythm with a normal S1 and S2. No gallops, murmurs, or rubs. Normal PMI, no JVD. No pulse deficits. Respiratory: Lungs have equal breath sounds bilaterally, clear to auscultation and percussion. No rales, rhonchi or wheezes noted. No increased work of breathing, no retractions or nasal flaring. Abdomen/GI: Soft, non-tender, with normal bowel sounds. No distension or tympany. No guarding or rebound. No evidence of tenderness throughout. Female : Normal external genitalia. Skin: Warm, dry with normal turgor. Normal color with no rashes, no lesions, and no evidence of cellulitis. 18:57 Back: pain, that is mild, ROM is painful, normal spinal alignment noted, CVA tenderness, is absent, vertebral tenderness, is not appreciated, muscle spasm, is appreciated in the left scapular area, right scapular area, left subscapular area, right subscapular area and thoracic area. 18:57 Musculoskeletal/extremity: DVT Exam: No signs of deep vein thrombosis. no pain, no swelling, no tenderness, negative Homans' sign noted on exam, no appreciated bluish discoloration, no erythema, no increased warmth. 19:09 ECG was reviewed by the Attending Physician. [facility] Vital Signs: 16:24 BP 142 / 87; Pulse 75; Resp 16 S; Temp 97.9(TE); Pulse Ox 99% on R/A; Weight 79.83 kg ca1 (R); Height 5 ft. 2 in. (157.48 cm) (R); Pain 5/10; 18:46 BP 167 / 84; Pulse 60; Resp 17; Pulse Ox 100% on R/A; tw2 19:45 BP 139 / 85; Pulse 57; Resp 16; Pulse Ox 100% on R/A; jb4 20:15 BP 142 / 79; Pulse 60; Resp 16; Pulse Ox 99% on R/A; jb4 16:24 Body Mass Index 32.19 (79.83 kg, 157.48 cm) ca1 MDM: 18:42 Patient medically screened. [facility] 19:01 Differential diagnosis: Obesity ruptured disc, sprain. Data reviewed: vital signs, [facility] nurses notes, old medical records, lab test result(s), EKG, radiologic studies. Data interpreted: monitoring coordinator: not applicable for this patient encounter. rate is 60 beats/min, Pulse oximetry: on room air is 100 %. Test interpretation: by ED physician or midlevel provider: ECG, plain radiologic studies. Counseling: I had a detailed discussion with the patient and/or guardian regarding: the historical points, exam findings, and any diagnostic results supporting the discharge/admit diagnosis, lab results, radiology results, the need for outpatient follow up, for definitive care, an child care associate teacher, a orthopedic surgeon, a urologist. 02/03 18:57 Order name: EKG; Complete Time: 18:57 [facility] 02/03 18:57 Order name: EKG - Nurse/Tech; Complete Time: 18:58 [facility] EC:09 Rate is 56 beats/min. Rhythm is regular. QRS [place] is Normal. [place] interval is normal. QRS marv interval is normal. QT interval is normal. No Q waves. T waves are Normal. No ST changes noted. Clinical impression: NSR w/ Non-specific ST/T Changes and No evidence of ischemia. Interpreted by me. Reviewed by me. Administered Medications: 18:58 Drug: Valium 5 mg Route: PO; tw2 19:20 Follow up: Response: No adverse reaction; Pain is decreased jb4 19:53 Drug: morphine 10 mg {Note: RASS score 0.} Route: IM; Site: right gluteus; jb4 20:21 Follow up: Response: No adverse reaction jb4 19:53 Drug: Ondansetron (Zofran) 4 mg Route: PO; jb4 20:15 Follow up: Response: No adverse reaction; Pain is decreased; RASS: Alert and Calm (0) jb4 Disposition: 02/04/20 19:07 Discharged to Home. Impression: Low back pain, Strain of muscle and tendon of back wall of thorax, Other specified disorders of kidney and ureter - 2 cm left renal mass, renal cell carcinoma. - Condition is Stable. - Discharge Instructions: Back Pain, Adult, Chronic Back Pain, Musculoskeletal Pain, Back Pain, Adult, [id number]. - Prescriptions for Tramadol 50 mg Oral Tablet - take 1 tablet by ORAL route every 8 hours as needed; 20 tablet. Medrol (Damián) 4 mg Oral Tablets, Dose Pack - take 1 tablet by ORAL route as directed - follow package instructions; 1 packet. Valium 2 mg Oral Tablet - take 1 tablet by ORAL route every 8 hours As needed; 20 tablet. - Medication Reconciliation Form, Thank You Letter, Antibiotic Education, Prescription Opioid Use form. - Follow up: Private Physician; When: 2 - 3 days; Reason: Recheck today's complaints, Continuance of care, Re-evaluation by your physician. Follow up: Brandt Braun MD; When: 2 - 3 days; Reason: Recheck today's complaints, Re-evaluation by your physician. Follow up: Edson Santana MD; When: 2 - 3 days; Reason: Recheck today's complaints, Re-evaluation by your physician. - Problem is new. - Symptoms have improved. Signatures: Raymundo Almodovar MD MD cha Wise, Tara, RN RN tw2 Brandt Bearden, RN RN jb4 Citlaly Infante RN RN ca1 Corrections: (The following items were deleted from the chart) 20:22 19:07 02/04/2020 19:07 Discharged to Home. Impression: Low back pain; Strain of muscle jb4 and tendon of back wall of thorax; Other specified disorders of kidney and ureter - 2 cm left renal mass, renal cell carcinoma. Condition is Stable. Forms are Medication Reconciliation Form, Thank You Letter, Antibiotic Education, Prescription Opioid Use. Follow up: Private Physician; When: 2 - 3 days; Reason: Recheck today's complaints, Continuance of care, Re-evaluation by your physician. Follow up: Brandt Braun; When: 2 - 3 days; Reason: Recheck today's complaints, Re-evaluation by your physician. Follow up: Edson Santana; When: 2 - 3 days; Reason: Recheck today's complaints, Re-evaluation by your physician. Problem is new. Symptoms have improved. marv
[2020-02-04] MEDS ORDERED: MORPHINE 4 MG/ML SYR ONE (19:30)
[2020-02-04] MEDS ORDERED: MORPHINE 2 MG/ML SYR ONE (19:30)
[2020-02-04] MEDS ORDERED: ONDANSETRON 4 MG (ODT) TAB ONE (19:58)
[2020-02-05 01:51] VITALS: TEMP 97.9
[2020-02-05 01:56] VITALS: BP 142/79; O2SAT 99
--- NOTE | 2020-02-05 18:06 | EKG ---
Test Date: 2020-02-04 Test Time: 19:00:18 Director Sales And Marketing: SHELLY MEASUREMENT RESULTS: Intervals: Rate: 56 NC: 154 QRSD: 70 QT: 428 QTc: 413 [place]: P: 41 NC: 154 QRS: 14 T: 44 INTERPRETIVE STATEMENTS: Sinus bradycardia Otherwise normal ECG Compared to ECG 02/01/2020 20:14:17 No significant changes Electronically Signed On 02-05-20 18:02:47 ENGINEERING LIBRARIAN by Jose Bingham
== END 2020-02-04 20:22 | disposition home or self-care (01) ==
LOC: ER 15:46
DX: S29.012A Strain of muscle and tendon of back wall of thorax, initial encounter (principal); N28.89 Other specified disorders of kidney and ureter; C64.9 Malignant neoplasm of unspecified kidney, except renal pelvis; I10 Essential (primary) hypertension; J44.9 Chronic obstructive pulmonary disease, unspecified; Z88.1 Allergy status to other antibiotic agents; Z88.5 Allergy status to narcotic agent; Z88.6 Allergy status to analgesic agent; Z98.84 Bariatric surgery status
CPT/HCPCS: 93005; 96372; 99283; J2270

== ENCOUNTER 2020-05-10 15:22 | Emergency (ER) | payer OTHER ==
[2020-05-10 17:45] LABS: SARS-COV-2 RT PCR NEGATIVE (NEGATIVE)
[2020-05-10] MEDS ORDERED: dexAMETHasone 10 MG/ML VIAL ONE (18:14)
--- NOTE | 2020-05-10 18:41 | EDPHYS ---
Physician Documentation [facility] Name: Jojo Aragon Age: 69 yrs Sex: Female : 1950 Arrival Date: 05/10/2020 Time: 15:25 Bed 17 Private MD: ED Physician Jermaine Beltrán HPI: 05/10 16:46 This 69 yrs old Female presents to ER via Ambulatory with complaints of Sore jmm Throat. 16:46 The patient presents with sore throat. Onset: The symptoms/episode began/occurred jmm gradually, 2 day(s) ago. Modifying factors: The symptoms are alleviated by nothing, the symptoms are aggravated by nothing. Associated signs and symptoms: Pertinent positives: chills, cough, fever, Sore throat. The patient has experienced similar episodes in the past, with strep infection. Historical: - Allergies: 15:26 Bactrim; ll1 15:26 Codeine; ll1 15:26 Demerol; ll1 15:26 Toradol; ll1 - PMHx: 15:26 COPD; Fibromyalgia; Hypertension; ll1 - PSHx: 15:26 Hysterectomy; Cholecystectomy; Tonsillectomy; Hernia repair; Gastric Bypass; ll1 - Immunization history:: Flu vaccine is not up to date. - Social history:: Smoking status: Patient denies any tobacco usage or history of. ROS: 16:46 Constitutional: Positive for body aches, fever. jmm 16:46 ENT: Positive for sore throat. 16:46 Respiratory: Positive for cough. 16:46 All other systems are negative. Exam: 16:46 Constitutional: This is a well developed, well nourished patient who is awake, alert, jmm and in no acute distress. Head/Face: atraumatic. Eyes: EOMI, no conjunctival erythema appreciated 16:46 Neck: Trachea midline, Supple Chest/axilla: Normal chest wall appearance and motion. Cardiovascular: Regular rate and rhythm. No edema appreciated Respiratory: Normal respirations, no respiratory distress appreciated Abdomen/GI: Non distended, soft Back: Normal ROM Skin: General appearance color normal MS/ Extremity: Moves all extremities, no obvious deformities appreciated, no edema noted to the lower extremities Neuro: Awake and alert, normal gait Psych: Behavior is normal, Mood is normal, Patient is cooperative and pleasant 16:46 ENT: Posterior pharynx: is normal. Vital Signs: 15:26 BP 135 / 70; Pulse 62; Resp 17; Temp 97.8; Pulse Ox 99% ; Weight 80.29 kg; Height 5 ft. ll1 2 in. (157.48 cm); Pain 6/10; 18:03 BP 149 / 54; Pulse 58; Resp 16; Pulse Ox 99% on R/A; ae4 15:26 Body Mass Index 32.37 (80.29 kg, 157.48 cm) ll1 MDM: 17:09 Patient medically screened. [facility] 18:39 Data reviewed: vital signs, nurses notes. Counseling: I had a detailed discussion with [facility] the patient and/or guardian regarding: the historical points, exam findings, and any diagnostic results supporting the discharge/admit diagnosis, lab results, the need for outpatient follow up, to return to the emergency department if symptoms worsen or persist or if there are any questions or concerns that arise at home. ED course: Patient is alert and non toxic in appearance in the ED. No signs of resp distress. Patient advised to follow up with pcp and otherwise given strict return precautions. patient understood and agrees with the plan of care. . 05/10 16:45 Order name: Strep [facility] 05/10 16:45 Order name: Flu [facility] 05/10 16:45 Order name: COVID-19 : Document "Date of Symptom Onset" if Symptomatic. [facility] 05/10 17:02 Order name: Influenza Screen (A [facility] 05/10 17:02 Order name: CORONAVIRUS [facility] 05/10 17:20 Order name: Group A Streptococcus Rapid Sc; Complete Time: 17:20 [facility] 05/10 17:45 Order name: COVID-19/FLU A+B; Complete Time: 17:50 EDVT Administered Medications: 17:55 Drug: Decadron 10 mg Route: IM; Site: right gluteus; ae4 19:22 Follow up: Response: No adverse reaction ae4 Disposition: 05/10/20 18:40 Discharged to Home. Impression: Acute upper respiratory infection, unspecified. - Condition is Stable. - Discharge Instructions: Upper Respiratory Infection, Adult. - Medication Reconciliation Form, Thank You Letter, Antibiotic Education, Prescription Opioid Use form. - Follow up: Private Physician; When: 2 - 3 days; Reason: Recheck today's complaints, Continuance of care, Re-evaluation by your physician. Addendum: 05/15/2020 19:21 Co-signature as Attending Physician, Jermaine Beltrán MD I agree with the assessment and t w4 plan of care. Signatures: Dispatcher [employer] EDAlfred Shay PA PA jmm Baxter, Heather, RN RN Jermaine Beltrán MD MD tw4 Elliott Hunter RN RN ae4 Obinna Jaramillo RN RN ll1 Corrections: (The following items were deleted from the chart) 05/10 18:53 18:40 05/10/2020 18:40 Discharged to Home. Impression: Acute upper respiratory hb infection, unspecified. Condition is Stable. Forms are Medication Reconciliation Form, Thank You Letter, Antibiotic Education, Prescription Opioid Use. Follow up: Private Physician; When: 2 - 3 days; Reason: Recheck today's complaints, Continuance of care, Re-evaluation by your physician. anna
--- NOTE | 2020-05-10 18:41 | ER ---
Nurse's Notes [facility] Name: Jojo Aragon Age: 69 yrs Sex: Female : 1950 Arrival Date: 05/10/2020 Time: 15:25 Bed 17 Private MD: Diagnosis: Acute upper respiratory infection, unspecified Presentation: 05/10 15:26 Chief complaint: Patient states: Sore throat, JARAMILLO, body aches, nausea for 2 days. No ll1 cough or fever. Coronavirus screen: Client denies travel out of the [place] in the last 14 days. chills, headache, nausea, sore throat, Client presents with at least one sign or symptom that may indicate coronavirus-19. Standard/surgical mask placed on the client. Ebola Screen: Patient denies travel to an Ebola-affected area in the 21 days before illness onset. Initial Sepsis Screen: Does the patient meet any 2 criteria? No. Patient's initial sepsis screen is negative. Does the patient have a suspected source of infection? Yes: Other: sore throat. Risk Assessment: Do you want to hurt yourself or someone else? Patient reports no desire to harm self or others. Onset of symptoms was May 09, 2020. 15:26 Method Of Arrival: Ambulatory ll1 15:26 Acuity: WOODY 4 ll1 Triage Assessment: 15:25 General: Appears in no apparent distress. Behavior is calm, cooperative. ae4 Historical: - Allergies: 15:26 Bactrim; ll1 15:26 Codeine; ll1 15:26 Demerol; ll1 15:26 Toradol; ll1 - PMHx: 15:26 COPD; Fibromyalgia; Hypertension; ll1 - PSHx: 15:26 Hysterectomy; Cholecystectomy; Tonsillectomy; Hernia repair; Gastric Bypass; ll1 - Immunization history:: Flu vaccine is not up to date. - Social history:: Smoking status: Patient denies any tobacco usage or history of. Screenin:07 Abuse screen: Denies threats or abuse. Nutritional screening: No deficits noted. ae4 Tuberculosis screening: No symptoms or risk factors identified. Fall Risk None identified. Assessment: 15:30 General: Appears in no apparent distress. comfortable, Behavior is calm, cooperative. ae4 Pain: Complains of pain in uvula, left aspect of posterior pharynx and right aspect of posterior pharynx. Neuro: Level of Consciousness is awake, alert, obeys commands, Oriented to person, place, time, situation, Appropriate for age. Cardiovascular: Patient's skin is warm and dry. Respiratory: Airway is patent Respiratory effort is even, unlabored, relaxed, Respiratory pattern is regular, symmetrical, Breath sounds are clear bilaterally. GI: No signs and/or symptoms were reported involving the gastrointestinal system. GI: Reports nausea. : No signs and/or symptoms were reported regarding the genitourinary system. EENT: Throat is pink. Derm: No signs and/or symptoms reported regarding the dermatologic system. Skin is pale. Musculoskeletal: No signs and/or symptoms reported regarding the musculoskeletal system. 18:03 Reassessment: Patient appears in no apparent distress at this time. Patient and/or ae4 family updated on plan of care and expected duration. Pain level reassessed. 18:07 Respiratory: Airway is patent Respiratory effort is even, unlabored. ae4 Vital Signs: 15:26 BP 135 / 70; Pulse 62; Resp 17; Temp 97.8; Pulse Ox 99% ; Weight 80.29 kg; Height 5 ft. ll1 2 in. (157.48 cm); Pain 6/10; 18:03 BP 149 / 54; Pulse 58; Resp 16; Pulse Ox 99% on R/A; ae4 15:26 Body Mass Index 32.37 (80.29 kg, 157.48 cm) ll1 ED Course: 15:25 Patient arrived in ED. ll1 15:25 Arm band placed on. ll1 15:30 Triage completed. ll1 15:45 Placed in gown. Bed in low position. Call light in reach. Side rails up X 1. Pulse ox ae4 on. NIBP on. Warm blanket given. 16:13 Alfred Ribeiro PA is PHCP. [facility] 16:13 Jermaine Beltrán MD is Attending Physician. [facility] 16:39 Elliott Hunter, FRED is Primary Nurse. ae4 18:52 No provider procedures requiring assistance completed. Patient did not have IV access hb during this emergency room visit. Administered Medications: 17:55 Drug: Decadron 10 mg Route: IM; Site: right gluteus; ae4 19:22 Follow up: Response: No adverse reaction ae4 Outcome: 18:40 Discharge ordered by MD. castillo 18:52 Discharged to home ambulatory. 18:52 Condition: stable 18:52 Discharge instructions given to patient, Instructed on discharge instructions, follow up and referral plans. medication usage, Demonstrated understanding of instructions, follow-up care, medications. 18:53 Patient left the ED. Signatures: Alfred Ribeiro PA PA jmm Baxter, Heather RN RN Elliott Hunter RN RN ae4 Obinna Jaramillo RN RN ll1
[2020-05-10 19:08] VITALS: TEMP 97.8; O2SAT 99
[2020-05-10 19:09] VITALS: BP 149/54
== END 2020-05-10 18:53 | disposition home or self-care (01) ==
LOC: ER 15:22
DX: J06.9 Acute upper respiratory infection, unspecified (principal); Z20.822 Contact with and (suspected) exposure to COVID-19; I10 Essential (primary) hypertension; Z88.1 Allergy status to other antibiotic agents; Z88.5 Allergy status to narcotic agent
CPT/HCPCS: 87070; 87081; 0240U; 96372; 99283; J1100

== ENCOUNTER 2020-07-03 00:37 | Emergency (ER) | payer OTHER ==
[2020-07-03 01:53] LABS: Absolute Lymphocytes (CBC) 1.3 K/uL (0.7-4.9); Basophils % 0.5 % (0-1.3); Lymphocytes % 21.6 % (15.3-44.8); MPV 10.2 fL (7.6-11.3); RBC Red Blood Cell Count 3.73 M/uL (3.86-4.86)
[2020-07-03 02:09] LABS: ALT/SGPT 27 U/L (12-78); AST/SGOT 19 U/L (15-37); Albumin 3.2 g/dL (3.4-5.0); Alkaline Phosphatase 149 U/L (45-117); BUN Blood Urea Nitrogen 17 mg/dL (7-18); Bicarbonate 27 mmol/L (21-32); Bilirubin Direct 0.1 mg/dL (0-0.2); Bilirubin Total 0.4 mg/dL (0.2-1.0); Glucose Level 123 mg/dL (74-106); Lipase 37 U/L (73-393); Potassium 3.8 mmol/L (3.5-5.1); Protein, Total 6.2 g/dL (6.4-8.2); Sodium Level 143 mmol/L (136-145)
[2020-07-03] MEDS ORDERED: DIAZEPAM 10 MG/2 ML INJ SYRINGE ONE (02:10)
[2020-07-03] MEDS ORDERED: MORPHINE 4 MG/ML SYR ONE ×2 (02:10→03:10)
[2020-07-03] MEDS ORDERED: NA CHLORIDE 0.9% 1,000 ML ONE (02:10)
[2020-07-03] MEDS ORDERED: ONDANSETRON 4 MG/2 ML VIAL ONE (02:10)
[2020-07-03 03:43] LABS: Urine Blood 3+ (Negative); Urine Glucose Negative (Negative); Urine Protein Negative (Negative); Urine pH 7.5 (5.0-7.0)
[2020-07-03] MEDS ORDERED: CEFTRIAXONE/SWI 1gm 1 GM/10 ML SYR ONE (04:46)
--- NOTE | 2020-07-03 04:52 | ER ---
Nurse's Notes [facility] Name: Jojo Aragon Age: 69 yrs Sex: Female : 1950 Arrival Date: 07/03/2020 Time: 00:40 Bed 16 Private MD: Diagnosis: Calculus of ureter-left;Cystitis, unspecified Presentation: 07/03 01:12 Chief complaint: Patient states: back pain that started 45 minutes ago, reports burning em with urination and nausea, also report having a cyst on kidney, denies fever. Coronavirus screen: Client denies travel out of the [place] in the last 14 days. Ebola Screen: Patient negative for fever greater than or equal to 101.5 degrees Fahrenheit, and additional compatible Ebola Virus Disease symptoms Patient denies exposure to infectious person. Patient denies travel to an Ebola-affected area in the 21 days before illness onset. No symptoms or risks identified at this time. Initial Sepsis Screen: Does the patient meet any 2 criteria? No. Patient's initial sepsis screen is negative. Does the patient have a suspected source of infection? No. Patient's initial sepsis screen is negative. Risk Assessment: Do you want to hurt yourself or someone else? Patient reports no desire to harm self or others. Onset of symptoms was July 03, 2020. 01:12 Method Of Arrival: Wheelchair em 01:12 Acuity: WOODY 3 em Historical: - Allergies: 01:14 Bactrim; em 01:14 Codeine; em 01:14 Demerol; em 01:14 Toradol; em - PMHx: 01:14 COPD; Fibromyalgia; Hypertension; em - PSHx: 01:14 Hysterectomy; Hernia repair; Cholecystectomy; Tonsillectomy; Gastric Bypass; em - Immunization history:: Adult Immunizations up to date. - Social history:: Smoking status: Patient denies any tobacco usage or history of. - Family history:: not pertinent. Screenin:05 Abuse screen: Denies threats or abuse. Nutritional screening: No deficits noted. jb4 Tuberculosis screening: No symptoms or risk factors identified. Fall Risk None identified. Assessment: 01:05 General: Appears in no apparent distress. uncomfortable, Behavior is calm, cooperative, jb4 appropriate for age. Pain: Complains of pain in back Pain does not radiate. Pain currently is 8 out of 10 on a pain scale. Neuro: Level of Consciousness is awake, alert, obeys commands, Oriented to person, place, time, situation. Cardiovascular: Patient's skin is warm and dry. Respiratory: Airway is patent Respiratory effort is even, unlabored, Respiratory pattern is regular, symmetrical. GI: No signs and/or symptoms were reported involving the gastrointestinal system. : No signs and/or symptoms were reported regarding the genitourinary system. EENT: No signs and/or symptoms were reported regarding the EENT system. Derm: Skin is intact, Skin is pink, warm \T\ dry. Musculoskeletal: Circulation, motion, and sensation intact. Range of motion:. 02:00 Reassessment: Patient appears in no apparent distress at this time. Patient and/or jb4 family updated on plan of care and expected duration. Pain level reassessed. Patient is alert, oriented x 3, equal unlabored respirations, skin warm/dry/pink. 03:00 Reassessment: Patient appears in no apparent distress at this time. Patient and/or jb4 family updated on plan of care and expected duration. Pain level reassessed. Patient is alert, oriented x 3, equal unlabored respirations, skin warm/dry/pink. 04:00 Reassessment: Patient appears in no apparent distress at this time. Patient and/or jb4 family updated on plan of care and expected duration. Pain level reassessed. Patient is alert, oriented x 3, equal unlabored respirations, skin warm/dry/pink. 05:27 Reassessment: Patient appears in no apparent distress at this time. Patient and/or jb4 family updated on plan of care and expected duration. Pain level reassessed. Patient is alert, oriented x 3, equal unlabored respirations, skin warm/dry/pink. PT reports allergy to NSAIDS and already being on Tramadol. Declined the need for any other prescription for pain. Vital Signs: 01:12 BP 148 / 50; Pulse 59; Resp 18; Temp 98.1; Pulse Ox 99% on R/A; Weight 79.38 kg; Height em 5 ft. 2 in. (157.48 cm); Pain 7/10; 02:00 BP 137 / 75; Pulse 61; Resp 16; Pulse Ox 98% on R/A; jb4 03:00 BP 144 / 74; Pulse 70; Resp 16; Pulse Ox 98% on R/A; jb4 04:00 BP 135 / 75; Pulse 74; Resp 18; Pulse Ox 98% on R/A; jb4 01:12 Body Mass Index 32.01 (79.38 kg, 157.48 cm) ED Course: 00:40 Patient arrived in ED. am4 01:04 Vernon Duke MD is Attending Physician. ma2 01:05 Patient has correct armband on for positive identification. Side rails up X 1. Pulse ox jb4 on. NIBP on. 01:14 Triage completed. em 01:14 Arm band placed on. em 01:36 Brandt Bearden RN is Primary Nurse. jb4 01:42 Inserted saline lock: 22 gauge in left antecubital area, using aseptic technique. Blood ds4 collected. 02:49 CT Abd/Pelvis - IV Contrast Only In Process Unspecified. EDMS 04:51 Gerardo Fishman MD is Referral Physician. ma2 05:28 No provider procedures requiring assistance completed. IV discontinued, intact, jb4 bleeding controlled, No redness/swelling at site. Pressure dressing applied. Administered Medications: 02:13 Drug: Zofran (Ondansetron) 4 mg Route: IVP; Site: left antecubital; jb4 02:30 Follow up: Response: No adverse reaction jb4 02:15 Drug: morphine 4 mg Route: IVP; Site: left antecubital; jb4 02:30 Follow up: Response: No adverse reaction; Marked relief of symptoms; Pain is decreased; jb4 RASS: Alert and Calm (0) 02:16 Drug: Valium (diazepam) 2 mg Route: IVP; Site: left antecubital; jb4 02:30 Follow up: Response: No adverse reaction; Marked relief of symptoms; Pain is decreased jb4 02:17 Drug: NS 0.9% 1000 ml Route: IV; Rate: 1 bolus; Site: left antecubital; jb4 03:00 Follow up: Response: No adverse reaction; IV Status: Completed infusion; IV Intake: jb4 1000ml 02:51 CANCELLED (na): Zofran (Ondansetron) 4 mg IVP once; over 2 minutes ma2 02:57 Drug: morphine 4 mg Route: IVP; Site: left antecubital; jb4 03:30 Follow up: Response: No adverse reaction; Marked relief of symptoms; Pain is decreased; jb4 RASS: Alert and Calm (0) 04:36 Drug: Rocephin (cefTRIAXone) 1 grams Route: IV; Rate: calculated rate; Site: left jb4 antecubital; Intake: 03:00 IV: 1000ml; Total: 1000ml. jb4 Outcome: 04:51 Discharge ordered by MD. prakash 05:28 Discharged to home ambulatory. jb4 05:28 Condition: stable 05:28 Discharge instructions given to patient, Instructed on discharge instructions, follow up and referral plans. medication usage, Demonstrated understanding of instructions, follow-up care, medications, Prescriptions given X 2. 05:32 Patient left the ED. jb4 Signatures: Dispatcher [employer] Austin Silva, RN RN Hoang Bingham 4 Brandt Bearden RN RN jb4 Vernon Duke MD MD ma2 Aurora Griffin am4 Corrections: (The following items were deleted from the chart) 05:32 05:27 Reassessment: Patient appears in no apparent distress at this time. Patient jb4 and/or family updated on plan of care and expected duration. Pain level reassessed. Patient is alert, oriented x 3, equal unlabored respirations, skin warm/dry/pink. jb4
--- NOTE | 2020-07-03 04:52 | EDPHYS ---
Physician Documentation [facility] Name: Jojo Aragon Age: 69 yrs Sex: Female : 1950 Arrival Date: 07/03/2020 Time: 00:40 Bed 16 Private MD: ED Physician Vernon Duke HPI: 07/03 01:37 This 69 yrs old Female presents to ER via Wheelchair with complaints of Back ma2 Pain. 01:37 The patient presents with pain that is acute. Onset: The symptoms/episode ma2 began/occurred gradually, 5 day(s) ago. Associated signs and symptoms: Pertinent negatives: chest pain, constipation, fever, hematuria. Severity of symptoms: At their worst the symptoms were mild, in the emergency department the symptoms are unchanged. The patient has not experienced similar symptoms in the past. Historical: - Allergies: 01:14 Bactrim; em 01:14 Codeine; em 01:14 Demerol; em 01:14 Toradol; em - PMHx: 01:14 COPD; Fibromyalgia; Hypertension; em - PSHx: 01:14 Hysterectomy; Hernia repair; Cholecystectomy; Tonsillectomy; Gastric Bypass; em - Immunization history:: Adult Immunizations up to date. - Social history:: Smoking status: Patient denies any tobacco usage or history of. - Family history:: not pertinent. ROS: 01:37 Constitutional: Negative for fever, chills, and weight loss. ma2 01:37 All other systems are negative. Exam: 01:37 Constitutional: This is a well developed, well nourished patient who is awake, alert, ma2 and in no acute distress. Chest/axilla: Normal chest wall appearance and motion. Nontender with no deformity. No lesions are appreciated. Cardiovascular: Regular rate and rhythm with a normal S1 and S2. No gallops, murmurs, or rubs. Normal PMI, no JVD. No pulse deficits. Respiratory: Lungs have equal breath sounds bilaterally, clear to auscultation and percussion. No rales, rhonchi or wheezes noted. No increased work of breathing, no retractions or nasal flaring. Abdomen/GI: Soft, non-tender, with normal bowel sounds. No distension or tympany. No guarding or rebound. No evidence of tenderness throughout. Back: No spinal tenderness. No costovertebral tenderness. Full range of motion. MS/ Extremity: Pulses equal, no cyanosis. Neurovascular intact. Full, normal range of motion. Neuro: Awake and alert, GCS 15, oriented to person, place, time, and situation. Cranial nerves II-XII grossly intact. Motor strength 5/5 in all extremities. Sensory grossly intact. Cerebellar exam normal. Normal gait. Vital Signs: 01:12 BP 148 / 50; Pulse 59; Resp 18; Temp 98.1; Pulse Ox 99% on R/A; Weight 79.38 kg; Height em 5 ft. 2 in. (157.48 cm); Pain 7/10; 02:00 BP 137 / 75; Pulse 61; Resp 16; Pulse Ox 98% on R/A; jb4 03:00 BP 144 / 74; Pulse 70; Resp 16; Pulse Ox 98% on R/A; jb4 04:00 BP 135 / 75; Pulse 74; Resp 18; Pulse Ox 98% on R/A; jb4 01:12 Body Mass Index 32.01 (79.38 kg, 157.48 cm) em MDM: 01:04 Patient medically screened. ma2 01:37 Differential diagnosis: Fatigue Osteoarthritis sprain, vertebral fracture. ma2 01:38 ED course: no back pain redflags or symptoms/signs of cord compression . fl2 04:51 Data reviewed: vital signs, nurses notes. Counseling: I had a detailed discussion with ma2 the patient and/or guardian regarding: the historical points, exam findings, and any diagnostic results supporting the discharge/admit diagnosis, the presence of at least one elevated blood pressure reading (>120/80) during this emergency department visit, the need for outpatient follow up. Response to treatment: the patient's symptoms have markedly improved after treatment. 07/03 01:33 Order name: Basic Metabolic Panel; Complete Time: 02:35 [facility] 07/03 01:33 Order name: CBC with Diff; Complete Time: 02:35 [facility] 07/03 01:33 Order name: CT Abd/Pelvis - IV Contrast Only fl2 07/03 01:33 Order name: Hepatic Function; Complete Time: 02:35 [facility] 07/03 01:33 Order name: Lipase; Complete Time: 02:35 [facility] 07/03 03:43 Order name: Urine Dipstick-Ancillary; Complete Time: 04:50 EDMS 07/03 01:33 Order name: IV Saline Lock; Complete Time: 01:47 ma2 07/03 01:33 Order name: Labs collected and sent; Complete Time: 01:47 ma2 07/03 01:33 Order name: Urine Dipstick-Ancillary (obtain specimen); Complete Time: 03:42 ma2 Administered Medications: 02:13 Drug: Zofran (Ondansetron) 4 mg Route: IVP; Site: left antecubital; jb4 02:30 Follow up: Response: No adverse reaction jb4 02:15 Drug: morphine 4 mg Route: IVP; Site: left antecubital; jb4 02:30 Follow up: Response: No adverse reaction; Marked relief of symptoms; Pain is decreased; 4 RASS: Alert and Calm (0) 02:16 Drug: Valium (diazepam) 2 mg Route: IVP; Site: left antecubital; jb4 02:30 Follow up: Response: No adverse reaction; Marked relief of symptoms; Pain is decreased 4 02:17 Drug: NS 0.9% 1000 ml Route: IV; Rate: 1 bolus; Site: left antecubital; jb4 03:00 Follow up: Response: No adverse reaction; IV Status: Completed infusion; IV Intake: jb4 1000ml 02:51 CANCELLED (na): Zofran (Ondansetron) 4 mg IVP once; over 2 minutes ma2 02:57 Drug: morphine 4 mg Route: IVP; Site: left antecubital; jb4 03:30 Follow up: Response: No adverse reaction; Marked relief of symptoms; Pain is decreased; 4 RASS: Alert and Calm (0) 04:36 Drug: Rocephin (cefTRIAXone) 1 grams Route: IV; Rate: calculated rate; Site: left jb4 antecubital; Disposition: 07/03/20 04:51 Discharged to Home. Impression: Calculus of ureter - left, Cystitis, unspecified. - Condition is Stable. - Discharge Instructions: Kidney Stones, Kidney Stones, [id number], Dietary Guidelines to Help Prevent Kidney Stones. - Prescriptions for Diclofenac Sodium 75 mg Oral Tablet Sustained Release - take 1 tablet by ORAL route 2 times per day; 30 tablet. Flomax 0.4 mg Oral Capsule, Sust. Release 24 hr - take 1 capsule by ORAL route once daily 2 hour following the same meal each day; 30 capsule. Cipro 500 mg Oral Tablet - take 1 tablet by ORAL route every 12 hours for 7 days; 14 tablet. - Medication Reconciliation Form, Thank You Letter, Antibiotic Education, Prescription Opioid Use form. - Follow up: Gerardo Fishman; When: Tomorrow; Reason: If symptoms return, Continuance of care. Signatures: Dispatcher [employer] Austin Silva RN RN Brandt Cedeño RN RN jb4 Vernon Duke MD MD ma2 Corrections: (The following items were deleted from the chart) 02:51 02:50 Zofran (Ondansetron) 4 mg IVP once; over 2 minutes ordered. ma2 ma2 05:32 04:51 07/03/2020 04:51 Discharged to Home. Impression: Calculus of ureter - left; jb4 Cystitis, unspecified. Condition is Stable. Discharge Instructions: Kidney Stones, Kidney Stones, [id number], Dietary Guidelines to Help Prevent Kidney Stones. Prescriptions for Diclofenac Sodium 75 mg Oral Tablet Sustained Release - take 1 tablet by ORAL route 2 times per day; 30 tablet, Flomax 0.4 mg Oral Capsule, Sust. Release 24 hr - take 1 capsule by ORAL route once daily 1/2 hour following the same meal each day; 30 capsule. and Forms are Medication Reconciliation Form, Thank You Letter, Antibiotic Education, Prescription Opioid Use. Follow up: Gerardo Fishman; When: Tomorrow; Reason: If symptoms return, Continuance of care. ma2
[2020-07-03 12:44] VITALS: TEMP 98.1
[2020-07-03 12:46] VITALS: O2SAT 98
[2020-07-03 12:49] VITALS: BP 135/75
--- NOTE | 2020-07-03 14:42 | RAD REPORT ---
EXAM DESCRIPTION: CT - Abdomen Pelvis W Contrast - 07/03/2020 6:32 am CLINICAL HISTORY: 69 years Female left flank pain TECHNIQUE: CT of the abdomen and pelvis using intravenous contrast. All CT scans at this facility us e dose modulation, iterative reconstruction, and/or weight based dosing when appropriate to reduce ra diation dose to as low as reasonably achievable. COMPARISON: 02/01/2020. FINDINGS: Lower chest: Lung bases are clear. Abdomen/Pelvis: Liver: Unchanged 4.3 cm right hepatic lobe hemangioma. Gallbladder: Status post cholecystectomy. Pancreas: Within normal limits. Spleen: Within normal limits. Kidney: Mild left hydronephrosis and hydroureter due to a 2 mm obstructing stone in the left ureterov esical junction. A 2.3 cm enhancing mass in the interpolar region of the left kidney again noted. A 1 .2 cm exophytic cyst in the right kidney. Adrenal glands: Within normal limits. Vascular structures: Atherosclerotic calcification of the aorta and its major branches. Splenic varic es are present. Bowel: Status post gastric bypass. No significant distention. Appendix: Not seen. Peritoneum: No free fluid or free air. Lymph Nodes: No lymphadenopathy. Reproductive: Status post hysterectomy. Urinary bladder: Unremarkable. Osseous structures: Multilevel degenerative changes. Multilevel vertebral body height loss in the low er thoracic spine are unchanged. Soft tissues: Postsurgical changes in the midline abdomen again noted. IMPRESSION: 1. Mild left hydronephrosis and hydroureter due to a 2 mm obstructing stone in the urete rovesical junction. 2. A 2.3 cm enhancing mass in the interpolar region of the left kidney again noted. This is suspiciou s for malignancy. Recommend Urology consult. 3. Other chronic findings as above. Electronically signed by: Rolando Juarez MD 07/03/2020 3:09 AM CDT Due to temporary technical issues with the PACS/Fluency reporting system, reports are being signed by the in house radiologists without review as a courtesy to insure prompt reporting. The interpreting radiologist is fully responsible for the content of the report.
== END 2020-07-03 05:32 | disposition home or self-care (01) ==
LOC: ER 00:37
DX: N20.1 Calculus of ureter (principal); N30.90 Cystitis, unspecified without hematuria; I10 Essential (primary) hypertension; Z88.1 Allergy status to other antibiotic agents; Z88.5 Allergy status to narcotic agent
CPT/HCPCS: 96361; 85025; 80048; 36415; 80076; 81003; 83690; 74177; 96375; 96374; 99284; Q9967; J3360; J0696; J7030; J2405

== ENCOUNTER 2022-07-28 10:36 | Emergency (ER) | payer OTHER ==
--- NOTE | 2022-07-28 11:24 | RAD REPORT ---
EXAM DESCRIPTION: CTSpine Lumbar Wo Con07/28/2022 11:07 am CLINICAL HISTORY: Back pain/radiculopathy COMPARISON: 2020 TECHNIQUE: Computed axial tomography lumbar spine was obtained with coronal and sagittal reconstruct ion. All CT scans are performed using dose optimization technique as appropriate and may include automated exposure control or mA/KV adjustment according to patient size. FINDINGS: Compression fracture involves the L2 vertebral body estimated 30% loss of height. Minimal retropulsion of bone into the spinal canal. Chronic compression deformity T11 vertebral body Osteoporosis Slight anterior subluxation of L4 on L5 and L5 on S1 No high-grade central/foraminal stenosis Small nonobstructing left renal calculi IMPRESSION: Mild to moderate compression fracture L2 vertebral body appears subacute
[2022-07-28 11:44] LABS: Absolute Lymphocytes (CBC) 2.1 K/uL (0.7-4.9); Hematocrit 31.8 % (36.0-45.0); Lymphocytes % 40.9 % (15.3-44.8); MPV 9.4 fL (7.6-11.3); RBC Red Blood Cell Count 3.78 M/uL (3.86-4.86)
[2022-07-28 11:51] LABS: Albumin 3.2 g/dL (3.4-5.0); Bilirubin Total 0.4 mg/dL (0.2-1.0); Protein, Total 6.4 g/dL (6.4-8.2)
[2022-07-28] MEDS ORDERED: DIAZEPAM 5 MG TABLET ONE (11:56)
[2022-07-28] MEDS ORDERED: NA CHLORIDE 0.9% 500 ML ONE (11:57)
[2022-07-28] MEDS ORDERED: MORPHINE 4 MG/ML SYR ONE (11:57)
[2022-07-28] MEDS ORDERED: ONDANSETRON 4 MG/2 ML VIAL ONE (11:57)
[2022-07-28] MEDS ORDERED: dexAMETHasone 10 MG/ML VIAL ONE (12:03)
--- NOTE | 2022-07-28 12:10 | ER ---
Nurse's Notes [facility] Name: Jojo Aragon Age: 71 yrs Sex: Female : 1950 Arrival Date: 07/28/2022 Time: 10:36 Bed Treatment Private MD: Diagnosis: Wedge compression fracture of unspecified lumbar vertebra-L2 30 %, subacute;Low back pain;Sciatica;Sciatica, right side;Malignant neoplasm of unspecified kidney, except renal pelvis Presentation: 07/28 10:54 Chief complaint: Patient states: chronic back pain but last night pain was worse, aa5 reports pain to right lower back radiating down right leg. Pt takes tramadol and morphine PO. 10:54 Onset of symptoms was July 2022. aa5 10:54 Coronavirus screen: At this time, the client does not indicate any symptoms associated aa5 with coronavirus-19. Ebola Screen: Patient denies travel to an Ebola-affected area in the 21 days before illness onset. Initial Sepsis Screen: Does the patient meet any 2 criteria? No. Patient's initial sepsis screen is negative. Does the patient have a suspected source of infection? No. Patient's initial sepsis screen is negative. Risk Assessment: Do you want to hurt yourself or someone else? Patient reports no desire to harm self or others. 10:54 Acuity: WOODY 4 aa5 10:54 Method Of Arrival: Wheelchair aa5 Triage Assessment: 12:50 General: Appears in no apparent distress. Behavior is calm, cooperative. iw Musculoskeletal: Historical: - Allergies: 10:54 Bactrim; aa5 10:54 Codeine; aa5 10:54 Demerol; aa5 10:54 Toradol; aa5 - PMHx: 10:54 COPD; Fibromyalgia; Hypertension; Chronic back pain; aa5 10:54 Renal cell carcinoma; aa5 - Immunization history:: Adult Immunizations unknown. - Social history:: Smoking status: Patient denies any tobacco usage or history of. - Family history:: not pertinent. Screenin:50 [facility] ED Fall Risk Assessment (Adult) History of falling in the last 3 months, iw including since admission Yes- single mechanical fall (1 pt). Abuse screen: Denies threats or abuse. Denies injuries from another. Nutritional screening: No deficits noted. Tuberculosis screening: No symptoms or risk factors identified. Assessment: 12:15 General: Appears in no apparent distress. Behavior is calm, cooperative. Pain: iw Complains of pain in right mid back and right low back. Neuro: Level of Consciousness is awake, alert, obeys commands, Oriented to person, place, time, situation. Cardiovascular: Patient's skin is warm and dry. Respiratory: Respiratory effort is even, unlabored, Respiratory pattern is regular. Derm: Skin is intact. Musculoskeletal: Range of motion:. 12:58 Reassessment: Patient appears in no apparent distress at this time. Patient and/or iw family updated on plan of care and expected duration. Pain level reassessed. Patient is alert, oriented x 3, equal unlabored respirations, skin warm/dry/pink. Vital Signs: 10:54 BP 153 / 72; Pulse 70; Resp 16 S; Temp 98(TE); Pulse Ox 100% on R/A; Weight 75.3 kg aa5 (R); Height 5 ft. 2 in. (R); 10:54 Body Mass Index 30.36 (75.30 kg, 157.48 cm) aa5 ED Course: 10:44 Patient arrived in ED. mr 10:53 Raymundo Almodovar MD is Attending Physician. [facility] 10:54 Arm band placed on. aa5 10:56 Triage completed. aa5 11:09 CT Lumbar Spine Wo Con In Process Unspecified. EDMS 11:29 Initial lab(s) drawn, by nd, sent to lab. Inserted saline lock: 22 gauge in left aa5 antecubital area, using aseptic technique. Blood collected. 12:03 Eri Julien, FRED is Primary Nurse. iw 12:08 Kirby Chaudhari MD is Referral Physician. marv 12:15 Patient has correct armband on for positive identification. iw 12:58 No provider procedures requiring assistance completed. IV discontinued, intact, iw bleeding controlled, No redness/swelling at site. Pressure dressing applied. Administered Medications: 12:03 Drug: NS 0.9% IV 500 ml Route: IV; Rate: bolus; Site: left antecubital; iw 12:40 Follow up: IV Status: Completed infusion iw 12:03 Drug: morphine IVP or IV 4 mg Route: IVP; Infused Over: 4 mins; Site: left antecubital; iw 12:15 Follow up: Response: No adverse reaction; Pain is decreased iw 12:03 Drug: Ondansetron IVP 4 mg Route: IVP; Site: left antecubital; iw 12:15 Follow up: Response: No adverse reaction iw 12:03 Drug: Diazepam PO 5 mg Route: PO; iw 12:15 Follow up: Response: No adverse reaction; Pain is decreased iw 12:03 Drug: Decadron - Dexamethasone IVP 10 mg Route: IVP; Site: left antecubital; iw 12:15 Follow up: Response: No adverse reaction iw Medication: 12:15 VIS not applicable for this client. iw Outcome: 12:09 Discharge ordered by . marv 12:59 Discharged to home ambulatory, with family. iw 12:59 Condition: good 12:59 Discharge instructions given to patient, family, Instructed on discharge instructions, follow up and referral plans. medication usage, Demonstrated understanding of instructions, follow-up care, medications, Prescriptions given X 2. 12:59 Patient left the ED. iw Signatures: Dispatcher [employer] EDRaymundo Boston MD MD cha Rivera Celia mr Eri Julien, RN RN Nargis Saldivar RN RN aa5
--- NOTE | 2022-07-28 12:10 | EDPHYS ---
Physician Documentation [facility] Name: Jojo Aragon Age: 71 yrs Sex: Female : 1950 Arrival Date: 07/28/2022 Time: 10:36 Bed Treatment Private MD: MYRA Physician Raymundo Almodovar HPI: 07/28 12:02 This 71 yrs old Female presents to ER via Wheelchair with complaints of Back marv Pain. 12:02 The patient presents with pain that is acute, with no known mechanism of injury. The marv symptoms are located in the low back. Onset: The symptoms/episode began/occurred 3 day(s) ago. The pain radiates to the right low back. Associated signs and symptoms: The patient has no apparent associated signs or symptoms. The problem was sustained from unknown cause. Modifying factors: The patient symptoms are alleviated by remaining still, the patient symptoms are aggravated by movement, standing. Severity of symptoms: At their worst the symptoms were mild, moderate, in the emergency department the symptoms are unchanged. The patient has experienced similar episodes in the past, several times. Historical: - Allergies: 10:54 Bactrim; aa5 10:54 Codeine; aa5 10:54 Demerol; aa5 10:54 Toradol; aa5 - PMHx: 10:54 COPD; Fibromyalgia; Hypertension; Chronic back pain; aa5 10:54 Renal cell carcinoma; aa5 - Immunization history:: Adult Immunizations unknown. - Social history:: Smoking status: Patient denies any tobacco usage or history of. - Family history:: not pertinent. ROS: 12:02 Constitutional: Negative for fever, chills, and weight loss, Eyes: Negative for injury, marv pain, redness, and discharge, ENT: Negative for injury, pain, and discharge, Neck: Negative for injury, pain, and swelling, Cardiovascular: Negative for chest pain, palpitations, and edema, Respiratory: Negative for shortness of breath, cough, wheezing, and pleuritic chest pain, Abdomen/GI: Negative for abdominal pain, nausea, vomiting, diarrhea, and constipation, : Negative for injury, bleeding, discharge, and swelling, MS/Extremity: Negative for injury and deformity, Skin: Negative for injury, rash, and discoloration, Neuro: Negative for headache, weakness, numbness, tingling, and seizure, Psych: Negative for depression, anxiety, suicide ideation, homicidal ideation, and hallucinations, Allergy/Immunology: Negative for hives, rash, and allergies, Endocrine: Negative for neck swelling, polydipsia, polyuria, polyphagia, and marked weight changes, Hematologic/Lymphatic: Negative for swollen nodes, abnormal bleeding, and unusual bruising. 12:02 Back: Positive for injury or acute deformity, decreased range of motion, pain at rest, pain with movement, of the right mid back and right low back. Exam: 12:02 Constitutional: This is a well developed, well nourished patient who is awake, alert, marv and in no acute distress. Head/Face: Normocephalic, atraumatic. Eyes: Pupils equal round and reactive to light, extra-ocular motions intact. Lids and lashes normal. Conjunctiva and sclera are non-icteric and not injected. Cornea within normal limits. Periorbital areas with no swelling, redness, or edema. ENT: Nares patent. No nasal discharge, no septal abnormalities noted. Tympanic membranes are normal and external auditory canals are clear. Oropharynx with no redness, swelling, or masses, exudates, or evidence of obstruction, uvula midline. Mucous membranes moist. Neck: Trachea midline, no thyromegaly or masses palpated, and no cervical lymphadenopathy. Supple, full range of motion without nuchal rigidity, or vertebral point tenderness. No Meningismus. Chest/axilla: Normal chest wall appearance and motion. Nontender with no deformity. No lesions are appreciated. Cardiovascular: Regular rate and rhythm with a normal S1 and S2. No gallops, murmurs, or rubs. Normal PMI, no JVD. No pulse deficits. Respiratory: Lungs have equal breath sounds bilaterally, clear to auscultation and percussion. No rales, rhonchi or wheezes noted. No increased work of breathing, no retractions or nasal flaring. Abdomen/GI: Soft, non-tender, with normal bowel sounds. No distension or tympany. No guarding or rebound. No evidence of tenderness throughout. Female : Normal external genitalia. Skin: Warm, dry with normal turgor. Normal color with no rashes, no lesions, and no evidence of cellulitis. MS/ Extremity: Pulses equal, no cyanosis. Neurovascular intact. Full, normal range of motion. Neuro: Awake and alert, GCS 15, oriented to person, place, time, and situation. Cranial nerves II-XII grossly intact. Motor strength 5/5 in all extremities. Sensory grossly intact. Cerebellar exam normal. Normal gait. Psych: Awake, alert, with orientation to person, place and time. Behavior, mood, and affect are within normal limits. 12:02 Back: pain, that is mild, ROM is painful, with flexion, with extension, normal spinal alignment noted, CVA tenderness, is absent, muscle spasm, is appreciated in the left low back, left mid back, right mid back and right low back. Vital Signs: 10:54 BP 153 / 72; Pulse 70; Resp 16 S; Temp 98(TE); Pulse Ox 100% on R/A; Weight 75.3 kg aa5 (R); Height 5 ft. 2 in. (R); 10:54 Body Mass Index 30.36 (75.30 kg, 157.48 cm) aa5 MDM: 10:53 Patient medically screened. [facility] 07/28 10:57 Order name: CBC with Diff; Complete Time: 11:53 [facility] 07/28 10:57 Order name: Comprehensive Metabolic Panel; Complete Time: 11:53 [facility] 07/28 10:57 Order name: CT Lumbar Spine Wo Con; Complete Time: 11:53 [facility] Administered Medications: 12:03 Drug: NS 0.9% IV 500 ml Route: IV; Rate: bolus; Site: left antecubital; iw 12:40 Follow up: IV Status: Completed infusion iw 12:03 Drug: morphine IVP or IV 4 mg Route: IVP; Infused Over: 4 mins; Site: left antecubital; iw 12:15 Follow up: Response: No adverse reaction; Pain is decreased iw 12:03 Drug: Ondansetron IVP 4 mg Route: IVP; Site: left antecubital; iw 12:15 Follow up: Response: No adverse reaction iw 12:03 Drug: Diazepam PO 5 mg Route: PO; iw 12:15 Follow up: Response: No adverse reaction; Pain is decreased iw 12:03 Drug: Decadron - Dexamethasone IVP 10 mg Route: IVP; Site: left antecubital; iw 12:15 Follow up: Response: No adverse reaction iw Disposition Summary: 07/28/22 12:09 Discharge Ordered Location: Home marv Problem: new marv Symptoms: have improved marv Condition: Stable marv Diagnosis - Wedge compression fracture of unspecified lumbar vertebra - L2 30 %, subacute marv - Low back pain marv - Sciatica marv - Sciatica, right side marv - Malignant neoplasm of unspecified kidney, except renal pelvis marv Followup: marv - With: Private Physician - When: 2 - 3 days - Reason: Recheck today's complaints, Continuance of care, Re-evaluation by your physician Followup: marv - With: Kirby Chaudhari MD - When: 2 - 3 days - Reason: Recheck today's complaints, Re-evaluation by your physician Discharge Instructions: - Discharge Summary Sheet marv - Acute Back Pain, Adult marv - Chronic Back Pain marv - Spinal Compression Fracture marv - Musculoskeletal Pain marv - Sciatica, [id number] marv Forms: - Medication Reconciliation Form marv - Thank You Letter marv - Antibiotic Education marv - Prescription Opioid Use marv Prescriptions: - dexamethasone 2 mg Oral tablet - take 2 tablet by ORAL route every 12 hours; 8 tablet; Refills: 0, Product marv Selection Permitted - Valium 5 mg Oral Tablet - take 1 tablet by ORAL route every 8 hours As needed; 20 tablet; Refills: 0, marv Product Selection Permitted Signatures: Dispatcher [employer] Raymundo Damon MD MD cha Williams, Irene, RN RN Nargis Saldivar RN RN aa5
[2022-07-28 13:04] VITALS: BP 153/72; TEMP 98; O2SAT 100
== END 2022-07-28 12:59 | disposition home or self-care (01) ==
LOC: ER 10:36
DX: S32.020A Wedge compression fracture of second lumbar vertebra, initial encounter for closed fracture (principal); M54.31 Sciatica, right side; C64.9 Malignant neoplasm of unspecified kidney, except renal pelvis; I10 Essential (primary) hypertension; Z88.1 Allergy status to other antibiotic agents; Z88.5 Allergy status to narcotic agent
CPT/HCPCS: 96361; 85025; 36415; 80053; 72131; 96375; 96374; 99284; J1100; J2405; J7040